=== PATIENT | female | born 1955 | race Caucasian/White ===

== ENCOUNTER → 2021-11-15 10:33 | Outpatient (BNVA) | payer MEDICARE, SELFPAY | PROVIDERS: Family Provider Family Medicine; PCP Family Medicine; Referring Provider Family Medicine; Visit Provider Internal Medicine Critical Care Medicine | DX: R91.8 Other nonspecific abnormal finding of lung field (principal); J43.9 Emphysema, unspecified; I25.10 Atherosclerotic heart disease of native coronary artery without angina pectoris; Z95.5 Presence of coronary angioplasty implant and graft | CPT/HCPCS: 99204 ==

== ENCOUNTER 2021-11-26 05:22 | Day surgery (SDC) | payer MEDICARE, SELFPAY ==
[2021-11-22 11:46] VITALS: BMI 20.9
[2021-11-26] VITALS (10 sets, daily range): BP systolic 94–127; BP diastolic 45–69; PULSE 72–85; RESP 14–18; TEMP 36.3–36.4; O2SAT 88–98
[2021-11-26] MEDS: sodium chloride 0.9% 1,000 ML 30 ML IV (06:39)
--- NOTE | 2021-11-26 07:08 | W.PM.OPSUD ---
Surgery/Procedure H&P Update DATE OF PROCEDURE: November 26, 2021 DATE H&P PERFORMED: 11/15/21 PREOP DIAGNOSIS: Suspected lung cancer PRIMARY INDICATION FOR PROCEDURE: Suspected lung cancer PLANNED PROCEDURE: Bronchoscopy inspection of the airway, possible endobronchial biopsy, bronchoalveolar lavage, endobronchial ultrasound-guided transbronchial needle aspiration of lymph nodes and control of bleeding Operation Date: 11/26/21 07:10 Proposed Procedures p Bronchoscopy [id number],R91.8(Not Applicable) - Roby Lovelace MD s Ebus(Not Applicable) - Roby Lovelace MD
--- NOTE | 2021-11-26 07:15 | ANES.PREANE2 ---
Pre-Anesthetic Assessment Height/Weight: Height 1.68 m Weight 58.967 kg Temp Pulse Resp BP Pulse Ox O2 Del Method 97.5 F L 72 18 127/55 96 11/26/21 06:37 11/26/21 06:37 11/26/21 06:37 11/26/21 06:37 11/26/21 06:37 11/26/21 06:37 Preop Diagnosis: Suspected lung cancer Operation Date: 11/26/21 07:10 Proposed Procedures p Bronchoscopy 26339,[id number],69079,R91.8(Not Applicable) - Roby Lovelace MD s Ebus(Not Applicable) - Roby Lovelace MD Familial anesthetic complications: None Was Beta Padmaja taken within 24 hours: N/A Was Clonidine taken within 24 hours: N/A Last intake: Intake Last Liquid Date 11/25/21 Last Liquid Time 19:30 Last Solid Date 11/25/21 Last Solid Time 19:30 Social Tobacco and No alcohol 1 pack(s) per day 53 pack years Exam alert, oriented x 3, clear to auscultation bilaterally and regular rate & rhythm Airway Submandibular: within normal limits Cervical ROM: within normal limits Mallampati: Class II Dentition: partials History/ROS No significant history except as noted Pulmonary Cough, Exertional Dyspnea and Shortness of Breath suspected lung cancer CV/HEM Coronary Artery Disease pt states she has 3 stents placed about a year ago None reported Hepatic None reported GI None reported Metabolic None reported Musc/skel None reported Neuropsych Anxiety Anesthetic Plan ASA status: 3 Anesthesia: Anesthesia Evaluation and General Risk of > 500 ml blood loss (7ml/kg in children): No Medications/Allergies Home Medications Medication Instructions Recorded Confirmed Last Taken Type alprazolam 1 mg tablet 1 mg PO .HS 03/13/20 11/26/21 11/25/21 History aspirin 81 mg tablet,delayed 81 mg PO DAILY #30 tabs 03/11/21 11/26/21 11/18/21 Rx release (Adult Low Dose Aspirin) carvedilol 6.25 mg tablet 6.25 mg PO BID #60 tabs 03/11/21 11/26/21 11/25/21 Rx clopidogrel 75 mg tablet 75 mg PO DAILY #30 tabs 03/11/21 11/26/21 11/15/21 Rx lovastatin 40 mg tablet 40 mg PO DAILY #30 tabs 03/11/21 11/26/21 11/15/21 Rx lisinopril 20 mg tablet 20 mg PO DAILY 11/26/21 11/26/21 11/15/21 History Allergies Allergy/AdvReac Type Severity Reaction Status Date / Time Penicillins Allergy Unknown Verified 11/26/21 06:14 poison yeny extract Allergy ALGY-Rash Verified 11/26/21 06:14 poison oak extract Allergy ALGY-Rash Verified 11/26/21 06:14 Current Medications Generic Name Dose Route Start Last Admin Trade Name Freq PRN Reason Stop Dose Admin Sodium Chloride 1,000 mls @ 30 mls/hr 11/26/21 06:00 11/26/21 06:39 Sodium Chloride 0.9% IV 11/27/21 05:59 30 mls/hr .Q24H JOSE LUIS Administration PFSH Anesthesia Medical History CAD (coronary artery disease) History of ST elevation myocardial infarction (STEMI) HTN (hypertension) PVD (peripheral vascular disease) Family History Mother Cancer Father Cancer Hypertension Brother Myocardial infarction Social History Smoking and tobacco status: current every day smoker (couple ) cigarettes Packs smoked per day: 1.5 Years cigarettes smoked: 53 [ Other cigarette details: started at age 12] Data Anesthesia Cardiac Studies: No Data to Display
--- NOTE | 2021-11-26 08:08 | PM.OP ---
Operative Report Date of procedure: November 26, 2021 Pre-op diagnosis: Preop Diagnosis Suspected lung cancer Brief History: This is a 65-year-old lady with an extensive history of smoking coming in for bronchoscopic evaluation for suspected lung cancer. A recent PET/CT revealed right upper lobe lung nodule, right hilar lesion that are all PET positive. The patient had PET positive mediastinal and hilar lymphadenopathy as well. Procedure: Name of the procedure: Bronchoscopy with inspection of the airway, endobronchial biopsies, bronchial wash, endobronchial ultrasound-guided transbronchial needle aspiration of lymph nodes and control of bleeding. Indication: Suspected lung cancer Anesthesia: General anesthesia. Local anesthesia: The jaida in the right and left mainstem bronchi were anesthetized with 1% lidocaine, 3 mL. Description of the procedure: The procedure was explained to the patient and the consent was obtained. The patient was brought to the OR. The patient underwent endotracheal intubation for general anesthesia. Following induction of general anesthesia, the bronchoscope was advanced through the ET tube. The lower trachea appeared to be normal. The jaida was splayed. The jaida, the right and left mainstem bronchi are anesthetized with 1% lidocaine. In a systematic manner bilateral bronchial tree was then examined. The bronchoscope was advanced into the left mainstem bronchus. The left upper lobe, lingula and left lower lobe bronchi were examined up to the third subsegmental level and no abnormalities were identified. There is no endobronchial lesion, active bleeding or mucous plug. The bronchoscope was then introduced into the right mainstem bronchus. The right upper lobe was patent. The right bronchus intermedius was nearly completely occluded due to endobronchial growth. I was not able to pass the bronchoscope beyond this lesion. Endobronchial biopsies were obtained from the right bronchus intermedius mass. Multiple samples were obtained. Bronchial wash was performed from the same area. 30 cc of fluid was instilled, fluid return was 12 mL. The fluid was bloody. The endobronchial ultrasound was introduced through the ET tube. Mediastinal and hilar lymphadenopathy was identified with the ultrasound. Fine-needle aspiration was obtained from station 7 and station 10 R. Samples: 1. Bronchoalveolar lavage specimen was sent for cytology and cell block. 2. The endobronchial biopsies are sent for histopathology. 3. The transbronchial needle aspiration of the aforementioned lymph node groups were sent for histopathology. Complications: There was no immediate complications.
--- NOTE | 2021-11-26 08:27 | ANE.PACU2 ---
Inpatient post-anesthesia follow up: Airway intact: Yes Vital signs: Temperature 97.5 F Pulse Rate 72 Respiratory Rate 18 Blood Pressure 127/55 Pulse Oximetry 96 Oxygen Delivery Me thod Room Air Oxygen Flow Rate Fraction of Inspir ed Oxygen Hydration adequate: Yes Nausea and vomiting: No Pain level: Other (0) Mental status: Baseline
[2021-11-26 08:50] LABS: Cyto Order Verification Order Verified
[2021-11-26 10:11] LABS: Apprearance, Bronch Wash Bloody (CLEAR); Color, Bronc Wash Red
[2021-11-26 11:14] LABS: Total Cells Counted Bronch 300
== END 2021-11-26 09:25 | disposition home or self-care (01) ==
PROVIDERS: PCP Family Medicine; Visit Provider Internal Medicine Critical Care Medicine
PROC: BB4BZZZ Ultrasonography of Pleura (ICD-10-PCS; CPT 31625; 2021-11-26 07:00)
DX: C34.91 Malignant neoplasm of unspecified part of right bronchus or lung (principal); C77.1 Secondary and unspecified malignant neoplasm of intrathoracic lymph nodes; J43.9 Emphysema, unspecified; I10 Essential (primary) hypertension; E78.5 Hyperlipidemia, unspecified; I25.10 Atherosclerotic heart disease of native coronary artery without angina pectoris; I25.2 Old myocardial infarction; F17.210 Nicotine dependence, cigarettes, uncomplicated; Z79.02 Long term (current) use of antithrombotics/antiplatelets; Z88.0 Allergy status to penicillin
CPT/HCPCS: 31625; 31624; 31652; 80503; 87070; 87205; 88108; 88305; 88307; 88342; 89050; J0330; J1100; J2250; J2370; J2405; J2704; J3010; J3490; J7030

== ENCOUNTER 2021-12-12 12:51 | Outpatient (CLI) | payer MEDICARE, SELFPAY ==
--- NOTE | 2021-12-12 13:00 | MR_ITS ---
WS: [id number] MRI HEAD WITH CONTRAST TECHNIQUE: Sagittal T1, T2 axial, T2 axial FLAIR, axial susceptibility weighted imaging, axial diffus ion weighted images, and coronal T2 images were obtained. Pre and post-T1 axial and post T1 coronal i mages. ADC and FSPGR images. CLINICAL INFORMATION: Staging COMPARISON: None. FINDINGS: Tiny focus of restricted diffusion in the RIGHT cerebellum consistent with a tiny acute lac unar infarct. Ventricular system and basal cisterns are patent. Evidence of prior chronic lacunar infarcts in the R IGHT cerebellum. Mild small vessel changes with moderate parenchymal volume loss. Small vessel changes in the melissa. Ch ronic lacunar infarcts in the RIGHT cerebellum. Normal vascular flow voids at the skull base. No extr a-axial fluid collections. No evidence of mass or mass effect. Normal posterior nasopharynx. Paranasal sinuses and mastoid air cells well aerated. Normal optic ti sm and pituitary infundibulum. Mild symmetric atrophy temporal lobes and hippocampal formations. No e vidence of enhancing intracranial metastatic disease. Normal dural venous sinuses. MR/MR head wo/w con [id number] IMPRESSION: 1. Tiny focus of restricted diffusion RIGHT cerebellum consistent with a tiny acute lacunar infarct. 2. Evidence of chronic lacunar infarcts in the RIGHT cerebellum. 3. No evidence of enhancing intracranial metastatic disease. 4. Mild small vessel changes. Moderate parenchymal volume loss. Small vessel c hanges in the melissa. 5. No other remarkable findings.
[2021-12-12] MEDS: gadobenate dimeglumine 20 mL vial IV (14:07)
== END 2021-12-12 12:52 | disposition home or self-care (01) ==
PROVIDERS: PCP Family Medicine; Visit Provider Internal Medicine Medical Oncology
DX: C34.2 Malignant neoplasm of middle lobe, bronchus or lung (principal); I63.81 Other cerebral infarction due to occlusion or stenosis of small artery
CPT/HCPCS: 70553

== ENCOUNTER 2021-12-18 13:36 | Oncology outpatient (recurring) (ONCR) | payer MEDICARE, SELFPAY ==
--- NOTE | 2021-12-04 13:35 | XR_ITS ---
WS: [id number] PA and lateral chest, 12/04/2021 Clinical Data: Shortness of breath and cough Comparison: Portable chest, 09/05/2016. CT chest, 11/11/2021. Findings: There are patchy opacities in the right lung with a shift of the heart and mediastinum from left to right. These opacities may represent obstructive pneumonia which is obscuring a right upper lobe nodule seen on the CT scan. The left lung is clear. The heart is normal. The aortic arch shows c alcification. No pneumothorax is seen. The diaphragms are flattened. No effusions are seen. XR/XR chest 2V* [id number] Impression: 1. Right lung patchy opacities which are obscuring the right upper lobe mass se en on CT scan. 2. Shift of the heart and mediastinum from left to right.
--- NOTE | 2021-12-18 14:20 | N.ONRAD NP_ITS ---
Radiation Oncology Consultation Patient Name: Atiya Newsome Date of : 1955 Date of Service: 12/18/2021 Attending Physician: Ac Pacheco M.D. Atiya Newsome was seen in consultation this afternoon at the request of Miguel Ángel Jade M.D. for consideration of thoracic radiotherapy in the management of a recently diagnosed non-small cell lung cancer. The patient evaluated by her primary care physician for rib pain. A chest radiograph identified a right lung nodule. A thoracic CT scan ordered on November 11, 2021 described a 3.8 cm right upper-lobe mass abutting the pleural surface, consolidation within the right lower-lobe, right hilar lymphadenopathy, and a 2 cm lesion within the medial aspect of the right lower-lobe of the lung. A PET scan (independently reviewed in [facility]) ordered on October confirmed a hypermetabolic a right upper-lobe nodule (SUV 21.2, a right lower lobe nodule (10.2), right hilar adenopathy (SUV 17.8), a pre-carinal lymph node (SUV 5.9), and a subcarinal lymph node (SUV 5.9). There was no systemic metastatic disease. A bronchoscopy with endobronchial ultrasound-guided biopsy was performed by Abel Lovelace M.D. on November 26, 2021. Biopsies of the right bronchus intermedius mass and lymph node from station 10R diagnosed a squamous cell carcinoma. An MRI of the head did not characterize intracranial metastatic disease. The patient was evaluated for definitive thoracic radiotherapy. I discussed with Ms. Newsome the [place] [employer] Staging for lung cancer and specifically, the clinical stage IIIB (T4N2) lung cancer corresponding to her disease. I also reviewed The National Comprehensive Cancer Network Guidelines recommending concurrent chemoradiotherapy for the management of locally advanced lung cancer established by the classic study, RTOG 9410, comparing sequential versus concurrent chemoradiotherapy that demonstrated an overall survival advantage for the concurrent chemoradiotherapy regimen. I would endorse a six week course of thoracic radiotherapy. Preceding radiotherapy, a computed tomographic radiotherapy planning scan with contrast in the treatment position will be acquired and co-registered to the patient's staging PET scan to identify the gross tumor volumes. The potential toxicities of thoracic radiotherapy were reviewed. The patient has verbalized understanding would like to proceed as recommended. The patient???s treatment plan was discussed with Miguel Ángel Jade M.D. Signed by: Dr. Ac Pacheco 12/18/2021 3:00:29 PM
[2021-12-18 15:52] LABS: Basophils # 0.1 10^3/uL (0.0-0.1); Basophils % 0.2 %; Eosinophils # 0.1 10^3/uL (0.0-0.8); Eosinophils % 0.3 %; Hematocrit 36.5 % (37.0-47.0); Hemoglobin 11.6 g/dL (11.5-15.3); Lymphocytes # 3.5 10^3/uL (0.8-4.8); Lymphocytes % 13.5 %; Mean Corpuscular HGB Conc 31.8 g/dL (30.0-36.0); Mean Corpuscular Volume 91.3 fl (81-99); Mean Platelet Volume 10.8 fL (7.4-10.4); Monocytes # 1.8 10^3/uL (0.2-0.9); Monocytes % 6.7 %; Neutrophils # 20.42 10^3/uL (1.8-7.7); Neutrophils % 78.2 %; Nucleated Red Blood Cells % 0 %; Platelet Count 366 10^3/cmm (130-400); Red Cell Distribution Width 17.3 % (12.1-15.1); White Blood Count 26.1 10^3/uL (4.0-10.0)
[2021-12-18 16:02] LABS: INR 0.97 (0.8-1.2)
[2021-12-18 16:13] LABS: Alanine Aminotransferase 11 U/L (0-33); Albumin Level 3.5 g/dL (3.5-5.2); Alkaline Phosphatase 52 U/L (35-105); Aspartate Amino Transferase 12 U/L (0-32); Blood Urea Nitrogen 38 mg/dL (8-23); Carbon Dioxide 27 mmol/L (22-29); Chloride 100 mmol/L (98-107); Globulin 3.3 g/dL (1.3-4.6); Glucose 78 mg/dL (65-115); Osmolality Calculated 298 mOsm/kg (285-295); Sodium 140 mmol/L (136-145); Total Bilirubin 0.2 mg/dL (0.15-1.2); Total Protein 6.8 g/dL (6.6-8.7)
[2021-12-18 16:16] LABS: Anion Gap 17.6 (5-19); Potassium 4.6 mmol/L (3.5-5.1)
== END 2021-12-27 23:59 | disposition home or self-care (01) ==
PROVIDERS: PCP Family Medicine; Visit Provider Radiology Radiation Oncology
DX: R07.81 Pleurodynia; C34.81 Malignant neoplasm of overlapping sites of right bronchus and lung; C77.8 Secondary and unspecified malignant neoplasm of lymph nodes of multiple regions; Z87.891 Personal history of nicotine dependence
CPT/HCPCS: 36415; 71046; 80053; 85025; 85610; 99205; 99214

== ENCOUNTER → 2021-12-25 10:52 | Outpatient (BNVA) | payer MEDICARE, SELFPAY | PROVIDERS: PCP Family Medicine; Visit Provider Surgery | DX: C34.2 Malignant neoplasm of middle lobe, bronchus or lung (principal) | CPT/HCPCS: 99203 ==

== ENCOUNTER 2021-12-30 07:59 | Day surgery (SDC) | payer MEDICARE, SELFPAY ==
[2021-12-27 16:03] VITALS: BMI 19.8
--- NOTE | 2021-12-30 07:27 | P.ANESASSM_ITS ---
Pre-Anesthetic Assessment Height/Weight: Height 1.68 m Weight 55.792 kg Preop Diagnosis: Suspected lung cancer Operation Date: 12/30/21 09:10 Proposed Procedures p Portacath Placement 46984,C34.2(Not Applicable) - Curt Peguero MD Pulmonary Chronic Obstructive Pulmonary Disease Lung cancer Emphysema CV/HEM Arrythmia (SVT Hx), Coronary Artery Disease, Congestive Heart Failure (Hx of stress induced cardiomyopathy ), Hypertension and Peripheral Vascular Disease Metabolic Hyperlipidemia Neuropsych MRI Head 12/12/21 MR/MR head wo/w con [id number] IMPRESSION: ? 1.? Tiny focus of restricted diffusion RIGHT cerebellum consistent with a tiny acute lacunar infarct. 2.? Evidence of chronic lacunar infarcts in the RIGHT cerebellum. 3.? No evidence of enhancing intracranial metastatic disease. 4.? Mild small vessel changes. Moderate parenchymal volume loss. Small vessel changes in the melissa. 5.? No other remarkable findings. ? Medications/Allergies Home Medications Medication Instructions Recorded Confirmed Last Taken Type alprazolam 1 mg tablet 1 mg PO .HS 03/13/20 12/27/21 11/25/21 History aspirin 81 mg tablet,delayed 81 mg PO DAILY #30 tabs 03/11/21 12/27/21 11/18/21 Rx release (Adult Low Dose Aspirin) carvedilol 6.25 mg tablet 6.25 mg PO BID #60 tabs 03/11/21 12/27/21 11/25/21 Rx clopidogrel 75 mg tablet 75 mg PO DAILY #30 tabs 03/11/21 12/27/21 12/25/21 Rx lovastatin 40 mg tablet 40 mg PO DAILY #30 tabs 03/11/21 12/27/21 11/15/21 Rx lisinopril 20 mg tablet 20 mg PO DAILY 11/26/21 12/27/21 11/15/21 History albuterol sulfate 90 mcg/actuation 2 puff inhalation Q6H PRN 12/18/21 12/27/21 Unknown Rx aerosol inhaler shortness of breath or wheezing #8.5 grams fluticasone fur. 100 mcg-umeclid 1 inh inhalation DAILY #60 ea 12/18/21 12/27/21 Unknown Rx 62.5 mcg-vilant 25 mcg inhalat.powder (Trelegy Ellipta) Allergies Allergy/AdvReac Type Severity Reaction Status Date / Time Penicillins Allergy Unknown Verified 12/27/21 15:59 poison yeny extract Allergy ALGY-Rash Verified 12/27/21 15:59 poison oak extract Allergy ALGY-Rash Verified 12/27/21 15:59 [facility] Anesthesia Medical History Anxiety and depression CAD (coronary artery disease) COPD (chronic obstructive pulmonary disease) History of ST elevation myocardial infarction (STEMI) HTN (hypertension) Peripheral arterial disease Stress-induced cardiomyopathy Surgical History S/P PTCA (percutaneous transluminal coronary angioplasty) Family History Mother Cancer Father Cancer Hypertension Brother Myocardial infarction CAD (coronary artery disease) Denies family history of Diabetes Clotting disorder Dementia Hyperlipidemia Psychiatric illness Chronic kidney disease (CKD) Suicide Anesthesia complication Bleeding disorder Lung disease Stroke Social History Smoking and tobacco status: former smoker Alcohol intake: never Data Anesthesia Cardiac Studies: No Data to Display
--- NOTE | 2021-12-30 09:13 | W.PM.OPSUD ---
Surgery/Procedure H&P Update DATE OF PROCEDURE: December 30, 2021 DATE H&P PERFORMED: 12/25/21 H&P UPDATE INFORMATION: I have reviewed H&P completed within last 30 days, I have examined patient prior to procedure and Changes to prior documentation as noted here (Patient seems to be lethargic and had recently acute onset of chest pain, appears to be dehydrated.) PREOP DIAGNOSIS: Lung cancer PRIMARY INDICATION FOR PROCEDURE: We will hold off proceeding with elective procedure and we will plan to send the patient for the ED for further work-up, patient reports that she did not get anything to drink or eat for the past 5 days, I think it would be wiser to have her further evaluated. And get some IV fluids on board and I will asked my office to reschedule with the patient. Patient and her spouse understood and they agreed on the plan of care. Assurance and education All questions have been answered and all concerns have been addressed to patient's satisfaction. PLANNED PROCEDURE: Operation Date: 12/30/21 09:10 Proposed Procedures p Portacath Placement 49647,C34.2(Not Applicable) - Curt Peguero MD
--- NOTE | 2021-12-30 09:25 | SUR.PREOP ---
PATIENT PRESENTED TO ROOM C/O CHEST PAIN AND NOT EATING OR DRINKING IN 5 DAYS. VS STABLE. REPORTS SHE WENT TO ER IN [place] LAST THURSDAY. LAB REPORTS AND NOTES OBTAINED FROM [facility]. DR. VALLEJO AND ANESTHESIA AWARE. THEY DISCUSSED SITUATION WITH PATIENT AND RECOMMENDED SHE GO TO THE ER. REPORT GIVEN TO ELEANOR. PATIENT TAKEN TO ER
--- NOTE | 2021-12-30 09:53 | PM.MISC ---
Miscellaneous Note Purpose of Documentation: Patient seen pre op by Doctor Mernaurg who recommended evaluation for ER given NPO status for 5 days, generalized weakness, and difficulty swallowing .
== END 2021-12-30 16:38 | disposition home or self-care (01) ==
LOC: OR 08:05
PROVIDERS: PCP Family Medicine; Visit Provider Surgery
DX: Z53.9 Procedure and treatment not carried out, unspecified reason (principal)

== ENCOUNTER 2021-12-30 09:14 | Observation (INO) | payer MEDICARE, SELFPAY ==
[2021-12-30] VITALS (8 sets, daily range): BP systolic 93–130; BP diastolic 50–74; PULSE 69–84; RESP 16–18; TEMP 36.3–37.1; O2SAT 85–98; BMI 19.3; BMI 22.1
--- NOTE | 2021-12-30 09:36 | ECG_ITS ---
[facility] Test Date: 2021-12-30 Pat Name: Atiya Newsome Department: Room: Gender: Female Clinical Lab Specialist: : 1955 Requested By: Bulmaro Vickers Order Number: [id number] Arroyo MD: Manfred Colbert M.D. Measurements Intervals [place] Rate: 72 P: 71 IN: 149 QRS: 64 QRSD: 84 T: 75 QT: 354 QTc: 387 Interpretive Statements SINUS RHYTHM Compared to ECG 09/06/2016 04:09:17 T-wave abnormality no longer present Electronically Signed On 12-30-2021 17:37:50 CDT by Manfred Colbert M.D. [id number]
--- NOTE | 2021-12-30 09:36 | XR_ITS ---
WS: [id number] XR chest 1V portable [id number] REASON FOR EXAM: cp FINDINGS: Compared to previous examination of 12/04/2021 there appears to be increased atelectasis in the right l ower lung. Right hilar mass appears more prominent and dense which likely is due to overlapping of at electatic right lower lung. Posterior right lung mass is less well defined and of decreased density compared to previous examinat ion. Left lung field remains clear. XR/XR chest 1V portable [id number] IMPRESSION: Increased atelectasis in the right lower lung compared to the previous examinat ion.
--- NOTE | 2021-12-30 10:15 | W.ED.CHESTPA ---
HPI - Chest Pain General: Chief Complaint: Chest Pain Stated Complaint: CHEST PAIN/ HASN'T EATEN IN 5 DAYS Time Seen by Provider: 12/30/21 09:39 Source: patient Mode of arrival: ambulatory Limitations: no limitations History of Present Illness: 66-year-old female comes in complaining of chest discomfort that she relates to acid reflux she states been going on for the last 5 days. Does not radiate anywhere she has chronic shortness of breath 2 months ago she was diagnosed with lung cancer on the right lung she is supposed to be getting a port and initiate radiation therapy. She normally is on clopidogrel without was stopped in anticipation of her port placement. She denies hematochezia melena hematemesis or coffee-ground emesis. No dysuria urgency or frequency. No abdominal discomfort no extremity pain or swelling states she has been on the couch last 5 days has not been able to eat or drink. MD complaint: chest pain Onset (ago): day(s) (5) Timing of current episode: episodic Pain radiation: none Severity: moderate Quality: sharp Relieving factors: nothing Exacerbating factors: nothing Associated symptoms: Deny abdominal pain, diaphoresis, dyspnea, fever(s), leg edema, nausea, palpitations, sense of impending doom, syncope or vomiting Review of Systems Const: Reports: fatigue and malaise; Denies: fever(s), chills or diaphoresis ENMT: Denies: throat pain, ear or mastoid pain, nasal discharge or nasal congestion Card: Reports: chest pain; Denies: palpitations, irregular heart rhythm, edema or syncope Resp: Denies: dyspnea GI: Denies: abdominal pain, nausea or vomiting : Denies: flank pain, difficulty voiding, dysuria, urinary frequency or urinary urgency Skin/Breast: Denies: rash or pruritus PFS ED PFSH: Medical History Anxiety and depression CAD (coronary artery disease) COPD (chronic obstructive pulmonary disease) History of ST elevation myocardial infarction (STEMI) HTN (hypertension) Peripheral arterial disease Stress-induced cardiomyopathy Surgical History S/P PTCA (percutaneous transluminal coronary angioplasty) Family History Mother Cancer Father Cancer Hypertension Brother Myocardial infarction CAD (coronary artery disease) Denies family history of Diabetes Clotting disorder Dementia Hyperlipidemia Psychiatric illness Chronic kidney disease (CKD) Suicide Anesthesia complication Bleeding disorder Lung disease Stroke Social History Smoking and tobacco status: former smoker Alcohol intake: never Physical Exam Const: GENERAL APPEARANCE: cooperative and comfortable ORIENTATION/CONSCIOUSNESS: Yes awake, Yes oriented to person, Yes oriented to place and Yes oriented to time HENMT: COMMON NORMALS: normocephalic, atraumatic and hearing grossly normal bilaterally HEAD & SCALP: normocephalic and atraumatic Neck/C-Spine: COMMON NORMALS: full ROM and no lymphadenopathy Lymph: LYMPHATIC: no lymphadenopathy noted and no lymphedema noted Resp: COMMON NORMALS: normal respiratory effort, No retractions, No use of accessory muscles and clear to auscultation bilaterally AUSCULTATION: clear to auscultation bilaterally Cardio: COMMON NORMALS: regular rate, regular rhythm and No murmurs present (Cardio) RATE: regular rate RHYTHM: regular rhythm GI: COMMON NORMALS: Soft to palpation and No hepatosplenomegaly present AUSCULTATION: Yes normoactive bowel sounds PALPATION: Yes Soft to palpation, No Tenderness to palpation present (GI), No Guarding due to palpation present (GI) and Yes No hepatosplenomegaly present : COMMON NORMALS: Yes no CVA tenderness BLADDER/KIDNEY EXAM: Yes no CVA tenderness Back/Pelvis: COMMON NORMALS: no CVA tenderness Extremity: COMMON NORMALS: normal to inspection, capillary refill normal, no clubbing, cyanosis or edema, no calf tenderness and no pedal edema Neuro: SENSORIUM/ORIENTATION: Yes oriented to person, Yes oriented to place and Yes oriented to time Skin: COMMON NORMALS: no rashes or lesions noted GENERAL SKIN EXAM: no rashes or lesions noted Course Vital Signs: Vital signs: Vital Signs Temperature 98.3 F 12/31/21 03:36 Pulse Rate 67 12/31/21 06:00 Respiratory Rate 16 12/31/21 03:36 Blood Pressure 94/60 12/31/21 03:36 Pulse Oximetry 98 12/31/21 03:36 Oxygen Delivery Me thod 12/31/21 03:36 Oxygen Flow Rate 1 12/31/21 03:36 MDM - Chest Pain Medical Decision Making Patient presents with severe chest pain. Reviewed previous CT in the [facility] system from outside facility and repeated CT today. Patient has significant progression of tumor. There is a question of empyema versus necrotic tumor discussed with Dr. Astorga and with Dr. Lovelace. Dr. Astorga does not feel it is something that he could successfully intervene on. Dr. Lovelace recommends transfer to [place] for bronchial stenting to try to relieve the postobstructive pneumonia. I discussed with the patient she wanted to consider transfer. I called [place] they are not taking any transfers offered to the patient to call [facility] or [place] to pursue similar treatments she declined she would rather not be transferred that far. After reviewing her chart and discussing with Dr. Jade ultimately we decided to admit her here for IV fluids and placement of vascular access. Because of her pneumonia and her current lung status she may not be able to get a port she may have to have a PICC line placed additionally because of the difficulty she is having with swallowing she may need a PEG tube. Discussed with Dr. Peguero and Dr. Chowdary. Dr. Chowdary will admit for the hospitalist service, Dr. Peguero will consult evaluate for vascular access I did call Dr. Lovelace back just to make sure he was aware that she was being admitted and he will weigh in as needed. Reviewed with the family they concur with plan. Dr. Jade is also aware and will make arrangements for initiation of treatment as soon as patient is able. Medical Records I reviewed the patient's medical records. Lab Data I reviewed the patient's lab results. : 12/31/21 04:30 12/31/21 04:30 Radiology Impressions Chest X-Ray 12/30/21 09:36 IMPRESSION: Increased atelectasis in the right lower lung compared to the previous examination. Chest CT 12/30/21 11:29 IMPRESSION: 1. Spiculated RIGHT upper lobe neoplasm is similar to the prior studies measuring 2.2 x 2.0 CM. 2. Partial collapse the RIGHT lower lobe is new from previous with secretions and obstruction of the RIGHT lower lobe bronchi. 3. Secretions with bronchovascular thickening about the RIGHT mainstem bronchus with narrowing is progressed. 4. New low-attenuation fluid or necrotic tumor about the RIGHT hilum extending along the collapsed RIGHT lower lobe and RIGHT fissure with associated peripheral enhancement suspicious for empyema. This is new from previous.Some of the RIGHT hilum process likely represents tumor necrosis. 5. LEFT lung is well aerated. Notified Rober Barton DO at 12/30/2021 12:22 PM. Laboratory Results WBC 8.4 10^3/uL (4.0-10.0) 12/30/21 10:17 RBC 3.43 10^6/uL (4.1-5.3) L 12/30/21 10:17 Hgb 10.4 g/dL (11.5-15.3) L 12/30/21 10:17 Hct 33.5 % (37.0-47.0) L 12/30/21 10:17 MCV 97.7 fl (81-99) 12/30/21 10:17 MCH 30.3 pg (28.0-34.0) 12/30/21 10:17 MCHC 31.0 g/dL (30.0-36.0) 12/30/21 10:17 RDW 17.3 % (12.1-15.1) H 12/30/21 10:17 Plt Count 211 10^3/cmm (130-400) 12/30/21 10:17 MPV 10.8 fL (7.4-10.4) H 12/30/21 10:17 Neut % (Auto) 68.0 % 12/30/21 10:17 Lymph % (Auto) 18.1 % 12/30/21 10:17 [place] % (Auto) 9.9 % 12/30/21 10:17 Eos % (Auto) 3.0 % 12/30/21 10:17 Baso % (Auto) 0.4 % 12/30/21 10:17 Neut # (Auto) 5.71 10^3/uL (1.8-7.7) 12/30/21 10:17 Lymph # (Auto) 1.5 10^3/uL (0.8-4.8) 12/30/21 10:17 [place] # (Auto) 0.8 10^3/uL (0.2-0.9) 12/30/21 10:17 Eos # (Auto) 0.3 10^3/uL (0.0-0.8) 12/30/21 10:17 Baso # (Auto) 0.0 10^3/uL (0.0-0.1) 12/30/21 10:17 Nucleated RBC % (auto) 0 % 12/30/21 10:17 Nucleated RBCs # 0.0 /100WBC 12/30/21 10:17 Sodium 132 mmol/L (136-145) L 12/30/21 10:17 Potassium 3.7 mmol/L (3.5-5.1) 12/30/21 10:17 Chloride 97 mmol/L (98-107) L 12/30/21 10:17 Carbon Dioxide 20 mmol/L (22-29) L 12/30/21 10:17 Anion Gap 18.7 (5-19) 12/30/21 10:17 BUN 25 mg/dL (8-23) H 12/30/21 10:17 Creatinine 0.5 mg/dL (0.5-0.9) 12/30/21 10:17 GFR Calculation 123.1 mL/min (90-130) 12/30/21 10:17 Glucose 83 mg/dL (65-115) 12/30/21 10:17 Calculated Osmolality 278 mOsm/kg (285-295) L 12/30/21 10:17 Lactic Acid 2.0 mmol/L (0.5-2.2) 12/30/21 10:17 Calcium 8.9 mg/dL (8.5-10.5) 12/30/21 10:17 Total Bilirubin 0.4 mg/dL (0.15-1.2) 12/30/21 10:17 AST 12 U/L (0-32) 12/30/21 10:17 ALT 10 U/L (0-33) 12/30/21 10:17 Alkaline Phosphatase 53 U/L (35-105) 12/30/21 10:17 Creatine Kinase 17 U/L (26-192) L 12/30/21 10:17 Troponin T Baseline 16 ng/L (0-10) H 12/30/21 10:17 Troponin T 120 Minute 17.64 ng/L (0-10) H 12/30/21 12:40 Delta Troponin T 1.64 ABS# (0-10) 12/30/21 12:40 NT-Pro-B Natriuret Pep 322 pg/mL (0-125) H 12/30/21 10:17 Total Protein 5.9 g/dL (6.6-8.7) L 12/30/21 10:17 Albumin 2.7 g/dL (3.5-5.2) L 12/30/21 10:17 Globulin 3.2 g/dL (1.3-4.6) 12/30/21 10:17 Lipase 8 U/L (13-60) L 12/30/21 10:17 Procalcitonin 0.07 ng/mL (0-0.5) 12/30/21 12:40 Urine Color Yellow (Yellow) 12/30/21 11:08 Urine Appearance Clear (CLEAR) 12/30/21 11:08 Urine pH 5.5 (5-7) 12/30/21 11:08 Ur Specific [place] >= 1.030 (1.005-1.030) 12/30/21 11:08 Urine Protein Negative (Negative) 12/30/21 11:08 Urine Glucose (UA) Negative (Normal) 12/30/21 11:08 Urine Ketones =>160 (Negative) 12/30/21 11:08 Urine Blood Trace-intact (Negative) A 12/30/21 11:08 Urine Nitrate Negative 12/30/21 11:08 Urine Bilirubin Small (Negative) 12/30/21 11:08 Urine Urobilinogen 0.2 mg/dL (Negative) 12/30/21 11:08 Ur Leukocyte Esterase Negative (Negative) 12/30/21 11:08 Urine RBC 0-4 /hpf (0-2) H 12/30/21 11:08 Urine WBC Rare /hpf (0-5) 12/30/21 11:08 Ur Squamous Epith Cells 5-10 /hpf (0-5) H 12/30/21 11:08 Amorphous Sediment Not Reportable 12/30/21 11:08 Urine Bacteria 1+ /hpf (NONE) H 12/30/21 11:08 Discharge Plan Discharge Patient Disposition: Admitted As Inpatient Admit Provider: Charity Chowdary Clinical Impression: 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, Odynophagia, Anemia, Pneumonia Condition: Stable Coding Level of Care Code ED Medical Representative for Chg Fwd Exam Comprehensive
[2021-12-30] MEDS: lidocaine 2% viscous 15 ML, aluminum-mag hydrox-simethicon 30 ML, sucralfate oral liq 1 GM PO (10:37)
[2021-12-30] MEDS: sodium chloride 0.9% 1,000 ML 999 ML IV (10:38)
[2021-12-30] MEDS: famotidine 20 mg/2 mL INJ 40 MG IVP (10:39)
[2021-12-30 10:42] LABS: Basophils % 0.4 %; Eosinophils # 0.3 10^3/uL (0.0-0.8); Hematocrit 33.5 % (37.0-47.0); Hemoglobin 10.4 g/dL (11.5-15.3); Lymphocytes # 1.5 10^3/uL (0.8-4.8); Lymphocytes % 18.1 %; Mean Corpuscular Hemoglobin 30.3 pg (28.0-34.0); Mean Corpuscular Volume 97.7 fl (81-99); Mean Platelet Volume 10.8 fL (7.4-10.4); Monocytes # 0.8 10^3/uL (0.2-0.9); Monocytes % 9.9 %; Neutrophils # 5.71 10^3/uL (1.8-7.7); Nucleated Red Blood Cells % 0 %; Platelet Count 211 10^3/cmm (130-400); Red Blood Count 3.43 10^6/uL (4.1-5.3); Red Cell Distribution Width 17.3 % (12.1-15.1); White Blood Count 8.4 10^3/uL (4.0-10.0)
[2021-12-30] MEDS: promethazine 25 mg/mL SDV 1 mL IM (10:42)
[2021-12-30 11:02] LABS: Troponin(5th) Baseline 16 ng/L (0-10)
[2021-12-30 11:18] LABS: Bilirubin Urine Small (Negative); Blood Urine Trace-intact (Negative); Glucose Urine UA Negative (Normal); Leukocyte Esterase Urine Negative (Negative); Nitrate Urine Negative; Protein Urine Negative (Negative); Specific Gravity, Urine >= 1.030 (1.005-1.030); Urine Appearance Clear (CLEAR); Urine Color Yellow (Yellow); Urobilinogen Urine 0.2 mg/dL (Negative); pH Urine 5.5 (5-7)
--- NOTE | 2021-12-30 11:29 | CT_ITS ---
WS: [id number] CT CHEST TECHNIQUE: Contrast enhanced CT of the chest with coronal and sagittal reformatted images. CLINICAL INFORMATION: lung ca COMPARISON: PET/CT November 18, 2021 CT chest November 11, 2021 DLP: 270.[address] scans at [facility] use at least one of these dose optimization techniques: automated e xposure control; mA and/or kV adjustment per patient size (includes targeted exams where dose is matc hed to clinical indication); or iterative reconstruction. FINDINGS: Volume loss RIGHT hemithorax. Partial collapse of the RIGHT lower lobe is new from the prior examinat ions. Obstruction of the RIGHT lower lobe bronchi. Secretions and narrowing in the RIGHT main stem br onchus. RIGHT upper lobe remains well aerated. Low-attenuation fluid/necrotic tumor about the RIGHT hilum and RIGHT fissure with with associated per ipheral enhancement. This extends along the collapsed RIGHT lower lobe and fissure suspicious for emp yema. This is new from previous. Some of the more bulky RIGHT hilum process likely represents tumor n ecrosis. Stable spiculated neoplasm in the RIGHT upper lobe measuring 2.2 x 2.0 cm. LEFT lung is well aerated . Normal caliber thoracic aorta. Mild aortic calcification. Coronary calcification. Adrenal glands ar e normal. Normal GE junction. Fatty atrophy of the pancreas. CT/CT chest w con* [id number] IMPRESSION: 1. Spiculated RIGHT upper lobe neoplasm is similar to the prior studies measur ing 2.2 x 2.0 CM. 2. Partial collapse the RIGHT lower lobe is new from previous with secretions and obstruction of the RIGHT lower lobe bronchi. 3. Secretions with bronchovascular thickening about the RIGHT mainstem bronchu s with narrowing is progressed. 4. New low-attenuation fluid or necrotic tumor about the RIGHT hilum extending along the collapsed RIGHT lower lobe and RIGHT fissure with associated periphe ral enhancement suspicious for empyema. This is new from previous.Some of the R IGHT hilum process likely represents tumor necrosis. 5. LEFT lung is well aerated. Notified Rober Barton DO at 12/30/2021 12:22 PM.
[2021-12-30 11:30] LABS: Alanine Aminotransferase 10 U/L (0-33); Albumin Level 2.7 g/dL (3.5-5.2); Alkaline Phosphatase 53 U/L (35-105); Anion Gap 18.7 (5-19); Aspartate Amino Transferase 12 U/L (0-32); Blood Urea Nitrogen 25 mg/dL (8-23); Calcium 8.9 mg/dL (8.5-10.5); Carbon Dioxide 20 mmol/L (22-29); Chloride 97 mmol/L (98-107); Creatine Phosphokinase 17 U/L (26-192); Globulin 3.2 g/dL (1.3-4.6); Glomerular Filtration Rate 123.1 mL/min (90-130); Glucose 83 mg/dL (65-115); Lipase 8 U/L (13-60); NT Pro B Type Natriuretic Pept 322 pg/mL (0-125); Osmolality Calculated 278 mOsm/kg (285-295); Potassium 3.7 mmol/L (3.5-5.1); Sodium 132 mmol/L (136-145); Total Bilirubin 0.4 mg/dL (0.15-1.2); Total Protein 5.9 g/dL (6.6-8.7)
[2021-12-30 11:34] LABS: Add Urine Microscopic? YES
--- NOTE | 2021-12-30 11:36 | ECG_ITS ---
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 Measurements Intervals [place] Rate: 72 P: 82 AK: 163 QRS: 60 QRSD: 85 T: 74 QT: 358 QTc: 394 Interpretive Statements SINUS RHYTHM Compared to ECG 12/30/2021 09:58:10 No significant changes Electronically Signed On 12-30-2021 17:42:59 CDT by Manfred Colbert M.D. [id number]
[2021-12-30 11:44] LABS: Add Urine Culture? No; Bacteria Urine 1+ /hpf; RBC Urine 0-4 /hpf (0-2); WBC Urine RARE /hpf (0-5)
[2021-12-30] MEDS: iohexol 350 mg/mL 100 mL Btl IV (11:51)
--- NOTE | 2021-12-30 12:48 | PC.PHAR ---
pt sts she has not taken meds for a couple days because she is supposed to be having a procedure
[2021-12-30 13:16] LABS: Troponin 5 2HR 17.64 ng/L (0-10); Troponin 5 2HR Delta 1.64 ABS# (0-10)
[2021-12-30] MEDS: cefepime 2,000 MG in sodium chloride 0.9% (plus) 50 ML 100 MG IV (13:58)
--- NOTE | 2021-12-30 15:36 | ECG_ITS ---
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 Measurements Intervals [place] Rate: 80 P: 72 WV: 147 QRS: 55 QRSD: 88 T: 74 QT: 355 QTc: 411 Interpretive Statements SINUS RHYTHM Compared to ECG 12/30/2021 12:29:34 No significant changes Electronically Signed On 12-30-2021 22:44:32 CDT by Manfred Colbert M.D. [id number]
--- NOTE | 2021-12-30 16:35 | PM.HP ---
Providers/Chief Complaint Admitting Physician: Charity Chowdary MD Primary Care Provider: Galen Felipe Chief Complaint: CHEST PAIN/ HASN'T EATEN IN 5 DAYS History of Present Illness Atiya Nwesome is a 66 year old female with history of squamous cell lung cancer stage IIIa, coronary disease generalized anxiety peripheral vascular disease, COPD history of stent placement in her heart and peripheral vessels [id number] smoking history follows up with Dr. Jade, Dr. Lovelace she has been recommended a bronchial stent by Dr. Lovelace, Dr. Jade is planning to start chemo and radiotherapy and wanted Dr. Peguero to put a Mediport today, she was sent to the ER by Dr. Peguero when she told him that she has not eaten since last Thursday and she is experiencing some tightness in her throat and she is not able to breathe considering the symptoms she was sent to the ER for further evaluation Patient is stating that she was only eating to some extent before Thursday however since Thursday she has not eaten anything and she has been laying on the couch today she made a lot of effort to attend her appointment for Mediport placement. She has not noticed fever, chest pain she has been noticing shortness of breath, dysphagia some tightness which she describing as burning sensation just below her sternum she is not endorsing any chest pain or fever. Dr. Peguero as recommended barium swallow Patient is agreeable for Mediport placement and PEG tube placement if barium swallow is positive for severe anatomical pathology Patient is full code Review of Systems Const: Reports: body aches, change in appetite and change in weight Eyes: Denies: change in vision ENMT: Reports: throat pain Card: Denies: chest pain Resp: Reports: dyspnea GI: Reports: nausea and heartburn : Denies: flank pain Musc: Denies: neck pain Skin/Breast: Denies: rash Neuro: Denies: headache(s) Psych: Reports: anxiety Endo: Denies: polyuria Maciel/Lymph: Denies: easy bruising All/Imm: Denies: urticaria Medications/Allergies Home Medications Medication Instructions Recorded Confirmed Last Taken Type alprazolam 1 mg tablet 1 mg PO QPM 03/13/20 12/30/21 12/29/21 History aspirin 81 mg tablet,delayed 81 mg PO DAILY #30 tabs 03/11/21 12/30/21 12/26/21 Rx release (Adult Low Dose Aspirin) carvedilol 6.25 mg tablet 6.25 mg PO BID #60 tabs 03/11/21 12/30/21 12/28/21 Rx clopidogrel 75 mg tablet 75 mg PO DAILY #30 tabs 03/11/21 12/30/21 12/25/21 Rx lovastatin 40 mg tablet 40 mg PO DAILY #30 tabs 03/11/21 12/30/21 12/28/21 Rx lisinopril 20 mg tablet 20 mg PO DAILY 11/26/21 12/30/21 12/28/21 History albuterol sulfate 90 mcg/actuation 2 puff inhalation Q6H PRN 12/18/21 12/30/21 12/28/21 Rx aerosol inhaler shortness of breath or wheezing #8.5 grams fluticasone fur. 100 mcg-umeclid 1 inh inhalation DAILY #60 ea 12/18/21 12/30/21 12/28/21 Rx 62.5 mcg-vilant 25 mcg inhalat.powder (Trelegy Ellipta) food supplemt, lactose-reduced 1 ea PO TID 12/30/21 12/30/21 Unknown History (Ensure oral liquid) omeprazole 20 mg capsule,delayed 20 mg PO DAILY 12/30/21 12/30/21 Unknown History release prednisone 20 mg tablet 20 mg PO BID 12/30/21 12/30/21 Unknown History Allergies Allergy/AdvReac Type Severity Reaction Status Date / Time Penicillins Allergy Unknown Verified 12/30/21 12:46 poison yeny extract Allergy ALGY-Rash Verified 12/30/21 12:46 poison oak extract Allergy ALGY-Rash Verified 12/30/21 12:46 PFSH Acute PFSH: Medical History Anxiety and depression CAD (coronary artery disease) COPD (chronic obstructive pulmonary disease) History of ST elevation myocardial infarction (STEMI) HTN (hypertension) Peripheral arterial disease Stress-induced cardiomyopathy Surgical History S/P PTCA (percutaneous transluminal coronary angioplasty) Family History Mother Cancer Father Cancer Hypertension Brother Myocardial infarction CAD (coronary artery disease) Denies family history of Diabetes Clotting disorder Dementia Hyperlipidemia Psychiatric illness Chronic kidney disease (CKD) Suicide Anesthesia complication Bleeding disorder Lung disease Stroke Social History Smoking and tobacco status: former smoker Alcohol intake: never Vitals/I&O/Wt Last Vital Signs Temp 97.4 F L 12/30/21 15:38 Pulse 72 12/30/21 15:38 Resp 16 12/30/21 15:38 BP 130/74 12/30/21 15:38 Pulse Ox 95 12/30/21 15:38 O2 Del Method 12/30/21 09:32 12/30/21 12/30/21 12/30/21 06:59 14:59 22:59 Intake Total 1000 / 1000 Balance 1000 / 1000 Weight last 48 hrs Weight 54.431 kg Physical Exam Narrative: elderly female Cachectic, malnourished Currently on room air Hemodynamically stable Muscle mass loss Hand muscle also. EOMI, PERRLA Nonfocal neuro exam Pleasant and cooperative Lower extremity no edema Pleasant during my evaluation Diminished breath sounds bilaterally right greater than left Data : 12/30/21 10:17 12/30/21 10:17 Micro: Microbiology 12/30/21 14:55 Blood Culture - Preliminary Blood SPECIMEN COLLECTED 12/30/21 14:50 Blood Culture - Preliminary Blood SPECIMEN COLLECTED A&P Assessment and plan (1) 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: (2) Emphysema of lung: (3) Lung mass: (4) PVD (peripheral vascular disease): (5) HTN (hypertension): Qualifiers: Hypertension type: primary hypertension Qualified Code(s): I10 - Essential (primary) hypertension (6) CAD (coronary artery disease): Qualifiers: Coronary Disease-Associated Artery/Lesion type: [place] artery [place] vs. transplanted heart: [place] heart Associated angina: without angina Qualified Code(s): I25.10 - Atherosclerotic heart disease of [place] coronary artery without angina pectoris (7) Odynophagia: Plan Acute odynophagia Squamous cell cancer of lung Dr. Lovelace recommended endobronchial lesion Currently she is on room air She is about to start chemo and radiotherapy Now her new complaint is odynophagia and dehydration She is agreeable for Port-A-Cath placement and PEG tube if barium swallow shows anatomical dysfunction in the morning Dr. Peguero is consulted I will hydrate her with IV fluids with D5 normal saline She is hemodynamically stable Not requiring oxygen We will give her IV opioids for now We will give her Protonix 40 mg IV twice daily For insomnia we will give her Restoril Patient wants to try eating broth for now we will try clear liquids and then she will be kept n.p.o. 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 transplanted heart: [place] heart Associated angina: without angina Odynophagia R13.10
[2021-12-30] MEDS: morphine 4 mg/mL SDV 1 mL IVP (17:36)
[2021-12-30] MEDS: pantoprazole 40 mg SDV IVP (17:41)
[2021-12-30] MEDS: dextrose 5%-sod chloride 0.9% 1,000 ML 30 ML IV (17:42)
[2021-12-30 17:52] LABS: Procalcitonin 0.07 ng/mL (0-0.5)
[2021-12-30 18:18] LABS: Troponin 5 6HR 21.49 ng/L (0-10)
[2021-12-30 18:20] LABS: Troponin 5 6HR Delta 5.49 ng/L (0-12)
[2021-12-30] MEDS: vancomycin 1,000 MG in sodium chloride 0.9% 250 ML 250 MG IV (18:22)
[2021-12-30] MEDS: clindamycin 600 MG/50 ML PREMIX 100 MG IV (21:58)
[2021-12-31] VITALS (9 sets, daily range): BP systolic 94–121; BP diastolic 41–70; PULSE 67–89; RESP 16–20; TEMP 36.7–37.9; O2SAT 90–98
[2021-12-31 04:42] LABS: Basophils % 0.3 %; Eosinophils # 0.3 10^3/uL (0.0-0.8); Eosinophils % 3.8 %; Hematocrit 26.8 % (37.0-47.0); Hemoglobin 8.6 g/dL (11.5-15.3); Lymphocytes # 1.5 10^3/uL (0.8-4.8); Lymphocytes % 22.4 %; Mean Corpuscular HGB Conc 32.1 g/dL (30.0-36.0); Mean Corpuscular Hemoglobin 30.3 pg (28.0-34.0); Mean Corpuscular Volume 94.4 fl (81-99); Mean Platelet Volume 10.6 fL (7.4-10.4); Monocytes # 0.6 10^3/uL (0.2-0.9); Monocytes % 9.3 %; Neutrophils # 4.22 10^3/uL (1.8-7.7); Neutrophils % 63.4 %; Nucleated Red Blood Cells % 0 %; Platelet Count 173 10^3/cmm (130-400); Red Blood Count 2.84 10^6/uL (4.1-5.3); Red Cell Distribution Width 17.2 % (12.1-15.1); White Blood Count 6.7 10^3/uL (4.0-10.0)
[2021-12-31] MEDS: clindamycin 600 MG/50 ML PREMIX 100 MG IV (05:07)
[2021-12-31 05:19] LABS: Anion Gap 11.5 (5-19); Blood Urea Nitrogen 16 mg/dL (8-23); C Reactive Protein 90.3 mg/L (0.0-4.9); Carbon Dioxide 24 mmol/L (22-29); Chloride 103 mmol/L (98-107); Glomerular Filtration Rate 159.2 mL/min (90-130); Glucose 92 mg/dL (65-115); Magnesium 1.9 mg/dL (1.7-2.3); Osmolality Calculated 281 mOsm/kg (285-295); Potassium 3.5 mmol/L (3.5-5.1); Sodium 135 mmol/L (136-145)
[2021-12-31] MEDS: pantoprazole 40 mg SDV IVP ×2 (05:51→17:08)
[2021-12-31] MEDS: vancomycin 1,000 MG in sodium chloride 0.9% 250 ML 250 MG IV (05:55)
[2021-12-31] MEDS: sodium chloride 0.9% 1,000 ML 999 ML IV (10:21)
[2021-12-31] MEDS: morphine 4 mg/mL SDV 1 mL IVP (10:23)
--- NOTE | 2021-12-31 10:46 | PM.PN ---
Subjective Subjective: Patient will get a PICC line today Barium swallow today Dr. Peguero is planned for PICC line placement Will decide PEG tube placement indication after her barium swallow study results Vitals/I&O/Wt Last Vital Signs Temp 98.1 F 12/31/21 08:11 Pulse 67 12/31/21 08:11 Resp 18 12/31/21 10:23 BP 101/61 12/31/21 08:11 Pulse Ox 93 12/31/21 10:23 O2 Del Method 12/31/21 08:11 O2 Flow Rate 1 12/31/21 03:36 12/30/21 12/31/21 12/31/21 22:59 06:59 14:59 Intake Total 1069 50 / 0 250 / 250 Balance 1069 50 2119 250 / 250 Weight last 48 hrs Weight 62.097 kg Weight 54.431 kg Physical Exam Narrative: Patient is awake and alert Macerated Malnourished Currently on room air No active chest pain or shortness of breath Abdomen soft Nonfocal neuro exam Data : 12/31/21 04:30 12/31/21 04:30 Micro: Microbiology 12/30/21 14:55 Blood Culture - Preliminary Blood SPECIMEN COLLECTED 12/30/21 14:50 Blood Culture - Preliminary Blood SPECIMEN COLLECTED A&P Assessment and plan (1) Anemia: (2) Pneumonia: (3) Odynophagia: (4) 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: (5) PVD (peripheral vascular disease): (6) HTN (hypertension): Qualifiers: Hypertension type: primary hypertension Qualified Code(s): I10 - Essential (primary) hypertension (7) Lung mass: (8) Emphysema of lung: Plan Dehydration related hypotension she was given 1 L bolus today which improved her blood pressure Lung mass, patient will need a PICC line to start her chemoradiotherapy services recommended against Port-A-Cath for now Odynophagia: We will follow-up with barium swallow study, patient is agreeable for PEG tube placement if indicated, further plan will be made after barium swallow results Postobstructive pneumonia however she is not requiring oxygen, no sign of sepsis I have discontinued her vancomycin and clindamycin, her changes are chronic, I would only continue cefepime for now Continue IV fluids Full code N.p.o. Start clear liquids after he barium swallow study Holding antihypertensive agents, she was hypotensive Attestations Medical Necessity Statement*: Continue medical management Time Spent in Patient Care: 40 Coding Level of Care Code Acute Violin Restorer for Chg Fwd Diagnoses Anemia D64.9 Pneumonia J18.9 Odynophagia R13.10 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 C34.2 PVD (peripheral vascular disease) I73.9 HTN (hypertension) I10 Hypertension type: primary hypertension Lung mass R91.8 Emphysema of lung J43.9
--- NOTE | 2021-12-31 11:00 | FL_ITS ---
WS: [id number] FL barium swallow modifd [id number] REASON FOR EXAM: Oropharyngeal dysphagia FLUOROSCOPY TIME: 1min [id number] # OF SPOT FILMS: 1 FINDINGS: Examination was performed under the supervision of speech therapy department. With the patient in the upright sitting position the swallowing of thin and thick barium was monitore d and recorded fluoroscopically. No obstruction of the esophagus was identified and swallowed barium readily entered the stomach. Detailed report will be rendered by the speech therapy department. FL/FL barium swallow modifd [id number] IMPRESSION: Modified barium swallow as above.
--- NOTE | 2021-12-31 11:02 | PC.CHAP ---
Pastoral Care Encounter/Spiritual Assessment Type of Contact [] Declined rewinder operator visit [] Patient/Family/Request visit [] Outpatient visit [] Follow-up visit [] Physician referral [] Code/Alert [x] Routine visit [] Staff referral [] Actively dying [] Patient sleeping [] Family support [] [] Out of room [] Palliative care [] [] Receiving care in room [] Pre-surgical visit [] Trauma [] Long length of stay [] ICU visit [] Other: Relational/Emotional Strength [x] Patient feels connected with others/family/visitors/staff [] Distress [] Loneliness/isolation [] Abandonment Spirituality of Patient [x] Person of Sakshi [] Attends Voodoo of their Sakshi [x] Believes in Prayer [] Reads Bible or Yarsani materials [] There are Spiritual issues to be addressed After School Teacher Interventions [x] Prayer [x] Active listening [x] Non-anxious presence [] Spiritual/emotional support [] Crisis/trauma care [] Spiritual counseling [] Bereavement support [] Provided bereavement packet [] Provided Bible/devotional materials [] Provided toy/stuffed animal, coloring book to patient or family member [] Provided Communion [] Anointing/Bynum [] Salvation [x] Completed spiritual assessment [] Other: Impact on Illness or Injury [] Angry [] Fearful [] Anxious [] Often cries [] Exhaustion [] Unable to work [] Unable to attend taoism [] Unable to walk/stand [] Unable to read [] Unable to drive [] Unable to eat/drink [] Unable to sleep [] Unable to be with family [] Patient intubated [] Other: Summary Time spent with patient 10 min
--- NOTE | 2021-12-31 11:28 | PC.NURSE ---
pt to radiology for [facility] [address] [facility] swallow study at 1058
--- NOTE | 2021-12-31 11:39 | PC.NURSE ---
1138 pt returned to 255-1 via w/c after barrium swallow
--- NOTE | 2021-12-31 12:47 | XR_ITS ---
WS: [id number] XR chest 1V portable [id number] REASON FOR EXAM: Post Picc placement FINDINGS: Right arm PICC line is been placed the tip is at the cavoatrial junction in satisfactory position for use. Somewhat better expansion of the right lower lobe and right middle lobe compared to the previous day however moderate atelectasis persists in the right lower lobe. Reexpanding lung contains interstitial opacities, presumed residual fluid. Right hilar mass again noted. The left lung remains clear. XR/XR chest 1V portable [id number] IMPRESSION: Arm PICC line placement as above. PICC line position was confirmed over the amanda ne 1415 hours.
[2021-12-31] MEDS: cefepime 1,000 MG in sodium chloride 0.9% (plus) 50 ML 100 MG IV (14:38)
--- NOTE | 2021-12-31 16:00 | PM.PN ---
Subjective Subjective: Patient was seen and examined today. Undergone a modified barium swallow per my recommendation and patient seems to doing well with swallowing as I did discuss the case with the speech pathology today. Also she did undergo a PICC line. Patient's PowerPort procedure was aborted yesterday by me and got postponed due to her overall generalized weakness and chest pain. Sent to the emergency department for further evaluation. Medications: Reviewed: Yes Vitals/I&O/Wt Last Vital Signs Temp 98.2 F 12/31/21 15:17 Pulse 78 12/31/21 15:17 Resp 16 12/31/21 15:17 BP 121/62 12/31/21 15:17 Pulse Ox 90 12/31/21 15:17 O2 Del Method 12/31/21 08:11 O2 Flow Rate 1 12/31/21 03:36 12/31/21 12/31/21 12/31/21 06:59 14:59 22:59 Intake Total 50 / 2120 250 / 250 Balance 50 / 2120 250 / 250 Weight last 48 hrs Weight 136 lb 14.4 oz Weight 120 lb Physical Exam Narrative: Patient is conscious alert oriented X3 No apparent distress BMI 22 Head and neck examination PERRLA no masses no cervical lymphadenopathy no jaundice Abdomen nontender nondistended soft no organomegaly guarding or rigidity/no signs of peritonitis Right arm PICC line in place Extremities no cyanosis no clubbing no edema Data : 12/31/21 04:30 12/31/21 04:30 Micro: Microbiology 12/30/21 14:55 Blood Culture - Preliminary Blood NEGATIVE TO DATE 12/30/21 14:50 Blood Culture - Preliminary Blood NEGATIVE TO DATE A&P Assessment and plan (1) 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: From surgical standpoint of view patient required hospitalization due to weakness and chest pain. Further work-up was done in the form of modified barium swallow and that was cleared by speech pathology. Does not require PEG tube. And did receive a PICC line to avoid exposing her to anesthesia for the time being due to her overall generalized weakness and sickness. I am happy to follow on the patient as an outpatient to place a PowerPort down the road to substitute the PICC line. Meanwhile emphasis on appropriate nutrition with focusing on protein shakes on daily basis Assurance and education All questions have been answered and all concerns have been addressed to patient's satisfaction. Attestations Medical Necessity Statement*: Per admitting service Time Spent in Patient Care: 16 - 35 minutes Coding Level of Care Code Acute Patch Machine Operator for g Fwd Diagnoses 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 C34.2
[2021-12-31] MEDS: dextrose 5%-sod chloride 0.9% 1,000 ML 30 ML IV (17:02)
[2021-12-31] MEDS: acetaminophen 500 mg Tablet PO (18:36)
--- NOTE | 2021-12-31 19:53 | PC.NURSE ---
VS Temp 100.2 and BP 94/41 reported to pt care nurse
--- NOTE | 2021-12-31 20:38 | PC.NURSE ---
Patient states her pain is right in her chest, while pointing to her epigastric region. Patient states it is heartburn related.
[2022-01-01 01:45] VITALS: RESP 20; O2SAT 92
[2022-01-01] MEDS: morphine IR 15 mg Tablet PO (01:45)
[2022-01-01] MEDS: cefepime 1,000 MG in sodium chloride 0.9% (plus) 50 ML 100 MG IV (01:45)
[2022-01-01 04:49] VITALS: BP 138/75; PULSE 73; RESP 18; TEMP 36.6; O2SAT 92
[2022-01-01] MEDS: acetaminophen 500 mg Tablet PO ×2 (04:57→09:38)
[2022-01-01 05:14] LABS: Basophils % 0.3 %; Eosinophils # 0.2 10^3/uL (0.0-0.8); Eosinophils % 3.4 %; Hematocrit 25.2 % (37.0-47.0); Lymphocytes # 1.7 10^3/uL (0.8-4.8); Lymphocytes % 24.5 %; Mean Corpuscular HGB Conc 31.7 g/dL (30.0-36.0); Mean Corpuscular Hemoglobin 29.5 pg (28.0-34.0); Mean Platelet Volume 10.5 fL (7.4-10.4); Monocytes # 0.6 10^3/uL (0.2-0.9); Neutrophils # 4.39 10^3/uL (1.8-7.7); Neutrophils % 63.1 %; Nucleated Red Blood Cells % 0 %; Platelet Count 165 10^3/cmm (130-400); Red Blood Count 2.71 10^6/uL (4.1-5.3); Red Cell Distribution Width 17.2 % (12.1-15.1)
[2022-01-01 05:34] LABS: Anion Gap 11.3 (5-19); Blood Urea Nitrogen 11 mg/dL (8-23); Calcium 7.9 mg/dL (8.5-10.5); Carbon Dioxide 24 mmol/L (22-29); Chloride 104 mmol/L (98-107); Glomerular Filtration Rate 221.9 mL/min (90-130); Glucose 103 mg/dL (65-115); Osmolality Calculated 282 mOsm/kg (285-295); Potassium 3.3 mmol/L (3.5-5.1); Sodium 136 mmol/L (136-145)
[2022-01-01 06:00] VITALS: PULSE 75
[2022-01-01] MEDS: pantoprazole 40 mg SDV IVP (06:02)
[2022-01-01 08:00] VITALS: BP 119/67; PULSE 76; RESP 18; TEMP 36.4; O2SAT 91
--- NOTE | 2022-01-01 10:30 | P.DS_ITS ---
Discharge Providers Date of Admission: 12/30/21 16:03 Date of Discharge: January 01, 2022 Attending Provider at Admission: Charity Chowdary MD Attending Provider at Discharge: Charity Chowdary MD Primary Care Provider: Galen Feliep Diagnoses at Discharge Discharge Diagnosis (1) 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: Status: Acute Reason for Visit 2 Reason for Visit: CHEST PAIN/ HASN'T EATEN IN 5 DAYS Hospital Course Hospital Course 66 female with history of, she was advised to go to [facility] for stent placement in her bronchus, follows up with Dr. Jade, she was advised to go to Dr. Peguero for Port-A-Cath placement however she was sent to the ER because of her odynophagia and shortness of breath. Initially there was concern for pneumonia she was given antibiotics. She remained afebrile without leukocytosis. X-ray did not show any new infiltrates however she was given antipseudomonal coverage during her admission. For odynophagia modified barium swallow was unremarkable. She is still complaining of pain just below her sternum whenever she eats. No oral thrush or candidal infection signs noted. A PICC line was placed in order to buy some time before Port-A-Cath placement. She will see Dr. Richter within 4 to 7 days for an EGD and Port-A-Cath placement. I have decided to give her fluconazole for now along opioids. She remained hemodynamically stable did well on room air. She is endorsing weight loss, muscle mass loss generalized fatigue. In future there is plan to start chemoradiation. Physical Exam Narrative: Patient is awake and alert Cachectic Malnourished Muscle mass loss Currently on room air Hemodynamically stable Complains of odynophagia No oral thrush Hematoma PERRLA Nonfocal neuro exam Discharge Data Studies Completed and Pending Completed Studies During Hospitalization Category Date Time Status CT chest w con* [id number] Stat Cat Scan 12/30/21 11:29 Completed FL barium swallow modifd [id number] Routine Exams 12/31/21 11:00 Completed XR chest 1V portable [id number] Routine Exams 12/31/21 12:47 Completed XR chest 1V portable [id number] Stat Exams 12/30/21 09:36 Completed Pending at discharge Category Date Time Status Blood Culture Stat Lab 12/30/21 14:55 Results Radiology Impressions Chest CT 12/30/21 11:29 IMPRESSION: 1. Spiculated RIGHT upper lobe neoplasm is similar to the prior studies measuring 2.2 x 2.0 CM. 2. Partial collapse the RIGHT lower lobe is new from previous with secretions and obstruction of the RIGHT lower lobe bronchi. 3. Secretions with bronchovascular thickening about the RIGHT mainstem bronchus with narrowing is progressed. 4. New low-attenuation fluid or necrotic tumor about the RIGHT hilum extending along the collapsed RIGHT lower lobe and RIGHT fissure with associated peripheral enhancement suspicious for empyema. This is new from previous.Some of the RIGHT hilum process likely represents tumor necrosis. 5. LEFT lung is well aerated. Notified Rober Barton DO at 12/30/2021 12:22 PM. Modified Barium Swallow 12/31/21 11:00 IMPRESSION: Modified barium swallow as above. Chest X-Ray 12/31/21 12:47 IMPRESSION: Arm PICC line placement as above. PICC line position was confirmed over the phone 1415 hours. Laboratory Results WBC 7.0 10^3/uL (4.0-10.0) 01/01/22 05:07 RBC 2.71 10^6/uL (4.1-5.3) L 01/01/22 05:07 Hgb 8.0 g/dL (11.5-15.3) L 01/01/22 05:07 Hct 25.2 % (37.0-47.0) L 01/01/22 05:07 MCV 93.0 fl (81-99) 01/01/22 05:07 MCH 29.5 pg (28.0-34.0) 01/01/22 05:07 MCHC 31.7 g/dL (30.0-36.0) 01/01/22 05:07 RDW 17.2 % (12.1-15.1) H 01/01/22 05:07 Plt Count 165 10^3/cmm (130-400) 01/01/22 05:07 MPV 10.5 fL (7.4-10.4) H 01/01/22 05:07 Neut % (Auto) 63.1 % 01/01/22 05:07 Lymph % (Auto) 24.5 % 01/01/22 05:07 [place] % (Auto) 8.0 % 01/01/22 05:07 Eos % (Auto) 3.4 % 01/01/22 05:07 Baso % (Auto) 0.3 % 01/01/22 05:07 Neut # (Auto) 4.39 10^3/uL (1.8-7.7) 01/01/22 05:07 Lymph # (Auto) 1.7 10^3/uL (0.8-4.8) 01/01/22 05:07 [place] # (Auto) 0.6 10^3/uL (0.2-0.9) 01/01/22 05:07 Eos # (Auto) 0.2 10^3/uL (0.0-0.8) 01/01/22 05:07 Baso # (Auto) 0.0 10^3/uL (0.0-0.1) 01/01/22 05:07 Nucleated RBC % (auto) 0 % 01/01/22 05:07 Nucleated RBCs # 0.0 /100WBC 01/01/22 05:07 Sodium 136 mmol/L (136-145) 01/01/22 05:07 Potassium 3.3 mmol/L (3.5-5.1) L 01/01/22 05:07 Chloride 104 mmol/L (98-107) 01/01/22 05:07 Carbon Dioxide 24 mmol/L (22-29) 01/01/22 05:07 Anion Gap 11.3 (5-19) 01/01/22 05:07 BUN 11 mg/dL (8-23) 01/01/22 05:07 Creatinine 0.3 mg/dL (0.5-0.9) L 01/01/22 05:07 GFR Calculation 221.9 mL/min (90-130) H 01/01/22 05:07 Glucose 103 mg/dL (65-115) 01/01/22 05:07 Calculated Osmolality 282 mOsm/kg (285-295) L 01/01/22 05:07 Lactic Acid 2.0 mmol/L (0.5-2.2) 12/30/21 10:17 Calcium 7.9 mg/dL (8.5-10.5) L 01/01/22 05:07 Magnesium 1.9 mg/dL (1.7-2.3) 12/31/21 04:30 Total Bilirubin 0.4 mg/dL (0.15-1.2) 12/30/21 10:17 AST 12 U/L (0-32) 12/30/21 10:17 ALT 10 U/L (0-33) 12/30/21 10:17 Alkaline Phosphatase 53 U/L (35-105) 12/30/21 10:17 Creatine Kinase 17 U/L (26-192) L 12/30/21 10:17 Troponin T Baseline 16 ng/L (0-10) H 12/30/21 10:17 Troponin T 120 Minute 17.64 ng/L (0-10) H 12/30/21 12:40 Delta Troponin T 1.64 ABS# (0-10) 12/30/21 12:40 Troponin T Hi Sens 6Hr 21.49 ng/L (0-10) H 12/30/21 17:15 Troponin T Hi Sens 6Hr Delta 5.49 ng/L (0-12) 12/30/21 17:15 C-Reactive Protein 90.3 mg/L (0.0-4.9) H 12/31/21 04:30 NT-Pro-B Natriuret Pep 322 pg/mL (0-125) H 12/30/21 10:17 Total Protein 5.9 g/dL (6.6-8.7) L 12/30/21 10:17 Albumin 2.7 g/dL (3.5-5.2) L 12/30/21 10:17 Globulin 3.2 g/dL (1.3-4.6) 12/30/21 10:17 Lipase 8 U/L (13-60) L 12/30/21 10:17 Procalcitonin 0.07 ng/mL (0-0.5) 12/30/21 12:40 Urine Color Yellow (Yellow) 12/30/21 11:08 Urine Appearance Clear (CLEAR) 12/30/21 11:08 Urine pH 5.5 (5-7) 12/30/21 11:08 Ur Specific [place] >= 1.030 (1.005-1.030) 12/30/21 11:08 Urine Protein Negative (Negative) 12/30/21 11:08 Urine Glucose (UA) Negative (Normal) 12/30/21 11:08 Urine Ketones =>160 (Negative) 12/30/21 11:08 Urine Blood Trace-intact (Negative) A 12/30/21 11:08 Urine Nitrate Negative 12/30/21 11:08 Urine Bilirubin Small (Negative) 12/30/21 11:08 Urine Urobilinogen 0.2 mg/dL (Negative) 12/30/21 11:08 Ur Leukocyte Esterase Negative (Negative) 12/30/21 11:08 Urine RBC 0-4 /hpf (0-2) H 12/30/21 11:08 Urine WBC Rare /hpf (0-5) 12/30/21 11:08 Ur Squamous Epith Cells 5-10 /hpf (0-5) H 12/30/21 11:08 Amorphous Sediment Not Reportable 12/30/21 11:08 Urine Bacteria 1+ /hpf (NONE) H 12/30/21 11:08 Vitals Last Vital Signs Temp 97.5 F L 01/01/22 08:00 Pulse 76 01/01/22 08:00 Resp 18 01/01/22 08:00 BP 119/67 01/01/22 08:00 Pulse Ox 91 01/01/22 08:00 O2 Del Method 01/01/22 08:00 O2 Flow Rate 0.5 12/31/21 19:52 Discharge Plan Discharge Patient Disposition: Home Condition: Stable Prescriptions: New oxycodone 10 mg tablet 10 mg PO Q6H PRN (Reason: pain) Qty: 20 0RF omeprazole 20 mg tablet,delayed release (DR/EC) 20 mg PO DAILY 84 Days Qty: 60 0RF sennosides-docusate sodium [Senna-S] 8.6-50 mg tablet 1 tab-cap PO DAILY Qty: 20 0RF fluconazole 100 mg tablet 100 mg PO DAILY 14 Days Qty: 14 0RF Continued alprazolam 1 mg tablet 1 mg PO QPM carvedilol 6.25 mg tablet 6.25 mg PO BID Qty: 60 12RF lovastatin 40 mg tablet 40 mg PO DAILY Qty: 30 12RF albuterol sulfate 90 mcg/actuation HFA aerosol inhaler 2 puff inhalation Q6H PRN (Reason: shortness of breath or wheezing) Qty: 8.5 0RF Trelegy Ellipta 100-62.5-25 mcg blister with device 1 inh inhalation DAILY Qty: 60 6RF Ensure Liquid 1 ea PO TID Changed lisinopril 20 mg tablet 10 mg PO DAILY Qty: 10 0RF Held aspirin [Adult Low Dose Aspirin] 81 mg tablet,delayed release (DR/EC) 81 mg PO DAILY Qty: 30 12RF Hold Instructions: Resume on 01/15/22. clopidogrel 75 mg tablet 75 mg PO DAILY Qty: 30 12RF Hold Instructions: Resume on 01/15/22. Discontinued prednisone 20 mg tablet 20 mg PO BID No Action omeprazole 20 mg capsule,delayed release(DR/EC) 20 mg PO DAILY Discharge Orders: Discharge Order (Routine); Ordered 01/01/22 Ordered By: Charity Chowdary Referrals: Curt Peguero MD [Physician] - 01/08/22 10:15 am (Return to surgery office in 1 week. ) Galen Felipe [Primary Care Provider] - 01/06/22 11:20 am (Your follow up appointment will be with Reta Altamirano on 01-06-2022 at 11:20) Patient Instructions: Opioid Safety Discharge Attestations Time Spent in Discharge Care*: less than 30 min Quality Metrics Clinical Quality Measures [ No reported AMI, CVA or VTE this stay] Coding Level of Care Code Acute Chg FW DC note Diagnoses 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 C34.2
--- NOTE | 2022-01-01 10:46 | PC.NURSE ---
24hr post picc line placement dressing change completed by this recorder ...procedure done with sterile technique...pt vanessa procedure well
[2022-01-01 11:06] VITALS: BP 119/67; PULSE 76; RESP 18; TEMP 36.4; O2SAT 91
== END 2022-01-01 11:21 | disposition home or self-care (01) ==
LOC: ER 14:12 → MEDSURG 15:40
PROVIDERS: Physician Assistant; Admitting Provider Internal Medicine; Emergency Provider Family Medicine; PCP Family Medicine; Visit Provider Internal Medicine
DX: C34.2 Malignant neoplasm of middle lobe, bronchus or lung (principal); I25.10 Atherosclerotic heart disease of native coronary artery without angina pectoris; J44.9 Chronic obstructive pulmonary disease, unspecified; I25.2 Old myocardial infarction; I10 Essential (primary) hypertension; Z87.891 Personal history of nicotine dependence; J18.9 Pneumonia, unspecified organism; D64.9 Anemia, unspecified; R13.10 Dysphagia, unspecified; I73.9 Peripheral vascular disease, unspecified
CPT/HCPCS: 36415; 36569; 36592; 71045; 71260; 74230; 80048; 80053; 81001; 82550; 83605; 83690; 83735; 83880; 84145; 84484; 85025; 86140; 87040; 92611; 93005; 96365; 96366; 96367; 96372; 96375; 99285; C9113; G0378; J0692; J2270; J2550; J3370; J3490; J7030; J7050; Q9967

== ENCOUNTER 2022-01-08 10:12 | Observation (INO) | payer MEDICARE, SELFPAY ==
[2022-01-08] VITALS (99 sets, daily range): BP systolic 67–137; BP diastolic 38–70; PULSE 61–88; RESP 15–47; TEMP 35.9–36.7; O2SAT 89–100; BMI 19.3
--- NOTE | 2022-01-08 10:45 | ED_ITS ---
HPI - SOB/Dyspnea General: Chief Complaint: Shortness of Breath/Dyspnea Stated Complaint: Low BP, Sent by Marielena Time Seen by Provider: 01/08/22 10:45 Source: patient Mode of arrival: ambulatory History of Present Illness: HPI Narrative: 66-year-old female presents to the emergency room complaints of not feeling well generalized weakness dysphagia hypotension. She was at Dr. Peguero's office for follow-up and was noted to be hypotensive directed to the emergency room. MD elicited complaint: shortness of breath Pertinent past history: other (Lung CTA) Onset (ago): week(s) Context: recent illness Timing: constant Severity: moderate Exacerbating factors: exertion Relieving factors: rest Known history of: COPD and other (Lung CA) Associated symptoms: Reports chest pain, myalgias, nausea and sense of impending doom; Deny abdominal pain, chest congestion, cough, diaphoresis, dizziness, extremity pain, fever(s), hemoptysis, lightheadedness, orthopnea, palpitations, paresthesias, polydipsia, polyuria, rash, syncope or vomiting Treatment prior to arrival: none Review of Systems Const: Denies: fever(s), chills, malaise or diaphoresis ENMT: Denies: throat pain, ear or mastoid pain, nasal discharge or nasal congestion Card: Reports: chest pain; Denies: palpitations, lightheadedness, syncope or orthopnea Resp: Reports: dyspnea, productive cough and wheezing; Denies: hemoptysis or chest congestion GI: Reports: nausea; Denies: abdominal pain or vomiting : Denies: flank pain, difficulty voiding, dysuria, urinary frequency or urinary urgency Musc: Denies: extremity pain Skin/Breast: Denies: rash or pruritus Neuro: Denies: dizziness Endo: Denies: polyuria or polydipsia PFSH ED PFSH: Medical History Anemia Anxiety and depression CAD (coronary artery disease) COPD (chronic obstructive pulmonary disease) Emphysema of lung History of ST elevation myocardial infarction (STEMI) HTN (hypertension) Lung mass 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 Peripheral arterial disease Pneumonia Port-A-Cath in place She will get a PICC line PVD (peripheral vascular disease) Stress-induced cardiomyopathy Surgical History S/P PTCA (percutaneous transluminal coronary angioplasty) Family History Mother Cancer Father Cancer Hypertension Brother Myocardial infarction CAD (coronary artery disease) Denies family history of Diabetes Clotting disorder Dementia Hyperlipidemia Psychiatric illness Chronic kidney disease (CKD) Suicide Anesthesia complication Bleeding disorder Lung disease Stroke Social History Smoking and tobacco status: former smoker Alcohol intake: never Physical Exam Const: COMMON NORMALS: no acute distress GENERAL APPEARANCE: cooperative and comfortable ORIENTATION/CONSCIOUSNESS: Yes awake, Yes oriented to person, Yes oriented to place and Yes oriented to time HENMT: COMMON NORMALS: normocephalic, atraumatic and hearing grossly normal bilaterally HEAD & SCALP: normocephalic and atraumatic Resp: COMMON NORMALS: normal respiratory effort, No retractions and No use of accessory muscles AUSCULTATION: rhonchi (Reticulated on the right) and wheezes Cardio: COMMON NORMALS: regular rate, regular rhythm and No murmurs present (Cardio) RATE: regular rate RHYTHM: regular rhythm GI: COMMON NORMALS: Soft to palpation and No hepatosplenomegaly present AUSCULTATION: Yes normoactive bowel sounds PALPATION: Yes Soft to palpation, No Tenderness to palpation present (GI), No Guarding due to palpation present (GI) and Yes No hepatosplenomegaly present Extremity: COMMON NORMALS: normal to inspection, capillary refill normal, no clubbing, cyanosis or edema, no calf tenderness and no pedal edema Neuro: SENSORIUM/ORIENTATION: Yes oriented to person, Yes oriented to place and Yes oriented to time Skin: COMMON NORMALS: no rashes or lesions noted GENERAL SKIN EXAM: no rashes or lesions noted Course Vital Signs: Vital signs: Vital Signs Temperature 97.7 F 01/08/22 10:41 Pulse Rate 66 01/08/22 12:41 Respiratory Rate 18 01/08/22 12:41 Blood Pressure 96/63 01/08/22 12:41 Pulse Oximetry 97 01/08/22 12:41 Oxygen Delivery Me thod 01/08/22 12:41 Oxygen Flow Rate 2 01/08/22 12:41 MDM - SOB/Dyspnea Medical Decision Making Discussed case with both Dr. Peguero and Dr. Jade. We will admit her IV fluids Dr. Jade will consult as well as Dr. Marielena Jade to see about potential initiating chemotherapy. Unfortunately even there was a non-small and seems to grown quite significantly. Garrigus will also be consulted at 1 point we considered placing a PEG tube to help with her dysphagia. At also still would be beneficial to have a port although we will have to see if she can be resuscitated enough to tolerate it. One of the concerns is anesthesia with her lung cancer may be difficult to get off the ventilator if she has to be intubated for general anesthesia. Admitted with hospitalist Dr. Dueñas. Yasmany and Marielena to consult. Lab Data : 01/08/22 11:05 01/08/22 11:05 Labs/Radiology: Radiology Impressions Chest X-Ray 01/08/22 10:47 IMPRESSION: 1. Stable right perihilar mass 2. Interstitial congestion right perihilar and upper lobe 3. Right upper lobe mass seen on CT is not visible 4. Right side PICC in the SVC 5. Hyperexpanded left hemithorax Laboratory Results WBC 14.8 10^3/uL (4.0-10.0) H 01/08/22 11:05 RBC 2.86 10^6/uL (4.1-5.3) L 01/08/22 11:05 Hgb 8.4 g/dL (11.5-15.3) L 01/08/22 11:05 Hct 26.8 % (37.0-47.0) L 01/08/22 11:05 MCV 93.7 fl (81-99) 01/08/22 11:05 MCH 29.4 pg (28.0-34.0) 01/08/22 11:05 MCHC 31.3 g/dL (30.0-36.0) 01/08/22 11:05 RDW 17.3 % (12.1-15.1) H 01/08/22 11:05 Plt Count 481 10^3/cmm (130-400) H 01/08/22 11:05 MPV 10.3 fL (7.4-10.4) 01/08/22 11:05 Neut % (Auto) 73.3 % 01/08/22 11:05 Lymph % (Auto) 13.2 % 01/08/22 11:05 [place] % (Auto) 9.2 % 01/08/22 11:05 Eos % (Auto) 1.4 % 01/08/22 11:05 Baso % (Auto) 0.5 % 01/08/22 11:05 Neut # (Auto) 10.83 10^3/uL (1.8-7.7) H 01/08/22 11:05 Lymph # (Auto) 2.0 10^3/uL (0.8-4.8) 01/08/22 11:05 [place] # (Auto) 1.4 10^3/uL (0.2-0.9) H 01/08/22 11:05 Eos # (Auto) 0.2 10^3/uL (0.0-0.8) 01/08/22 11:05 Baso # (Auto) 0.1 10^3/uL (0.0-0.1) 01/08/22 11:05 Nucleated RBC % (auto) 0 % 01/08/22 11:05 Nucleated RBCs # 0.0 /100WBC 01/08/22 11:05 Specimen Type Arterial 01/08/22 11:20 Sample Site Radial, left 01/08/22 11:20 ABG pH 7.42 (7.35-7.45) 01/08/22 11:20 ABG pCO2 38.6 mmHg (35-45) 01/08/22 11:20 ABG pO2 114.0 mmHg (80.0-100.0) H 01/08/22 11:20 ABG HCO3 25.2 mmol/L (22-26) 01/08/22 11:20 ABG O2 Saturation 99.5 01/08/22 11:20 ABG Base Excess 0.8 mmol/L (-2.0-2.0) 01/08/22 11:20 Pito Test Pos 01/08/22 11:20 A-a O2 Gradient 8.3 mmHg (5-10) 01/08/22 11:20 Hematocrit 27.3 % (37-47) L 01/08/22 11:20 Hgb O2 Saturation 97.9 % (95-100) 01/08/22 11:20 Carboxyhemoglobin 1.5 %THgb (0.4-20.1) 01/08/22 11:20 Methemoglobin 0.1 % (0.4-1.5) L 01/08/22 11:20 Total Hemoglobin 8.9 g/dL (12-16) L 01/08/22 11:20 Sodium 135.0 mmol/L (131-143) 01/08/22 11:20 Potassium 3.9 mmol/L (3.5-5.0) 01/08/22 11:20 Glucose 116.0 mg/dL (70-115) H 01/08/22 11:20 Ionized Calcium 1.3 mmol/L (1.1-1.4) 01/08/22 11:20 O2 Delivery Device Nc 01/08/22 11:20 O2 Liters/Min 3.0 % 01/08/22 11:20 FiO2 32.0 % 01/08/22 11:20 Radio Station Audio Engineer ID Amh 01/08/22 11:20 Sodium 131 mmol/L (136-145) L 01/08/22 11:05 Potassium 4.5 mmol/L (3.5-5.1) 01/08/22 11:05 Chloride 96 mmol/L (98-107) L 01/08/22 11:05 Carbon Dioxide 25 mmol/L (22-29) 01/08/22 11:05 Anion Gap 14.5 (5-19) 01/08/22 11:05 BUN 15 mg/dL (8-23) 01/08/22 11:05 Creatinine 0.9 mg/dL (0.5-0.9) 01/08/22 11:05 GFR Calculation 62.5 mL/min (90-130) L 01/08/22 11:05 Glucose 125 mg/dL (65-115) H 01/08/22 11:05 Calculated Osmolality 274 mOsm/kg (285-295) L 01/08/22 11:05 Calcium 9.8 mg/dL (8.5-10.5) 01/08/22 11:05 Total Bilirubin 0.4 mg/dL (0.15-1.2) 01/08/22 11:05 AST 18 U/L (0-32) 01/08/22 11:05 ALT 16 U/L (0-33) 01/08/22 11:05 Alkaline Phosphatase 61 U/L (35-105) 01/08/22 11:05 Total Protein 6.5 g/dL (6.6-8.7) L 01/08/22 11:05 Albumin 2.7 g/dL (3.5-5.2) L 01/08/22 11:05 Globulin 3.8 g/dL (1.3-4.6) 01/08/22 11:05 Discharge Plan Discharge Patient Disposition: Admitted As Inpatient Admit Provider: Gunnar Berkowitz Clinical Impression: Acute dehydration, Non-small cell cancer of right lung, Dysphagia Condition: Stable Coding Level of Care Code ED Veterinarian Laboratory Animal Care for Vishnu Reyes
--- NOTE | 2022-01-08 10:47 | XRR_ITS ---
PROCEDURE INFORMATION: Exam: XR Chest Exam date and time: 01/08/2022 10:53 AM Age: 66 years old Clinical indication: Dyspnea TECHNIQUE: Imaging protocol: Radiologic exam of the chest. Views: 1 view. COMPARISON: CR XR chest 1V portable [id number] 12/31/2021 2:03 PM FINDINGS: Tubes, catheters and devices: Right side PICC line extends into the SVC. Lungs: Right upper lobe interstitial congestion. No consolidation. Right upper lobe mass seen on CT examination is not well visualized. Low right lung volume. Hyperexpansion of the left lung. The left lung is clear Pleural spaces: Unremarkable. No pleural effusion. No pneumothorax. Heart/Mediastinum: Right perihilar mass lesion stable since prior No cardiomegaly. Bones/joints: Unremarkable. XR/XR chest 1V portable [id number] IMPRESSION: 1. Stable right perihilar mass 2. Interstitial congestion right perihilar and upper lobe 3. Right upper lobe mass seen on CT is not visible 4. Right side PICC in the SVC 5. Hyperexpanded left hemithorax
[2022-01-08] MEDS: sodium chloride 0.9% 1,000 ML 999 ML IV ×2 (11:07→12:40)
[2022-01-08 11:11] LABS: Basophils # 0.1 10^3/uL (0.0-0.1); Basophils % 0.5 %; Eosinophils # 0.2 10^3/uL (0.0-0.8); Eosinophils % 1.4 %; Hematocrit 26.8 % (37.0-47.0); Hemoglobin 8.4 g/dL (11.5-15.3); Lymphocytes % 13.2 %; Mean Corpuscular HGB Conc 31.3 g/dL (30.0-36.0); Mean Corpuscular Hemoglobin 29.4 pg (28.0-34.0); Mean Corpuscular Volume 93.7 fl (81-99); Mean Platelet Volume 10.3 fL (7.4-10.4); Monocytes # 1.4 10^3/uL (0.2-0.9); Monocytes % 9.2 %; Neutrophils # 10.83 10^3/uL (1.8-7.7); Neutrophils % 73.3 %; Nucleated Red Blood Cells % 0 %; Platelet Count 481 10^3/cmm (130-400); Red Blood Count 2.86 10^6/uL (4.1-5.3); Red Cell Distribution Width 17.3 % (12.1-15.1); White Blood Count 14.8 10^3/uL (4.0-10.0)
[2022-01-08 11:31] LABS: ABG PCO2 38.6 mmHg (35-45); ABG PH Result 7.42 (7.35-7.45); Alveolar-Arterial Oxygen Gradi 8.3 mmHg (5-10); Arterial Blood Gas Hematocrit 27.3 % (37-47); Base Excess ABG 0.8 mmol/L (-2.0-2.0); Blood Gas Allen Test Pos; Blood Gas Operator Identificat AMH; Blood Gas Sample Site Radial, left; Blood Gas Sample Type Arterial; Carboxyhemoglobin 1.5 %THgb (0.4-20.1); HCO3 ABG 25.2 mmol/L (22-26); HGB O2 Sat 97.9 % (95-100); Ionized Calcium Level - ABG 1.3 mmol/L (1.1-1.4); Methemoglobin 0.1 % (0.4-1.5); Oxygen Device NC; Oxygen Saturation ABG 99.5; Potassium Level - ABG 3.9 mmol/L (3.5-5.0); Total Hemoglobin 8.9 g/dL (12-16)
[2022-01-08 11:32] LABS: Alanine Aminotransferase 16 U/L (0-33); Albumin Level 2.7 g/dL (3.5-5.2); Alkaline Phosphatase 61 U/L (35-105); Anion Gap 14.5 (5-19); Aspartate Amino Transferase 18 U/L (0-32); Blood Urea Nitrogen 15 mg/dL (8-23); Calcium 9.8 mg/dL (8.5-10.5); Carbon Dioxide 25 mmol/L (22-29); Chloride 96 mmol/L (98-107); Creatinine Clr Calc Pharmacy 54.9185; Globulin 3.8 g/dL (1.3-4.6); Glomerular Filtration Rate 62.5 mL/min (90-130); Glucose 125 mg/dL (65-115); Osmolality Calculated 274 mOsm/kg (285-295); Potassium 4.5 mmol/L (3.5-5.1); Sodium 131 mmol/L (136-145); Total Bilirubin 0.4 mg/dL (0.15-1.2); Total Protein 6.5 g/dL (6.6-8.7)
--- NOTE | 2022-01-08 12:04 | ECG_ITS ---
[facility] Test Date: 2022-01-08 Pat Name: Atiya Newsome Department: Room: Gender: Female Software Publisher: : 1955 Requested By: Rober Joiner Order Number: [id number] Dina MD: Lisa Velasco M.D. Measurements Intervals [place] Rate: 68 P: 77 NC: 155 QRS: 63 QRSD: 78 T: 80 QT: 398 QTc: 425 Interpretive Statements SINUS RHYTHM Compared to ECG 12/30/2021 17:56:21 No significant changes Electronically Signed On 01-09-2022 12:56:10 CDT by Lisa Velasco M.D. [id number]
--- NOTE | 2022-01-08 13:37 | PM.HP ---
Providers/Chief Complaint Admitting Physician: Gunnar Berkowitz MD Primary Care Provider: Galen Felipe Chief Complaint: Low BP, Sent by sallyius History of Present Illness Atiya Newsome is a 66 year old female referred from a surgery visit to the emergency department secondary to diminished p.o. intake lately, significantly low blood pressure, and generalized weakness. She reports she really has not felt like eating lately, that everything she smells seems bad. She is able to keep down water. No vomiting. She states she is short of breath frequently. Occasional cough but not usually productive. No diarrhea, blood in stool. Has had a recent diagnosis of squamous cell carcinoma of the lung, but chemotherapy has not yet been set up. She was also to have an EGD secondary to some issues with p.o. intake, and a port placed. Review of Systems General: Reports: 10 or more systems reviewed and unremarkable except in HPI and below Const: Reports: fatigue and malaise; Denies: fever(s) or chills Eyes: Denies: change in vision ENMT: Denies: throat pain Card: Reports: chest pain (Reports chronic chest pain secondary to cancer) GI: Reports: nausea; Denies: abdominal pain or vomiting : Denies: flank pain Musc: Denies: neck pain Skin/Breast: Denies: rash Neuro: Denies: headache(s) Psych: Reports: anxiety and depression Endo: Denies: polyuria Maciel/Lymph: Denies: easy bruising All/Imm: Denies: urticaria Medications/Allergies Home Medications Medication Instructions Recorded Confirmed Last Taken Type alprazolam 1 mg tablet 1 mg PO QPM 03/13/20 01/08/22 01/07/22 History carvedilol 6.25 mg tablet 6.25 mg PO BID #60 tabs 03/11/21 01/08/22 01/08/22 Rx lovastatin 40 mg tablet 40 mg PO DAILY #30 tabs 03/11/21 01/08/22 01/07/22 Rx albuterol sulfate 90 mcg/actuation 2 puff inhalation Q6H PRN 12/18/21 01/08/22 12/28/21 Rx aerosol inhaler shortness of breath or wheezing #8.5 grams fluticasone fur. 100 mcg-umeclid 1 inh inhalation DAILY #60 ea 0901/08/22 01/08/22 Rx 62.5 mcg-vilant 25 mcg inhalat.powder (Trelegy Ellipta) food supplemt, lactose-reduced 1 ea PO TID 12/30/21 01/08/22 01/08/22 History (Ensure oral liquid) fluconazole 100 mg tablet 100 mg PO DAILY 14 days #14 tabs 01/01/22 01/08/22 01/08/22 Rx lisinopril 20 mg tablet 10 mg PO DAILY #10 tabs 01/01/22 01/08/22 01/08/22 Rx oxycodone 10 mg tablet 10 mg PO Q6H PRN pain #20 tabs 01/01/22 01/08/22 Unknown Rx sennosides 8.6 mg-docusate sodium 1 tab-cap PO DAILY #20 tabs 01/01/22 01/08/22 01/08/22 Rx 50 mg tablet (Senna-S) omeprazole 20 mg tablet,delayed 20 mg PO DAILY PRN Heartburn 01/08/22 01/08/22 Unknown History release Allergies Allergy/AdvReac Type Severity Reaction Status Date / Time Penicillins Allergy Unknown Verified 01/08/22 10:06 poison yeny extract Allergy ALGY-Rash Verified 01/08/22 10:06 poison oak extract Allergy ALGY-Rash Verified 01/08/22 10:06 PFSH Acute PFSH: Medical History (Updated 01/08/22 @ 13:48 by Gunnar Berkowitz MD) Anemia Anxiety and depression CAD (coronary artery disease) COPD (chronic obstructive pulmonary disease) Emphysema of lung GERD (gastroesophageal reflux disease) History of ST elevation myocardial infarction (STEMI) HTN (hypertension) Hyperlipidemia Lung mass 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 Peripheral arterial disease Pneumonia Port-A-Cath in place She will get a PICC line PVD (peripheral vascular disease) Stress-induced cardiomyopathy Surgical History (Updated 01/08/22 @ 13:41 by Gunnar Berkowitz MD) S/P peripheral artery angioplasty with stent placement S/P PTCA (percutaneous transluminal coronary angioplasty) Family History Mother Cancer Father Cancer Hypertension Brother Myocardial infarction CAD (coronary artery disease) Denies family history of Diabetes Clotting disorder Dementia Hyperlipidemia Psychiatric illness Chronic kidney disease (CKD) Suicide Anesthesia complication Bleeding disorder Lung disease Stroke Social History Smoking and tobacco status: former smoker Alcohol intake: never Vitals/I&O/Wt Last Vital Signs Temp 97.7 F 01/08/22 10:41 Pulse 66 01/08/22 12:41 Resp 18 01/08/22 12:41 BP 96/63 01/08/22 12:41 Pulse Ox 97 01/08/22 12:41 O2 Del Method 01/08/22 12:41 O2 Flow Rate 2 01/08/22 12:41 01/07/22 01/08/22 01/08/22 22:59 06:59 14:59 Intake Total 1000 / 1000 Balance 1000 / 1000 Weight last 48 hrs Weight 54.431 kg Physical Exam Narrative: General exam is a tired appearing female, in no distress, on 2 L of oxygen HEENT: Atraumatic normocephalic. Pupils equally round. Oropharynx with coated tongue Neck is supple no lymphadenopathy thyromegaly Cardiovascular regular rate and rhythm without murmur Lungs diminished breath sounds bilaterally. No wheezes or crackles Abdomen is soft nontender positive bowel sounds. No obvious organomegaly exams deferred Extremities no cyanosis clubbing or edema, cap refill brisk Skin no rash Neuro no obvious focal deficits. Data : 01/08/22 11:05 01/08/22 11:05 Other Labs: ABG demonstrated a pH of 7.42, PCO2 39, PO2 of 114 LFTs are normal Albumin 2.7 Chest x-ray demonstrates interstitial infiltrate right upper lobe, PICC line noted A&P Assessment and plan (1) Hypotension: Patient significantly hypotensive on arrival, with systolic blood pressure less than 70 in the physician clinic. This is most likely secondary to poor oral intake, antihypertensives, dehydration. Hold blood pressure medication Rehydrate Doubt sepsis, but will check blood cultures considering infiltrate on chest x-ray. (2) Acute dehydration: Hydrate (3) Non-small cell cancer of right lung: Oncology consultation. They may wish to initiate chemotherapy here in house. (4) Failure to thrive: Patient with significant failure to thrive. This is likely secondary to her underlying malignancy. Check TSH (5) Pneumonia: Patient with infiltrate on x-ray consistent with postobstructive pneumonia. White blood cell count is elevated. Initiate Levaquin. I am not for sure if this is an acute problem and this may not need to interrupt initiation of chemotherapy depending on clinical progression. (6) Anemia: Anemia panel, fecal Hemoccult (7) Hyponatremia: Secondary to malignancy, monitor Check TSH and cortisol level Repeat tomorrow Plan COPD. DuoNeb as needed, budesonide scheduled Multiple other medical problems as outlined in past medical history Full code SCDs for DVT prophylaxis considering anemia. Nystatin prophylactically Attestations Medical Necessity Statement*: Will need greater than 2 midnight stay for evaluation and treatment of failure to thrive, squamous cell carcinoma with likely need to initiate chemotherapy, hypotension Coding Level of Care Code Acute Account Development Representative for Vishnu Reyes Diagnoses Hypotension I95.9 Acute dehydration E86.0 Non-small cell cancer of right lung C34.91 Failure to thrive Pneumonia J18.9 Anemia D64.9 Hyponatremia E87.1
--- NOTE | 2022-01-08 14:00 | PC.NURSE ---
To Unit Pt brought to unit via gurney by ER staff. Pt on 2 litres NC satting in the high 90's. Pt is alert and oriented. Denies pain right now, has admitted to pain deep in her chest over the last several weeks. Pt has PICC line from previous admission to right arm. Pt has been oriented to room with call light in reach.
[2022-01-08 14:24] LABS: Thyroid Stimulating Hormone 3.84 uIU/mL (0.27-4.20)
[2022-01-08 15:08] LABS: Ferritin 493 ng/mL (15-150); Iron 15 ug/dL (37-145); Percent Saturation 11.2 % (20-50); Total Iron Binding Capacity 133 mcg/dl; Unsaturated Iron Binding 118 ug/dL (112-347)
[2022-01-08] MEDS: sodium chloride 0.9% 1,000 ML 75 ML IV (15:15)
[2022-01-08] MEDS: levofloxacin-dextrose 5 % 750 MG/150 ML PREMIX 100 MG IV (15:16)
[2022-01-08] MEDS: iron sucrose 200 MG in sodium chloride 0.9% (100 ml) 100 ML 220 MG IV (16:40)
[2022-01-08] MEDS: nystatin 100,000 unit/mL UDC 5 mL 500000 UNIT PO ×2 (16:43→20:26)
[2022-01-08] MEDS: pantoprazole DR 40 mg Tablet PO (17:03)
[2022-01-08] MEDS: docusate sodium 10 mg/mL (5ml) Liq 100 MG PO (17:04)
--- NOTE | 2022-01-08 17:54 | PM.CONSULT ---
Providers/Reason For Consult Consulting Physician/Specialty*: Medical oncology Reason for Consult*: Non-small cell lung cancer Requesting Physician: Gunnar Berkowitz MD Attending Physician: Gunnar Berkowitz MD Primary Care Provider: Galen Leslieno History of Present Illness History of Present Illness This is a 66 year-old woman with invasive non-small cell carcinoma involving the middle lobe of the right lung, by clinical evaluation stage at least IIIA (T4, N1, M0). She had been referred to Dr. Lovelace after she had been found to have a right lung nodule by chest x-ray.? Her chest CT on 11/11/2021 showed a 3.8 cm irregular complex masslike lesion within the anterior segment of the right upper lobe.? It was noted to have spiculated margins which were partially contacting the pleural surface.? A much larger complex parenchymal consolidation high within the superior segment of the right lower lobe was noted to be contacting the interlobar pleural fissure.? It showed several areas of cavitary change.? The lesion was noted to be contiguous with the right parahilar peribronchovascular soft tissue thickening.? There was additional right hilar lymphadenopathy and an irregular 2 cm masslike lesion was noted within the medial basal segment of the right lung. PET/CT on 11/18/2021 showed FDG avid right upper lobe nodule with SUV 21.20.? Right lower lobe consolidation extending from the posterior lateral pleura to the right hilum showed increased metabolic activity with SUV 17.81.? The right lower lobe anteromedial nodular density with SUV 10.18.? There were no left lung lesions identified.? A 6.8 mm precarinal lymph node had SUV 5.93 and a subcarinal lymph node and a maximum SUV of 5.88.? Overall, the findings were consistent with synchronous primary tumors with associated lymphangitic spread versus postobstructive infection in the right lower lobe superior segment along with right hilar and mediastinal lymph node involvement.? Activity in the right psoas was consistent with inflammatory or neoplastic involvement. She underwent bronchoscopy/EBUS on 11/26/2021.? She was noted to have near complete occlusion of the right bronchus intermedius due to an endobronchial lesion.? The EBUS showed mediastinal and hilar lymphadenopathy.? The procedure included FNA biopsies from stations 7 and 10R lymph nodes.? Pathology on the right bronchus intermedius biopsies showed invasive non-small cell carcinoma.? IHC studies were consistent with squamous cell carcinoma.? The station 7 FNA biopsy was negative for malignancy.? The station 10R FNA biopsy showed metastatic non-small cell carcinoma. I had seen here initially as an outpatient on 12/04/2021. With her disease appearing to be localized to lung and mediastinal lymph nodes, she was recommended to proceed with chemoradiation following completion of staging head MRI and placement of Port-A-Cath venous access device. The MRI was completed on 12/12/2021 and it showed no evidence of metastatic disease. She was seen by Dr. Peguero for Port-A-Cath placement on 12/25/2021. The procedure was planned for 12/30/2021, but it had to be deferred, as by that time she had developed multiple new complaints and her condition had declined significantly. Her chest CT showed partial collapse of the right lower lobe which was new from the prior study and there was evidence for new low-attenuation fluid or necrotic tumor about the right hilum extending along the collapsed right lower lobe and right fissure. There was associated peripheral enhancement suspicious for empyema. She was advised to consider transfer to another facility to undergo endobronchial stent placement, but she declined. As such, she was discharged home, but she returned to the emergency room today with severe weakness and with ongoing difficulty swallowing and eating. In the emergency room she was hypotensive with systolic blood pressure below 80. She is very weak now, and she has virtually no activity. Her ECOG score is 3. She has poor appetite and poor oral intake, though at this point she says her chest is not hurting as much and she does not really report having difficulty swallowing. She has not had fever or night sweats. She does have cough, and she has shortness of breath. She does not complain of nausea. Her acid reflux symptoms have improved with medication. Bowel and bladder function have remained adequate. She seems to have fairly generalized bone pain or at least bone sensitivity. She reports having exploding headaches, which is something new. She has no focal neurologic symptoms. Review of Systems Narrative: As above. Medications/Allergies Home Medications Medication Instructions Recorded Confirmed Last Taken Type alprazolam 1 mg tablet 1 mg PO QPM 03/13/20 01/08/22 01/07/22 History carvedilol 6.25 mg tablet 6.25 mg PO BID #60 tabs 03/11/21 01/08/22 01/08/22 Rx lovastatin 40 mg tablet 40 mg PO DAILY #30 tabs 03/11/21 01/08/22 01/07/22 Rx albuterol sulfate 90 mcg/actuation 2 puff inhalation Q6H PRN 12/18/21 01/08/22 12/28/21 Rx aerosol inhaler shortness of breath or wheezing #8.5 grams fluticasone fur. 100 mcg-umeclid 1 inh inhalation DAILY #60 ea 12/18/21 01/08/22 01/08/22 Rx 62.5 mcg-vilant 25 mcg inhalat.powder (Trelegy Ellipta) food supplemt, lactose-reduced 1 ea PO TID 12/30/21 01/08/22 01/08/22 History (Ensure oral liquid) fluconazole 100 mg tablet 100 mg PO DAILY 14 days #14 tabs 01/01/22 01/08/22 01/08/22 Rx lisinopril 20 mg tablet 10 mg PO DAILY #10 tabs 01/01/22 01/08/22 01/08/22 Rx oxycodone 10 mg tablet 10 mg PO Q6H PRN pain #20 tabs 01/01/22 01/08/22 Unknown Rx sennosides 8.6 mg-docusate sodium 1 tab-cap PO DAILY #20 tabs 01/01/22 01/08/22 01/08/22 Rx 50 mg tablet (Senna-S) omeprazole 20 mg tablet,delayed 20 mg PO DAILY PRN Heartburn 01/08/22 01/08/22 Unknown History release Allergies Allergy/AdvReac Type Severity Reaction Status Date / Time Penicillins Allergy Unknown Verified 01/08/22 10:06 poison yeny extract Allergy ALGY-Rash Verified 01/08/22 10:06 poison oak extract Allergy ALGY-Rash Verified 01/08/22 10:06 Current Medications Generic Name Dose Route Start Last Admin Trade Name Freq PRN Reason Stop Dose Admin Docusate Sodium 100 mg 01/08/22 18:00 01/08/22 17:04 Docusate Sodium 10 Mg/Ml (5ml) Liq PO 100 mg BID JOSE LUIS Administration Levofloxacin/Dextrose 750 mg in 150 mls @ 100 mls/hr 01/08/22 13:45 01/08/22 15:16 Levaquin-D5w IV 100 mls/hr Q24H JOSE LUIS Administration Protocol Sodium Chloride 1,000 mls @ 75 mls/hr 01/08/22 14:00 01/08/22 15:15 Sodium Chloride 0.9% IV 75 mls/hr .[id number] JOSE LUIS Administration Nystatin 500,000 unit 01/08/22 17:00 01/08/22 16:43 Nystatin 100,000 Unit/Ml Udc 5 Ml PO 500,000 unit QID JOSE LUIS Administration Pantoprazole Sodium 40 mg 01/08/22 18:00 01/08/22 17:[address] 40 Mg Tablet PO 40 mg BID JOSE LUIS Administration PFSH Acute PFSH: Medical History (Updated 01/08/22 @ 13:48 by Gunnar Berkowitz MD) Anemia Anxiety and depression CAD (coronary artery disease) COPD (chronic obstructive pulmonary disease) Emphysema of lung GERD (gastroesophageal reflux disease) History of ST elevation myocardial infarction (STEMI) HTN (hypertension) Hyperlipidemia Lung mass 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 Peripheral arterial disease Pneumonia Port-A-Cath in place She will get a PICC line PVD (peripheral vascular disease) Stress-induced cardiomyopathy Surgical History (Updated 01/08/22 @ 13:41 by Gunnar Berkowitz MD) S/P peripheral artery angioplasty with stent placement S/P PTCA (percutaneous transluminal coronary angioplasty) Family History Mother Cancer Father Cancer Hypertension Brother Myocardial infarction CAD (coronary artery disease) Denies family history of Diabetes Clotting disorder Dementia Hyperlipidemia Psychiatric illness Chronic kidney disease (CKD) Suicide Anesthesia complication Bleeding disorder Lung disease Stroke Social History Smoking and tobacco status: former smoker Alcohol intake: never Vitals/I&O/Wt Last Vital Signs Temp 97.7 F 01/08/22 10:41 Pulse 65 01/08/22 16:34 Resp 17 01/08/22 16:34 BP 96/58 01/08/22 14:25 Pulse Ox 100 01/08/22 16:34 O2 Del Method 01/08/22 16:34 O2 Flow Rate 2 01/08/22 12:41 01/08/22 01/08/22 01/08/22 06:59 14:59 22:59 Intake Total 1000 / 1000 250 / 1250 Balance 1000 / 1000 250 / 1250 Weight last 48 hrs Weight 54.431 kg Physical Exam Narrative: Constitutional:?She appears very weak generally weak, but she does not appear acutely distressed. Eyes: Sclerae nonicteric. Conjunctivae clear. ENMT: There is a whitish coating on the tongue. There are no other lesions noted in the oral cavity. Hematologic/Lymphatic: No cervical, clavicular, or axillary adenopathy. Respiratory: Lungs show markedly diminished air movement bilaterally. Cardiovascular: Heart rhythm is regular. There is no murmur, gallop, or rub noted. Abdomen: Soft and non-tender. Liver and spleen are not enlarged. There is no abdominal mass or ascites noted and there is no inguinal adenopathy. Extremities: No edema. Neurologic: No focal neurologic deficits noted. Data : 01/08/22 11:05 01/08/22 11:05 Micro: Microbiology 01/08/22 14:08 Blood Culture - Preliminary Blood SPECIMEN COLLECTED 01/08/22 14:05 Blood Culture - Preliminary Blood SPECIMEN COLLECTED A&P Assessment and plan (1) Non-small cell cancer of right lung: Patient with invasive squamous cell carcinoma involving the middle lobe of the right lung.? By PET/CT there was an additional FDG avid nodule in the right upper lobe and there was suspected mediastinal lymph node involvement.? There was confirmed hilar node involvement by bronchoscopy/EBUS, but the station 7 FNA biopsy showed no malignancy.? As such, her disease was stage at least IIIA (T4, N1, M0). With those findings, she was recommended to proceed with standard chemoradiation pending completion of staging with head MRI and placement of Port-A-Cath venous access device. She was scheduled for the Port-A-Cath placement on 12/30/2021. By that time she had developed multiple new complaints, and there was a significant decline in her general condition. Her repeat chest CT showed collapse of the right lower lobe. She is now readmitted to the hospital due to weakness, inadequate nutritional intake, and general decline. She has begun supportive therapy with IV fluids and IV antibiotic coverage. We are anticipating that she will undergo EGD for evaluation of her esophageal symptoms. If her general condition improves, she will be given the option to begin treatment with carboplatin/Taxol as induction chemotherapy, and that can be followed up with chemoradiation if she is showing clinical improvement. Overall, though, the prognosis at this point appears poor. Consult Attestations Medical Necessity Statement: Not applicable. Coding Level of Care Code Acute Documentation Designer for Anthonymala Reyes Diagnoses Non-small cell cancer of right lung C34.91
[2022-01-08] MEDS: ALPRAZolam 0.5 mg Tablet 1 MG PO (20:26)
[2022-01-08] MEDS: budesonide 0.5 mg/2 mL Neb INHALATION (20:40)
[2022-01-08] MEDS: ipratropium-albuterol 3 mL Neb INHALATION (20:40)
--- NOTE | 2022-01-08 22:15 | PC.NURSE ---
Transfer Note Patient transferred to med-surg room 251-1 from ICU via bed. Handoff report given to NADIA Mcduffie. Patient oriented to environment and equipment. Covering service notified. Orders reviewed and will continue to monitor. Patient alert & oriented x4 at time of transfer on room air. All belongings transferred with patient to floor and placed at bedside. No wounds/skin issues noted at time of transfer.
[2022-01-08 22:44] LABS: Urine Appearance SL Hazy (CLEAR); Urine Color Yellow (Yellow)
[2022-01-08 22:45] LABS: Bilirubin Urine 1+ (Negative); Blood Urine 2+ (Negative); Glucose Urine UA Norm (Normal); Ketones Urine 1+ (Negative); Leukocyte Esterase Urine Trace (Negative); Nitrate Urine Negative (Negative); Protein Urine Trace (Negative); Specific Gravity, Urine 1.015 (1.005-1.030); Urobilinogen Urine Norm (Negative); pH Urine 5 (5-7)
[2022-01-08 22:46] LABS: Add Urine Culture? No; Bacteria Urine TRACE /hpf; Hyaline Casts Urine 0-4 /lpf; Renal Epithelial Cells Urine 0-2 /hpf; WBC Urine 0-4 /hpf (0-5)
[2022-01-09 04:00] VITALS: BP 136/69; PULSE 90; RESP 18; TEMP 37.3; O2SAT 90
[2022-01-09 05:03] LABS: Basophils % 0.4 %; Eosinophils # 0.2 10^3/uL (0.0-0.8); Eosinophils % 1.6 %; Hematocrit 24.5 % (37.0-47.0); Hemoglobin 7.7 g/dL (11.5-15.3); Lymphocytes % 9.8 %; Mean Corpuscular HGB Conc 31.4 g/dL (30.0-36.0); Mean Corpuscular Hemoglobin 29.5 pg (28.0-34.0); Mean Corpuscular Volume 93.9 fl (81-99); Mean Platelet Volume 10.5 fL (7.4-10.4); Monocytes # 0.8 10^3/uL (0.2-0.9); Monocytes % 7.8 %; Neutrophils # 7.86 10^3/uL (1.8-7.7); Neutrophils % 78.6 %; Nucleated Red Blood Cells % 0 %; Platelet Count 389 10^3/cmm (130-400); Red Blood Count 2.61 10^6/uL (4.1-5.3); Red Cell Distribution Width 17.4 % (12.1-15.1)
[2022-01-09 05:27] LABS: Alanine Aminotransferase 12 U/L (0-33); Albumin Level 2.2 g/dL (3.5-5.2); Alkaline Phosphatase 49 U/L (35-105); Anion Gap 14.9 (5-19); Aspartate Amino Transferase 14 U/L (0-32); Blood Urea Nitrogen 11 mg/dL (8-23); Calcium 8.9 mg/dL (8.5-10.5); Carbon Dioxide 21 mmol/L (22-29); Chloride 104 mmol/L (98-107); Globulin 3.3 g/dL (1.3-4.6); Glomerular Filtration Rate 99.7 mL/min (90-130); Glucose 86 mg/dL (65-115); Osmolality Calculated 281 mOsm/kg (285-295); Potassium 3.9 mmol/L (3.5-5.1); Sodium 136 mmol/L (136-145); Total Bilirubin 0.2 mg/dL (0.15-1.2); Total Protein 5.5 g/dL (6.6-8.7)
[2022-01-09] MEDS: sodium chloride 0.9% 1,000 ML 75 ML IV ×2 (05:44→20:59)
[2022-01-09 07:08] VITALS: BP 129/68; PULSE 94; RESP 18; TEMP 37.2; O2SAT 92
[2022-01-09] MEDS: atorvastatin 40 mg Tablet 20 MG PO (08:43)
[2022-01-09] MEDS: docusate sodium 10 mg/mL (5ml) Liq 100 MG PO (08:43)
[2022-01-09] MEDS: nystatin 100,000 unit/mL UDC 5 mL 500000 UNIT PO ×3 (08:43→21:00)
[2022-01-09] MEDS: pantoprazole DR 40 mg Tablet PO ×2 (08:43→17:24)
--- NOTE | 2022-01-09 09:26 | P.PN_ITS ---
Subjective Subjective: Atiya reports she feels down this morning. She is worried about her tumor, and the fact that she has not started chemotherapy. She reports just the thought of food makes her nauseous, and she is not interested. She has not had any vomiting. She is able to drink fluids. Medications: Reviewed: Yes Vitals/I&O/Wt Last Vital Signs Temp 98.9 F 01/09/22 07:08 Pulse 94 01/09/22 07:08 Resp 18 01/09/22 07:08 BP 129/68 01/09/22 07:08 Pulse Ox 92 01/09/22 07:08 O2 Del Method 01/09/22 07:08 O2 Flow Rate 2 01/08/22 12:41 01/08/22 01/09/22 01/09/22 22:59 06:59 14:59 Intake Total 610 / 2610 1180 / 3790 Balance 610 / 2610 1180 / 3790 Weight last 48 hrs Weight 65.045 kg Weight 54.431 kg Physical Exam Narrative: General exam no distress, somewhat depressed, blood pressure not low currently. Neck is supple no lymphadenopathy thyromegaly Cardiovascular regular rate and rhythm without murmur Lungs diminished breath sounds bilaterally. No wheezes or crackles Abdomen is soft nontender positive bowel sounds. No obvious organomegaly Extremities no cyanosis clubbing or edema, cap refill brisk Skin no rash Data : 01/09/22 04:45 01/09/22 04:45 Micro: Microbiology 01/08/22 14:08 Blood Culture - Preliminary Blood SPECIMEN COLLECTED 01/08/22 14:05 Blood Culture - Preliminary Blood SPECIMEN COLLECTED A&P Assessment and plan (1) Hypotension: Patient significantly hypotensive on arrival, with systolic blood pressure less than 70 in the physician clinic. This is most likely secondary to poor oral intake, antihypertensives, dehydration. With holding blood pressure medicine, rehydration blood pressure has normalized. Reduce fluids to TKO Doubt sepsis, but will check blood cultures obtained. No growth currently. (2) Acute dehydration: Resolved, decrease fluids (3) Non-small cell cancer of right lung: Oncology consultation appreciated. They may wish to initiate chemotherapy here in house. From my understanding this will be initiated today. (4) Failure to thrive: Patient with significant failure to thrive. This is likely secondary to her underlying malignancy. TSH and cortisol checked and normal (5) Pneumonia: Patient with infiltrate on x-ray consistent with postobstructive pneumonia. White blood cell count is elevated. Levaquin was initiated. I am not for sure if this is an acute problem and this may not need to interrupt initiation of chemotherapy depending on clinical progression. (6) Anemia: Anemia panel suggests iron deficiency. Iron sucrose given yesterday, repeat dose today. Await fecal Hemoccult No evidence of acute blood loss currently Hemoglobin has decreased but likely secondary to hydration (7) Hyponatremia: Resolved with fluid administration TSH and cortisol level were normal Continue to follow (8) Dysphagia: EGD planned for tomorrow Plan COPD. DuoNeb as needed, budesonide scheduled Depression. Initiate Zoloft. Multiple other medical problems as outlined in past medical history Full code SCDs for DVT prophylaxis considering anemia. Nystatin prophylactically Attestations Medical Necessity Statement*: Needs continued hospitalization for IV antibiotics secondary postobstructive pneumonia, evaluation of dysphagia with EGD as dehydration likely to recur if she is not taking adequate p.o., and consideration of initiation of chemotherapy. Coding Level of Care Code Acute Telegraph Mechanic for Chg Fwd Diagnoses Hypotension I95.9 Acute dehydration E86.0 Non-small cell cancer of right lung C34.91 Failure to thrive Pneumonia J18.9 Anemia D64.9 Hyponatremia E87.1 Dysphagia R13.10
--- NOTE | 2022-01-09 10:21 | PC.CHAP ---
Pastoral Care Encounter/Spiritual Assessment Type of Contact [] Declined weights and measures inspector visit [] Patient/Family/Request visit [] Outpatient visit [] Follow-up visit [] Physician referral [] Code/Alert [x] Routine visit [] Staff referral [] Actively dying [] Patient sleeping [] Family support [] [] Out of room [] Palliative care [x] [] Receiving care in room [] Pre-surgical visit [] Trauma [] Long length of stay [] ICU visit [] Other: Relational/Emotional Strength [x] Patient feels connected with others/family/visitors/staff [] Distress [] Loneliness/isolation [] Abandonment Spirituality of Patient [x] Person of Sakshi [] Attends Faith of their Sakshi [x] Believes in Prayer [] Reads Bible or Mu-Ism materials [] There are Spiritual issues to be addressed Panel Sewer Interventions [x] Prayer [x] Active listening [x] Non-anxious presence [x] Spiritual/emotional support [] Crisis/trauma care [x] Spiritual counseling [] Bereavement support [] Provided bereavement packet [] Provided Bible/devotional materials [] Provided toy/stuffed animal, coloring book to patient or family member [] Provided Communion [] Anointing/[place] [] Salvation [x] Completed spiritual assessment [] Other: Impact on Illness or Injury [] Angry [] Fearful [] Anxious [] Often cries [] Exhaustion [] Unable to work [] Unable to attend christianity [] Unable to walk/stand [] Unable to read [] Unable to drive [] Unable to eat/drink [] Unable to sleep [] Unable to be with family [] Patient intubated [] Other: Summary SOB unable to communicate what needs to be done witing on doctgors report has a good attiyude well go home 1+ Time spent with patient 10 mins
[2022-01-09] MEDS: sertraline 50 mg Tablet 25 MG PO (10:25)
[2022-01-09] MEDS: dexamethasone 4 mg Tablet 20 MG PO (10:25)
[2022-01-09 11:31] VITALS: BP 128/69; PULSE 80; RESP 16; TEMP 36.7; O2SAT 92
[2022-01-09] MEDS: sodium chloride 0.9% 250 ML 75 ML IV (13:08)
[2022-01-09] MEDS: diphenhydrAMINE 50 mg/mL SDV 1mL 25 MG IVP (13:11)
[2022-01-09] MEDS: famotidine 20 mg/2 mL INJ IVP (13:12)
[2022-01-09] MEDS: OLANZapine 5 mg TABLET PO (13:12)
[2022-01-09] MEDS: palonosetron 0.25 mg/5 mL SDV IVP (13:12)
[2022-01-09] MEDS: fosaprepitant 150 MG in sodium chloride 0.9% 150 ML 300 MG IV (13:13)
--- NOTE | 2022-01-09 14:13 | PC.NURSE ---
Ash rescheduled due to patient receiving chemotherapy at this time.
[2022-01-09] MEDS: CARBOplatin 530 MG in sodium chloride 0.9% 500 ML 553 MG IV (16:36)
[2022-01-09] MEDS: levofloxacin-dextrose 5 % 750 MG/150 ML PREMIX 100 MG IV (17:22)
[2022-01-10] VITALS (13 sets, daily range): BP systolic 110–157; BP diastolic 68–91; PULSE 84–104; RESP 12–18; TEMP 36.2–36.7; O2SAT 90–97
[2022-01-10 05:34] LABS: Basophils % 0.2 %; Hemoglobin 8.1 g/dL (11.5-15.3); Lymphocytes # 0.7 10^3/uL (0.8-4.8); Lymphocytes % 7.7 %; Mean Corpuscular HGB Conc 31.2 g/dL (30.0-36.0); Mean Corpuscular Hemoglobin 28.9 pg (28.0-34.0); Mean Corpuscular Volume 92.9 fl (81-99); Mean Platelet Volume 10.8 fL (7.4-10.4); Monocytes # 0.1 10^3/uL (0.2-0.9); Neutrophils # 8.35 10^3/uL (1.8-7.7); Neutrophils % 88.5 %; Nucleated Red Blood Cells % 0 %; Platelet Count 447 10^3/cmm (130-400); Red Cell Distribution Width 17.2 % (12.1-15.1); White Blood Count 9.4 10^3/uL (4.0-10.0)
[2022-01-10 05:52] LABS: Alanine Aminotransferase 11 U/L (0-33); Albumin Level 2.2 g/dL (3.5-5.2); Alkaline Phosphatase 50 U/L (35-105); Anion Gap 15.9 (5-19); Aspartate Amino Transferase 14 U/L (0-32); Blood Urea Nitrogen 14 mg/dL (8-23); Calcium 8.8 mg/dL (8.5-10.5); Carbon Dioxide 20 mmol/L (22-29); Chloride 108 mmol/L (98-107); Globulin 3.6 g/dL (1.3-4.6); Glomerular Filtration Rate 159.2 mL/min (90-130); Glucose 133 mg/dL (65-115); Magnesium 1.8 mg/dL (1.7-2.3); Osmolality Calculated 292 mOsm/kg (285-295); Potassium 3.9 mmol/L (3.5-5.1); Sodium 140 mmol/L (136-145); Total Bilirubin 0.2 mg/dL (0.15-1.2); Total Protein 5.8 g/dL (6.6-8.7)
--- NOTE | 2022-01-10 08:36 | PM.PN ---
Subjective Subjective: Patient seen and evaluated today. Continues to be weak. Low H&H. Patient was seen and evaluated at my office recently and she had hypotensive and dehydrated so I decided to send her to the emergency department for admission to the hospitalist service, for further resuscitation and medical optimization. He was also seen evaluated by oncology service. Patient seems to be nauseated most of the time. She is supposed to be starting chemotherapy Medications: Reviewed: Yes Vitals/I&O/Wt Last Vital Signs Temp 97.5 F L 01/10/22 07:59 Pulse 90 01/10/22 07:59 Resp 17 01/10/22 07:59 BP 150/72 01/10/22 07:59 Pulse Ox 90 01/10/22 07:59 O2 Del Method 01/10/22 07:59 O2 Flow Rate 2 01/09/22 20:00 01/09/22 01/10/22 01/10/22 22:59 06:59 14:59 Intake Total 1761.3333 / 2271.3333 0 / 2271.3333 Output Total 400 / 400 Balance 1761.3333 / 2271.3333 -400 / 1871.3333 Weight last 48 hrs Weight 146 lb 3.2 oz Weight 143 lb 6.4 oz Weight 120 lb Physical Exam Narrative: Patient is conscious alert oriented X3 Disheveled and cachectic BMI 24 Head and neck examination PERRLA no masses no cervical lymphadenopathy no jaundice Abdomen nontender nondistended soft no organomegaly guarding or rigidity/no signs of peritonitis Data : 01/10/22 04:38 01/10/22 04:38 Micro: Microbiology 01/08/22 14:05 Blood Culture - Preliminary Blood NEGATIVE TO DATE 01/08/22 14:08 Blood Culture - Preliminary Blood NEGATIVE TO DATE A&P Assessment and plan (1) Dysphagia: Plan of care; After thorough history and physical examination and reviewing the chart, plan to perform a diagnostic esophagogastroduodenoscopy with possible biopsy in the GI lab. I discussed with the patient in detail the risk,benefits,alternatives and indications.The risk of aspiration, bleeding, soft tissue injury, perforation of the stomach/esophagus and other potential concomitant complications were explained to the patient in details,aslo the potential need for Thoracic and or Abdominal surgery to repair any complications.The patient understood this well and did agree to proceed. Rationale was carefully and clearly discussed with the patient.Appropriate informed consent have been reviewed and signed All questions have been answered and all concerns have been addressed to patient's satisfaction. Attestations Medical Necessity Statement*: Per admitting service Coding Level of Care Code Acute Photoengraving Supervisor for Chg Fwd Diagnoses Dysphagia R13.10
[2022-01-10] MEDS: iron sucrose 200 MG in sodium chloride 0.9% (100 ml) 100 ML 220 MG IV (09:27)
[2022-01-10] MEDS: nystatin 100,000 unit/mL UDC 5 mL 500000 UNIT PO ×3 (09:27→21:10)
--- NOTE | 2022-01-10 09:36 | P.PN_ITS ---
Subjective Subjective: Still doesn't feel like eating. No abdominal pain. Plan for EGD today. Had chemo yesterday with no complications. Medications: Reviewed: Yes Vitals/I&O/Wt Last Vital Signs Temp 97.5 F L 01/10/22 07:59 Pulse 90 01/10/22 07:59 Resp 17 01/10/22 07:59 BP 150/72 01/10/22 07:59 Pulse Ox 90 01/10/22 07:59 O2 Del Method 01/10/22 07:59 O2 Flow Rate 2 01/09/22 20:00 01/09/22 01/10/22 01/10/22 22:59 06:59 14:59 Intake Total 1761.3333 / 2271.3333 0 / 2271.3333 Output Total 400 / 400 Balance 1761.3333 / 2271.3333 -400 / 1871.3333 Weight last 48 hrs Weight 66.315 kg Weight 65.045 kg Weight 54.431 kg Physical Exam Narrative: General exam no distress, somewhat depressed, blood pressure not low currently. Neck is supple no lymphadenopathy thyromegaly Cardiovascular regular rate and rhythm without murmur Lungs diminished breath sounds bilaterally. No wheezes or crackles Abdomen is soft nontender positive bowel sounds. No obvious organomegaly Extremities no cyanosis clubbing or edema, cap refill brisk Skin no rash Data : 01/10/22 04:38 01/10/22 04:38 Micro: Microbiology 01/08/22 14:05 Blood Culture - Preliminary Blood NEGATIVE TO DATE 01/08/22 14:08 Blood Culture - Preliminary Blood NEGATIVE TO DATE A&P Assessment and plan (1) Hypotension: Patient significantly hypotensive on arrival, with systolic blood pressure less than 70 in the physician clinic. This is most likely secondary to poor oral intake, antihypertensives, dehydration. With holding blood pressure medicine, rehydration blood pressure has normalized. Fluids but can decrease to TKO after EGD and initiate oral hydration Doubt sepsis, but will check blood cultures obtained. No growth currently. (2) Acute dehydration: Resolved. (3) Non-small cell cancer of right lung: Oncology consultation appreciated. They may wish to initiate chemotherapy here in house. That was given yesterday, carboplatinum and Taxol. Next treatment will be 3 weeks. Will need CBC weekly as outpatient. (4) Failure to thrive: Patient with significant failure to thrive. This is likely secondary to her underlying malignancy. TSH and cortisol checked and normal (5) Pneumonia: Patient with infiltrate on x-ray consistent with postobstructive pneumonia. White blood cell count is elevated. Levaquin was initiated. Convert to p.o. on discharge. (6) Anemia: Anemia panel suggests iron deficiency. Iron sucrose 12, repeat today. Await fecal Hemoccult No evidence of acute blood loss currently Hemoglobin stable (7) Hyponatremia: Resolved with fluid administration TSH and cortisol level were normal Continue to follow (8) Dysphagia: EGD planned for today. If no evidence of obstruction, reinitiate diet. Consider appetite stimulant if no findings. Plan COPD. DuoNeb as needed, budesonide scheduled Depression. Zoloft initiated. Multiple other medical problems as outlined in past medical history Full code SCDs for DVT prophylaxis considering anemia. Nystatin prophylactically , Home physical therapy on discharge. Consult physical therapy here to make sure this is appropriate. She does complain of severe weakness. Attestations Medical Necessity Statement*: Is continued hospitalization for failure to thri ve, issues with p.o. intake awaiting EGD. Also initiation of chemotherapy occurred yesterday. Coding Level of Care Code Acute Automobile Salesman for g Fwd Diagnoses Hypotension I95.9 Acute dehydration E86.0 Non-small cell cancer of right lung C34.91 Failure to thrive Pneumonia J18.9 Anemia D64.9 Hyponatremia E87.1 Dysphagia R13.10
[2022-01-10] MEDS: budesonide 0.5 mg/2 mL Neb INHALATION ×2 (09:41→19:59)
[2022-01-10] MEDS: sodium chloride 0.9% 1,000 ML 30 ML IV (10:30)
--- NOTE | 2022-01-10 11:05 | ANES.PREANE2 ---
Pre-Anesthetic Assessment Height/Weight: Height 1.68 m Weight 66.315 kg Temp Pulse Resp BP Pulse Ox O2 Del Method O2 Flow Rate 97.2 F L 101 H 18 157/91 94 4 01/10/22 10:32 01/10/22 10:32 01/10/22 10:32 01/10/22 10:32 01/10/22 10:32 01/10/22 10:32 01/10/22 10:32 Preop Diagnosis: Odynophagia Operation Date: 01/10/22 11:30 Proposed Procedures p EGD(Not Applicable) - Curt Peguero MD Familial anesthetic complications: None Was Beta Padmaja taken within 24 hours: N/A Was Clonidine taken within 24 hours: N/A Last intake: 8hrs Social No alcohol and No tobacco Exam alert, oriented x 3, clear to auscultation bilaterally (b/l coarse breath sounds) and regular rate & rhythm Airway Mallampati: Class I Dentition: other (no teeth) Pulmonary Chronic Obstructive Pulmonary Disease Pneumonia, nonsmall cell lung carcinoma CV/HEM Anemia, Coronary Artery Disease (stent), Hypertension, Myocardial Infarction and Peripheral Vascular Disease Metabolic frailty Anesthetic Plan ASA status: 4 Anesthesia: MAC Risk of > 500 ml blood loss (7ml/kg in children): No Medications/Allergies Home Medications Medication Instructions Recorded Confirmed Last Taken Type alprazolam 1 mg tablet 1 mg PO QPM 03/13/20 01/08/22 01/07/22 History carvedilol 6.25 mg tablet 6.25 mg PO BID #60 tabs 03/11/21 01/08/22 01/08/22 Rx lovastatin 40 mg tablet 40 mg PO DAILY #30 tabs 03/11/21 01/08/22 01/07/22 Rx albuterol sulfate 90 mcg/actuation 2 puff inhalation Q6H PRN 12/18/21 01/08/22 12/28/21 Rx aerosol inhaler shortness of breath or wheezing #8.5 grams fluticasone fur. 100 mcg-umeclid 1 inh inhalation DAILY #60 ea 12/18/21 01/08/22 01/08/22 Rx 62.5 mcg-vilant 25 mcg inhalat.powder (Trelegy Ellipta) food supplemt, lactose-reduced 1 ea PO TID 12/30/21 01/08/22 01/08/22 History (Ensure oral liquid) fluconazole 100 mg tablet 100 mg PO DAILY 14 days #14 tabs 01/01/22 01/08/22 01/08/22 Rx lisinopril 20 mg tablet 10 mg PO DAILY #10 tabs 01/01/22 01/08/22 01/08/22 Rx oxycodone 10 mg tablet 10 mg PO Q6H PRN pain #20 tabs 01/01/22 01/08/22 Unknown Rx sennosides 8.6 mg-docusate sodium 1 tab-cap PO DAILY #20 tabs 01/01/22 01/08/22 01/08/22 Rx 50 mg tablet (Senna-S) omeprazole 20 mg tablet,delayed 20 mg PO DAILY PRN Heartburn 01/08/22 01/08/22 Unknown History release Allergies Allergy/AdvReac Type Severity Reaction Status Date / Time Penicillins Allergy Unknown Verified 01/08/22 10:06 poison yeny extract Allergy ALGY-Rash Verified 01/08/22 10:06 poison oak extract Allergy ALGY-Rash Verified 01/08/22 10:06 Current Medications Generic Name Dose Route Start Last Admin Trade Name Freq PRN Reason Stop Dose Admin Albuterol/Ipratropium 3 ml 01/08/22 13:54 01/08/22 20:40 Ipratropium-Albuterol 3 Ml Neb INHALATION 3 ml Q6H PRN Administration SHORTNESS OF BREATH Alprazolam 1 mg 01/08/22 21:00 01/09/22 21:00 Alprazolam 0.5 Mg Tablet PO Not Given BEDTIME JOSE LUIS Atorvastatin Calcium 20 mg 01/09/22 09:00 01/10/22 09:21 Atorvastatin 40 Mg Tablet PO Not Given DAILY JOSE LUIS Budesonide 0.5 mg 01/08/22 20:00 01/10/22 09:41 Budesonide 0.5 Mg/2 Ml Neb INHALATION 0.5 mg BID.RESPIRATORY JOSE LUIS Administration Docusate Sodium 100 mg 01/08/22 18:00 01/10/22 09:21 Docusate Sodium 10 Mg/Ml (5ml) Liq PO Not Given BID JOSE LUIS Levofloxacin/Dextrose 750 mg in 150 mls @ 100 mls/hr 01/08/22 13:45 01/09/22 19:37 Levaquin-D5w IV Infused Q24H JOSE LUIS Infusion Protocol Sodium Chloride 1,000 mls @ 75 mls/hr 01/09/22 19:00 01/09/22 20:59 Sodium Chloride 0.9% IV 75 mls/hr .[id number] JOSE LUIS Administration Nystatin 500,000 unit 01/08/22 17:00 01/10/22 09:27 Nystatin 100,000 Unit/Ml Udc 5 Ml PO 500,000 unit QID JOSE LUIS Administration Pantoprazole Sodium 40 mg 01/08/22 18:00 01/10/22 09:[address] 40 Mg Tablet PO Not Given BID JOSE LUIS Sertraline HCl 25 mg 01/09/22 09:35 01/10/22 09:21 Sertraline 50 Mg Tablet PO Not Given DAILY JOSE LUIS PFSH Anesthesia Medical History (Updated 01/08/22 @ 13:48 by Gunnar Berkowitz MD) Anemia Anxiety and depression CAD (coronary artery disease) COPD (chronic obstructive pulmonary disease) Emphysema of lung GERD (gastroesophageal reflux disease) History of ST elevation myocardial infarction (STEMI) HTN (hypertension) Hyperlipidemia Lung mass 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 Peripheral arterial disease Pneumonia Port-A-Cath in place She will get a PICC line PVD (peripheral vascular disease) Stress-induced cardiomyopathy Surgical History (Updated 01/08/22 @ 13:41 by Gunnar Berkowitz MD) S/P peripheral artery angioplasty with stent placement S/P PTCA (percutaneous transluminal coronary angioplasty) Family History Mother Cancer Father Cancer Hypertension Brother Myocardial infarction CAD (coronary artery disease) Denies family history of Diabetes Clotting disorder Dementia Hyperlipidemia Psychiatric illness Chronic kidney disease (CKD) Suicide Anesthesia complication Bleeding disorder Lung disease Stroke Social History Smoking and tobacco status: former smoker Alcohol intake: never Data Anesthesia : 01/10/22 04:38 01/10/22 04:38 Short CBC 01/08/22 01/09/22 01/10/22 Range/Units 11:05 04:45 04:38 WBC 14.8 H 10.0 9.4 (4.0-10.0) 10^3/uL Hgb 8.4 L 7.7 L 8.1 L (11.5-15.3) g/dL Hct 26.8 L 24.5 L 26.0 L (37.0-47.0) % MCV 93.7 93.9 92.9 (81-99) fl Plt Count 481 H 389 447 H (130-400) 10^3/cmm Neut % (Auto) 73.3 78.6 88.5 % Neut # (Auto) 10.83 H 7.86 H 8.35 H (1.8-7.7) 10^3/uL BMP 01/08/22 01/09/22 01/10/22 11:05 04:45 04:38 Sodium 131 L 136 140 Potassium 4.5 3.9 3.9 Chloride 96 L 104 108 H Carbon Dioxide 25 21 L 20 L BUN 15 11 14 Creatinine 0.9 0.6 0.4 L Glucose 125 H 86 133 H Calcium 9.8 8.9 8.8 Liver Function 01/08/22 01/09/22 01/10/22 Range/Units 11:05 04:45 04:38 Total Bilirubin 0.4 0.2 0.2 (0.15-1.2) mg/dL AST 18 14 14 (0-32) U/L ALT 16 12 11 (0-33) U/L Alkaline Phosphatase 61 49 50 (35-105) U/L Albumin 2.7 L 2.2 L 2.2 L (3.5-5.2) g/dL Urine 01/08/22 Range/Units 20:05 Urine Color Yellow (Yellow) Urine Appearance Sl hazy A (CLEAR) Urine pH 5 (5-7) Ur Specific [place] 1.015 (1.005-1.030) Urine Protein Trace (Negative) Urine Glucose (UA) Norm (Normal) Urine Ketones 1+ H (Negative) Urine Nitrate Negative (Negative) Urine Bilirubin 1+ H (Negative) Ur Leukocyte Esterase Trace H (Negative) Urine RBC 5-10 H (0-2) /hpf Urine WBC 0-4 H (0-5) /hpf Ur Renal Epithelial Cell 0-2 /hpf ABG 01/08/22 11:20 Specimen Type Arterial Sample Site Radial, left ABG pH 7.42 ABG pCO2 38.6 ABG pO2 114.0 H ABG HCO3 25.2 ABG O2 Saturation 99.5 ABG Base Excess 0.8 A-a O2 Gradient 8.3 O2 Delivery Device Nc O2 Liters/Min 3.0 FiO2 32.0 Microbiology 01/08/22 14:05 Blood Culture - Preliminary Blood NEGATIVE TO DATE 01/08/22 14:08 Blood Culture - Preliminary Blood NEGATIVE TO DATE Cardiac Studies: No Data to Display
--- NOTE | 2022-01-10 13:49 | ANE.PACU2 ---
Inpatient post-anesthesia follow up: Airway intact: Yes Vital signs: Temperature 97.2 F Pulse Rate 101 Respiratory Rate 18 Blood Pressure 157/91 Pulse Oximetry 94 Oxygen Delivery Me thod Room Air Oxygen Flow Rate 4 Fraction of Inspir ed Oxygen Hydration adequate: Yes Nausea and vomiting: No Pain level: 1 Mental status: Baseline
[2022-01-10] MEDS: levofloxacin-dextrose 5 % 750 MG/150 ML PREMIX 100 MG IV (18:36)
[2022-01-10] MEDS: pantoprazole DR 40 mg Tablet PO (18:37)
[2022-01-10] MEDS: predniSONE 10 mg Tablet PO (18:37)
[2022-01-10] MEDS: ALPRAZolam 0.5 mg Tablet 1 MG PO (21:09)
[2022-01-11] VITALS (15 sets, daily range): BP systolic 117–146; BP diastolic 52–96; PULSE 80–97; RESP 14–18; TEMP 36.4–36.9; O2SAT 84–93
[2022-01-11] MEDS: sodium chloride 0.9% 1,000 ML 75 ML IV ×2 (03:59→18:10)
[2022-01-11 04:55] LABS: Basophils % 0.2 %; Hematocrit 25.4 % (37.0-47.0); Hemoglobin 7.7 g/dL (11.5-15.3); Lymphocytes # 0.5 10^3/uL (0.8-4.8); Lymphocytes % 3.7 %; Mean Corpuscular HGB Conc 30.3 g/dL (30.0-36.0); Mean Corpuscular Hemoglobin 28.5 pg (28.0-34.0); Mean Corpuscular Volume 94.1 fl (81-99); Mean Platelet Volume 10.8 fL (7.4-10.4); Monocytes # 0.3 10^3/uL (0.2-0.9); Monocytes % 2.2 %; Neutrophils # 11.79 10^3/uL (1.8-7.7); Neutrophils % 91.7 %; Nucleated Red Blood Cells % 0 %; Platelet Count 465 10^3/cmm (130-400); Red Cell Distribution Width 17.5 % (12.1-15.1); White Blood Count 12.9 10^3/uL (4.0-10.0)
[2022-01-11 05:19] LABS: Alanine Aminotransferase 10 U/L (0-33); Albumin Level 2.4 g/dL (3.5-5.2); Alkaline Phosphatase 46 U/L (35-105); Anion Gap 6.6 (5-19); Aspartate Amino Transferase 15 U/L (0-32); Blood Urea Nitrogen 27 mg/dL (8-23); Calcium 8.5 mg/dL (8.5-10.5); Carbon Dioxide 23 mmol/L (22-29); Chloride 105 mmol/L (98-107); Globulin 2.8 g/dL (1.3-4.6); Glomerular Filtration Rate 123.1 mL/min (90-130); Glucose 136 mg/dL (65-115); Magnesium 1.8 mg/dL (1.7-2.3); Osmolality Calculated 279 mOsm/kg (285-295); Potassium 3.6 mmol/L (3.5-5.1); Sodium 131 mmol/L (136-145); Total Bilirubin 0.2 mg/dL (0.15-1.2); Total Protein 5.2 g/dL (6.6-8.7)
--- NOTE | 2022-01-11 07:50 | PM.PN ---
Subjective Subjective: Uneventful night. Patient undergone EGD by me yesterday that did show small hiatal hernia and mild prepyloric gastritis. Medications: Reviewed: Yes Vitals/I&O/Wt Last Vital Signs Temp 97.6 F 01/11/22 04:00 Pulse 82 01/11/22 04:00 Resp 18 01/11/22 04:00 BP 132/72 01/11/22 04:00 Pulse Ox 91 01/11/22 04:00 O2 Del Method 01/10/22 19:59 O2 Flow Rate 4 01/10/22 20:00 01/10/22 01/11/22 01/11/22 22:59 06:59 14:59 Intake Total 1530 / 1730 500 / 2230 Output Total 300 / 300 Balance 1530 / 1730 200 / 1930 Weight last 48 hrs Weight 147 lb 11.2 oz Weight 146 lb 3.2 oz Physical Exam Narrative: Patient is conscious alert oriented X3 Disheveled and cachectic BMI 24 Head and neck examination PERRLA no masses no cervical lymphadenopathy no jaundice Abdomen nontender nondistended soft no organomegaly guarding or rigidity/no signs of peritonitis Data : 01/11/22 04:35 01/11/22 04:35 A&P Assessment and plan (1) Failure to thrive: Reviewed endoscopy findings with the patient No contraindication of feeding the patient as there is no underlying stricture or growth of her foregut. Educated the patient about the importance of having protein shakes 3 to 4 cans a day Educated the spouse as well Aspiration precaution No indication for PEG tube at the moment Assurance and education All questions have been answered and all concerns have been addressed to patient's satisfaction. Attestations Medical Necessity Statement*: Per admitting service Coding Level of Care Code Acute Equipment Detailer for Chg Fwd Diagnoses Failure to thrive
[2022-01-11] MEDS: budesonide 0.5 mg/2 mL Neb INHALATION (07:52)
[2022-01-11] MEDS: ipratropium-albuterol 3 mL Neb INHALATION (07:52)
[2022-01-11] MEDS: pantoprazole DR 40 mg Tablet PO ×2 (09:00→18:08)
[2022-01-11] MEDS: atorvastatin 40 mg Tablet 20 MG PO (09:00)
[2022-01-11] MEDS: predniSONE 10 mg Tablet PO ×2 (09:01→18:08)
[2022-01-11] MEDS: sertraline 50 mg Tablet 25 MG PO (09:01)
[2022-01-11] MEDS: nystatin 100,000 unit/mL UDC 5 mL 500000 UNIT PO (09:01)
--- NOTE | 2022-01-11 11:27 | P.PN_ITS ---
Subjective Subjective: She is wanting to go home Still endorsing low appetite Her hemoglobin is 7.7 I will give her 1 unit PRBC in hopes that would improve her appetite She is hemodynamically stable No active bleeding Vitals/I&O/Wt Last Vital Signs Temp 98.4 F 01/11/22 08:00 Pulse 88 01/11/22 08:02 Resp 16 01/11/22 08:00 BP 130/64 01/11/22 08:00 Pulse Ox 85 L 01/11/22 08:00 O2 Del Method 01/11/22 08:00 O2 Flow Rate 4 01/10/22 20:00 01/10/22 01/11/22 01/11/22 22:59 06:59 14:59 Intake Total 1530 / 1730 500 / 2230 360 / 360 Output Total 300 / 300 Balance 1530 / 1730 200 / 1930 360 / 360 Weight last 48 hrs Weight 66.996 kg Weight 66.315 kg Physical Exam Narrative: Looks dehydrated Currently on room air Awake and alert S1, S2 PICC line in right arm No new focal deficit Pleasant and cooperative during my evaluation Abdomen soft Data : 01/11/22 04:35 01/11/22 04:35 A&P Assessment and plan (1) Failure to thrive: (2) Pneumonia: (3) Anemia: (4) Hyponatremia: (5) Hypotension: (6) Acute dehydration: (7) Non-small cell cancer of right lung: (8) Dysphagia: (9) Generalized weakness: Plan Failure to thrive: Low appetite Her hemoglobin is 7.0 She received multiple bags of iron I will give her 1 unit PRBC in hopes that would improve her appetite as well No active bleeding Hyponatremia related to poor p.o. intake Sodium today 131 Wants a blood transfusion is finished we can continue normal saline clinically patient looks hypoeuvolemic and dehydrated, normal TSH and cortisol PICC line was placed on previous admission for chemotherapy, she has received first session of chemotherapy in the hospital, Port-A-Cath placement as per Dr. Yasmany Peguero's plan Odynophagia EGD showed gastritis no active ulcer no fungal rash, she does not need fluconazole Hypotension Related to poor p.o. intake Stopped all of her antihypertensives Improved with IV fluid hydration Postobstructive pneumonia no active signs of sepsis she has been given Levaquin Iron deficiency anemia Iron sucrose was given I will give her 1 unit PRBC for symptomatic anemia Discharge tomorrow SCDs for DVT prophylaxis Attestations Medical Necessity Statement*: Discharge tomorrow Time Spent in Patient Care: 30 Coding Level of Care Code Acute Brick Extruder Operator for Chg Fwd Diagnoses Failure to thrive Pneumonia J18.9 Anemia D64.9 Hyponatremia E87.1 Hypotension I95.9 Acute dehydration E86.0 Non-small cell cancer of right lung C34.91 Dysphagia R13.10 Generalized weakness R53.1
--- NOTE | 2022-01-11 12:22 | PC.SOCIAL ---
IMM Update pg 2 of IMM Updated and reviewed w/ patient. Copy provided. Copy dated, initialed and placed in chart.
[2022-01-11] MEDS: levofloxacin-dextrose 5 % 750 MG/150 ML PREMIX 100 MG IV (18:08)
[2022-01-11] MEDS: ALPRAZolam 0.5 mg Tablet 1 MG PO (21:43)
[2022-01-12 04:00] VITALS: BP 174/83; PULSE 85; RESP 17; TEMP 36.4; O2SAT 94
[2022-01-12 04:28] LABS: Basophils % 0.1 %; Hematocrit 27.1 % (37.0-47.0); Hemoglobin 8.2 g/dL (11.5-15.3); Lymphocytes # 0.5 10^3/uL (0.8-4.8); Lymphocytes % 4.4 %; Mean Corpuscular HGB Conc 30.3 g/dL (30.0-36.0); Mean Corpuscular Hemoglobin 28.4 pg (28.0-34.0); Mean Corpuscular Volume 93.8 fl (81-99); Monocytes # 0.1 10^3/uL (0.2-0.9); Monocytes % 1.2 %; Neutrophils # 9.51 10^3/uL (1.8-7.7); Neutrophils % 93.1 %; Nucleated Red Blood Cells % 0 %; Platelet Count 333 10^3/cmm (130-400); Red Blood Count 2.89 10^6/uL (4.1-5.3); Red Cell Distribution Width 17.3 % (12.1-15.1); White Blood Count 10.2 10^3/uL (4.0-10.0)
[2022-01-12 05:15] LABS: Anion Gap 9.9 (5-19); Blood Urea Nitrogen 23 mg/dL (8-23); Calcium 7.2 mg/dL (8.5-10.5); Carbon Dioxide 21 mmol/L (22-29); Chloride 111 mmol/L (98-107); Glomerular Filtration Rate 159.2 mL/min (90-130); Glucose 108 mg/dL (65-115); Osmolality Calculated 290 mOsm/kg (285-295); Potassium 3.9 mmol/L (3.5-5.1); Sodium 138 mmol/L (136-145)
--- NOTE | 2022-01-12 07:52 | PM.DCS ---
Discharge Providers Date of Admission: 01/08/22 13:43 Date of Discharge: January 12, 2022 Attending Provider at Admission: Gunnar Berkowitz MD Attending Provider at Discharge: Charity Chowdary MD Primary Care Provider: Galen Felipe Diagnoses at Discharge Discharge Diagnosis (1) Failure to thrive: Status: Acute (2) Pneumonia: Status: Acute (3) Anemia: Status: Acute (4) Hyponatremia: Status: Acute (5) Hypotension: Status: Acute (6) Acute dehydration: Status: Acute (7) Non-small cell cancer of right lung: Status: Acute (8) Dysphagia: Status: Acute (9) Generalized weakness: Status: Acute Reason for Visit Reason for Visit: Low BP, Sent by [facility] Hospital Course Hospital Course 66-year female who was admitted to the hospital because of dehydration, hypotension, during this hospitalization she received first chemotherapy by Dr. Jade, for her odynophagia Dr. Peguero did EGD which showed gastritis and hiatal hernia no signs of stricture or esophageal candidiasis, for concern of postobstructive pneumonia she was kept on IV antibiotics, cultures remain negative, afebrile. Please note she became hypertensive during her hospitalization when we discontinued her antihypertensive regimen. I had to restart lisinopril at lower dose. Patient is still trying to avoid solid food she drank Ensure mostly. She will get chemotherapy through a PICC line for now Mediport placement as per Dr. Peguero. I have asked her to call Dr. Jade on Thursday to learn about her next chemotherapy session. She received multiple doses of iron infusion throughout her hospitalization, I gave her a unit of blood in hopes her appetite would improve. Hemoglobin at the time of discharge is 8.2. No active GI bleed signs. She has iron deficiency anemia. She will get iron supplements every other day with stool softeners. I would not continue her antibiotics she has remained afebrile, white count is 10.2. Cultures negative Physical Exam Narrative: Patient is dehydrated Awake and alert Currently on room air Hypertensive blood pressure 181/96 she just received lisinopril Agitated Fatigue Awake and alert Abdomen soft S1, S2 Discharge Data Studies Completed and Pending Completed Studies During Hospitalization Category Date Time Status XR chest 1V portable [id number] Stat Exams 01/08/22 10:47 Completed Pending at discharge Category Date Time Status Blood Culture Stat Lab 01/08/22 14:08 Results Fecal Occult Blood [Immunochemical Fecal OCB] Routine Lab 01/08/22 13:50 Uncollected Sputum Culture and Gram Stain Routine Lab 01/08/22 13:44 Uncollected Radiology Impressions Chest X-Ray 01/08/22 10:47 IMPRESSION: 1. Stable right perihilar mass 2. Interstitial congestion right perihilar and upper lobe 3. Right upper lobe mass seen on CT is not visible 4. Right side PICC in the SVC 5. Hyperexpanded left hemithorax Laboratory Results WBC 10.2 10^3/uL (4.0-10.0) H 01/12/22 03:59 RBC 2.89 10^6/uL (4.1-5.3) L 01/12/22 03:59 Hgb 8.2 g/dL (11.5-15.3) L 01/12/22 03:59 Hct 27.1 % (37.0-47.0) L 01/12/22 03:59 MCV 93.8 fl (81-99) 01/12/22 03:59 MCH 28.4 pg (28.0-34.0) 01/12/22 03:59 MCHC 30.3 g/dL (30.0-36.0) 01/12/22 03:59 RDW 17.3 % (12.1-15.1) H 01/12/22 03:59 Plt Count 333 10^3/cmm (130-400) 01/12/22 03:59 MPV 11.0 fL (7.4-10.4) H 01/12/22 03:59 Neut % (Auto) 93.1 % 01/12/22 03:59 Lymph % (Auto) 4.4 % 01/12/22 03:59 [place] % (Auto) 1.2 % 01/12/22 03:59 Eos % (Auto) 0.0 % 01/12/22 03:59 Baso % (Auto) 0.1 % 01/12/22 03:59 Neut # (Auto) 9.51 10^3/uL (1.8-7.7) H 01/12/22 03:59 Lymph # (Auto) 0.5 10^3/uL (0.8-4.8) L 01/12/22 03:59 [place] # (Auto) 0.1 10^3/uL (0.2-0.9) L 01/12/22 03:59 Eos # (Auto) 0.0 10^3/uL (0.0-0.8) 01/12/22 03:59 Baso # (Auto) 0.0 10^3/uL (0.0-0.1) 01/12/22 03:59 Nucleated RBC % (auto) 0 % 01/12/22 03:59 Nucleated RBCs # 0.0 /100WBC 01/12/22 03:59 Specimen Type Arterial 01/08/22 11:20 Sample Site Radial, left 01/08/22 11:20 ABG pH 7.42 (7.35-7.45) 01/08/22 11:20 ABG pCO2 38.6 mmHg (35-45) 01/08/22 11:20 ABG pO2 114.0 mmHg (80.0-100.0) H 01/08/22 11:20 ABG HCO3 25.2 mmol/L (22-26) 01/08/22 11:20 ABG O2 Saturation 99.5 01/08/22 11:20 ABG Base Excess 0.8 mmol/L (-2.0-2.0) 01/08/22 11:20 Pito Test Pos 01/08/22 11:20 A-a O2 Gradient 8.3 mmHg (5-10) 01/08/22 11:20 Hematocrit 27.3 % (37-47) L 01/08/22 11:20 Hgb O2 Saturation 97.9 % (95-100) 01/08/22 11:20 Carboxyhemoglobin 1.5 %THgb (0.4-20.1) 01/08/22 11:20 Methemoglobin 0.1 % (0.4-1.5) L 01/08/22 11:20 Total Hemoglobin 8.9 g/dL (12-16) L 01/08/22 11:20 Sodium 135.0 mmol/L (131-143) 01/08/22 11:20 Potassium 3.9 mmol/L (3.5-5.0) 01/08/22 11:20 Glucose 116.0 mg/dL (70-115) H 01/08/22 11:20 Ionized Calcium 1.3 mmol/L (1.1-1.4) 01/08/22 11:20 O2 Delivery Device Nc 01/08/22 11:20 O2 Liters/Min 3.0 % 01/08/22 11:20 FiO2 32.0 % 01/08/22 11:20 Road Manager ID Amh 01/08/22 11:20 Sodium 138 mmol/L (136-145) 01/12/22 03:59 Potassium 3.9 mmol/L (3.5-5.1) 01/12/22 03:59 Chloride 111 mmol/L (98-107) H 01/12/22 03:59 Carbon Dioxide 21 mmol/L (22-29) L 01/12/22 03:59 Anion Gap 9.9 (5-19) 01/12/22 03:59 BUN 23 mg/dL (8-23) 01/12/22 03:59 Creatinine 0.4 mg/dL (0.5-0.9) L 01/12/22 03:59 GFR Calculation 159.2 mL/min (90-130) H 01/12/22 03:59 Glucose 108 mg/dL (65-115) 01/12/22 03:59 Calculated Osmolality 290 mOsm/kg (285-295) 01/12/22 03:59 Calcium 7.2 mg/dL (8.5-10.5) L 01/12/22 03:59 Magnesium 1.8 mg/dL (1.7-2.3) 01/11/22 04:35 Iron 15 ug/dL (37-145) L 01/08/22 11:05 TIBC 133 mcg/dl 01/08/22 11:05 % Saturation 11.2 % (20-50) L 01/08/22 11:05 Unsat Iron Binding 118 ug/dL (112-347) 01/08/22 11:05 Ferritin 493 ng/mL (15-150) H 01/08/22 11:05 Total Bilirubin 0.2 mg/dL (0.15-1.2) 01/11/22 04:35 AST 15 U/L (0-32) 01/11/22 04:35 ALT 10 U/L (0-33) 01/11/22 04:35 Alkaline Phosphatase 46 U/L (35-105) 01/11/22 04:35 Total Protein 5.2 g/dL (6.6-8.7) L 01/11/22 04:35 Albumin 2.4 g/dL (3.5-5.2) L 01/11/22 04:35 Globulin 2.8 g/dL (1.3-4.6) 01/11/22 04:35 TSH 3.84 uIU/mL (0.27-4.20) 01/08/22 11:05 TSH Cancelled 01/08/22 11:05 Random Cortisol 29.50 ug/dL (2.47-19.5) H 01/08/22 11:10 Urine Color Yellow (Yellow) 01/08/22 20:05 Urine Appearance Sl hazy (CLEAR) A 01/08/22 20: Urine pH 5 (5-7) 01/08/22 20:05 Ur Specific [place] 1.015 (1.005-1.030) 01/08/22 20:05 Urine Protein Trace (Negative) 01/08/22 20:05 Urine Glucose (UA) Norm (Normal) 01/08/22 20:05 Urine Ketones 1+ (Negative) H 01/08/22 20:05 Urine Blood 2+ (Negative) H 01/08/22 20:05 Urine Nitrate Negative (Negative) 01/08/22 20: Urine Bilirubin 1+ (Negative) H 01/08/22 20:05 Urine Urobilinogen Norm mg/dL (Negative) 01/08/22 20:05 Ur Leukocyte Esterase Trace (Negative) H 01/08/22 20:05 Urine RBC 5-10 /hpf (0-2) H 01/08/22 20:05 Urine WBC 0-4 /hpf (0-5) H 01/08/22 20:05 Ur Squamous Epith Cells 5-10 /hpf (0-5) H 01/08/22 20:05 Ur Renal Epithelial Cell 0-2 /hpf 01/08/22 20:05 Amorphous Sediment Not Reportable 01/08/22 20:05 Urine Bacteria Trace /hpf (NONE) 01/08/22 20:05 Hyaline Casts 0-4 /lpf H 01/08/22 20:05 Blood Type A Positive 01/11/22 12:03 Rho(D) Type Positive 01/11/22 12:03 Antibody Screen Negative 01/11/22 12:03 Crossmatch See Detail 01/11/22 12:03 Vitals Last Vital Signs Temp 97.6 F 01/12/22 04:00 Pulse 85 01/12/22 04:00 Resp 17 01/12/22 04:00 BP 174/83 01/12/22 04:00 Pulse Ox 94 01/12/22 04:00 O2 Del Method 01/11/22 15:52 O2 Flow Rate 4 01/10/22 20:00 Discharge Plan Discharge Patient Disposition: Home Condition: Stable Prescriptions: Continued alprazolam 1 mg tablet 1 mg PO QPM lovastatin 40 mg tablet 40 mg PO DAILY Qty: 30 12RF albuterol sulfate 90 mcg/actuation HFA aerosol inhaler 2 puff inhalation Q6H PRN (Reason: shortness of breath or wheezing) Qty: 8.5 0RF Trelegy Ellipta 100-62.5-25 mcg blister with device 1 inh inhalation DAILY Qty: 60 6RF Ensure Liquid 1 ea PO TID oxycodone 10 mg tablet 10 mg PO Q6H PRN (Reason: pain) Qty: 20 0RF sennosides-docusate sodium [Senna-S] 8.6-50 mg tablet 1 tab-cap PO DAILY Qty: 20 0RF omeprazole 20 mg tablet,delayed release (DR/EC) 20 mg PO DAILY PRN (Reason: Heartburn) lisinopril 20 mg tablet 10 mg PO DAILY Qty: 30 1RF Discontinued carvedilol 6.25 mg tablet 6.25 mg PO BID Qty: 60 12RF fluconazole 100 mg tablet 100 mg PO DAILY 14 Days Qty: 14 0RF Discharge Orders: Discharge Order (Routine); Ordered 01/12/22 Ordered By: Charity Chowdary Other Ambulatory Orders: DME: Antoine (Order) Location: None Selected Ordered By: Charity Chowdary Referrals: [facility] [place] Home Care ([facility]) [Outside] Galen Felipe [Primary Care Provider] - 1 week (Please call Thursday morning to schedule a hospital follow up appointment within 1 week. ) Miguel Ángel Jade MD [Hospitalist] - 1-3 days Patient Instructions: Lung Cancer (DC), Hyponatremia (GEN), Anemia (GEN), PICC (Peripherally Inserted Central Catheter) (GEN), GI Discharge Instructions, Opioid Safety Patient's Health Concerns: Your blood pressure was very low when you came in?so we held your antihypertensive regimen. If your systolic blood pressure remains above 140 mmHg you can take lisinopril 10 mg daily in case it is very high at that stay above 150 mmHg you can take another tablet to make it 20 mg daily maximum dose of lisinopril in 1 days [address] Jade's office on Thursday to learn about the chemotherapy sessions EGD showed gastritis and hiatal hernia You can eat solid food as per your taste there are no contraindications. Discharge Attestations Time Spent in Discharge Care*: less than 30 min Quality Metrics Clinical Quality Measures [ No reported AMI, CVA or VTE this stay] Coding Level of Care Code Acute Chg FW DC note Diagnoses Failure to thrive Pneumonia J18.9 Anemia D64.9 Hyponatremia E87.1 Hypotension I95.9 Acute dehydration E86.0 Non-small cell cancer of right lung C34.91 Dysphagia R13.10 Generalized weakness R53.1
[2022-01-12 08:00] VITALS: BP 181/96; PULSE 84; PULSE 92; RESP 16; TEMP 36.6; O2SAT 90; O2SAT 94
[2022-01-12] MEDS: pantoprazole DR 40 mg Tablet PO (08:41)
[2022-01-12 08:42] VITALS: RESP 18; O2SAT 92
[2022-01-12] MEDS: oxyCODONE 5 mg IR Tab/Cap 10 MG PO (08:42)
[2022-01-12] MEDS: predniSONE 10 mg Tablet PO (08:42)
[2022-01-12] MEDS: atorvastatin 40 mg Tablet 20 MG PO (08:42)
[2022-01-12] MEDS: lisinopril 10 mg Tablet PO (10:20)
[2022-01-12 11:42] VITALS: BP 152/73; PULSE 92; RESP 18; TEMP 36.6; O2SAT 92
--- NOTE | 2022-01-12 11:45 | PC.NURSE ---
Discharge Note Patient discharged to home via private vehicle accompanied by . Discharge instructions reviewed with patient and/or floor representative. Mobile pharmacy medications and/or prescriptions provided. Belongings/home medications returned. Instructed pt to call jhonny mann/oncologist for a ff-up appointment tomorrow. contact# for her to call them tomorrow. [phone].
== END 2022-01-12 11:44 | disposition home or self-care (01) ==
LOC: ER 11:53 → ICU 13:27 → MEDSURG 01-09 00:51 → ICU 01-17 16:43
PROVIDERS: Surgery; Admitting Provider Internal Medicine; Emergency Provider Family Medicine; PCP Family Medicine; Visit Provider Internal Medicine
PROC: 0DJ08ZZ Inspection of Upper Intestinal Tract, Via Natural or Artificial Opening Endoscopic (ICD-10-PCS; CPT 43235; principal; 2022-01-10 11:30)
DX: R62.7 Adult failure to thrive (principal); J18.9 Pneumonia, unspecified organism; D64.9 Anemia, unspecified; E86.0 Dehydration; I95.9 Hypotension, unspecified; C34.91 Malignant neoplasm of unspecified part of right bronchus or lung; R13.10 Dysphagia, unspecified; R53.1 Weakness; E87.1 Hypo-osmolality and hyponatremia; J43.8 Other emphysema; I25.10 Atherosclerotic heart disease of native coronary artery without angina pectoris; I25.2 Old myocardial infarction; I10 Essential (primary) hypertension; E78.5 Hyperlipidemia, unspecified; Z87.891 Personal history of nicotine dependence; F41.9 Anxiety disorder, unspecified; F32.A Depression, unspecified
CPT/HCPCS: 36415; 36430; 36569; 36592; 36600; 43235; 71045; 80048; 80051; 80053; 81001; 82330; 82533; 82728; 82805; 83540; 83550; 83735; 84443; 85025; 86850; 86900; 86920; 87040; 93005; 94640; 96360; 96361; 97110; 97161; 97530; 99213; 99285; G0378; J1200; J1453; J1756; J1956; J2469; J2704; J2930; J3490; J7030; J7040; J7050; J7512; J7626; J8540; J9045; J9267; P9016

== ENCOUNTER 2022-01-20 05:59 | Day surgery (SDC) | payer MEDICARE, SELFPAY ==
[2022-01-17 13:34] VITALS: BMI 19.3
[2022-01-20 06:24] LABS: Basophils % 0.6 %; Eosinophils % 0.6 %; Hematocrit 31.7 % (37.0-47.0); Hemoglobin 10.3 g/dL (11.5-15.3); Lymphocytes # 0.8 10^3/uL (0.8-4.8); Lymphocytes % 44.1 %; Mean Corpuscular HGB Conc 32.5 g/dL (30.0-36.0); Mean Corpuscular Hemoglobin 28.9 pg (28.0-34.0); Mean Platelet Volume 10.8 fL (7.4-10.4); Monocytes # 0.4 10^3/uL (0.2-0.9); Monocytes % 22.6 %; Neutrophils % 29.3 %; Nucleated Red Blood Cells % 0 %; Platelet Count 126 10^3/cmm (130-400); Red Blood Count 3.56 10^6/uL (4.1-5.3); Red Cell Distribution Width 16.2 % (12.1-15.1); White Blood Count 1.8 10^3/uL (4.0-10.0)
[2022-01-20 06:36] LABS: Neutrophils # 0.52 10^3/uL (1.8-7.7)
--- NOTE | 2022-01-20 07:01 | W.PM.OPSUD ---
Surgery/Procedure H&P Update DATE OF PROCEDURE: January 20, 2022 DATE H&P PERFORMED: 01/08/22 H&P UPDATE INFORMATION: I have reviewed H&P completed within last 30 days and Changes to prior documentation as noted here (Patient has remarkable neutropenia and will postpone the procedure and have the patient follow-up with Dr. Jade's office) PREOP DIAGNOSIS: Odynophagia PLANNED PROCEDURE: Operation Date: 01/20/22 07:00 Proposed Procedures p port a cath placement 35574,C34.2(Not Applicable) - Curt Peguero MD
== END 2022-01-20 06:45 | disposition home or self-care (01) ==
PROVIDERS: PCP Family Medicine; Visit Provider Surgery
DX: Z01.818 Encounter for other preprocedural examination (principal)
CPT/HCPCS: 36592; 85025

== ENCOUNTER 2022-01-23 13:00 | Oncology outpatient (recurring) (ONCR) | payer MEDICARE, SELFPAY ==
--- NOTE | 2022-01-02 | CT_ITS ---
Radiation Therapy Planning CT images; total exam DLP: 326.06 mGy-cm MTDD
[2022-01-02] MEDS: iodixanol 320 mg/mL 100mL Btl (RAD THERAPY ONLY) IV (13:12)
[2022-01-02] MEDS: lactated ringers 1,000 ML 999 ML IV (14:36)
[2022-01-02 15:43] VITALS: BP 129/59; PULSE 82; TEMP 36.7; O2SAT 94
[2022-01-16 11:10] LABS: Basophils % 0.6 %; Eosinophils % 0.3 %; Hemoglobin 8.9 g/dL (11.5-15.3); Lymphocytes # 0.7 10^3/uL (0.8-4.8); Lymphocytes % 19.2 %; Mean Corpuscular HGB Conc 31.8 g/dL (30.0-36.0); Mean Corpuscular Volume 91.2 fl (81-99); Mean Platelet Volume 10.3 fL (7.4-10.4); Monocytes # 0.1 10^3/uL (0.2-0.9); Monocytes % 4.1 %; Neutrophils # 2.51 10^3/uL (1.8-7.7); Neutrophils % 74.3 %; Nucleated Red Blood Cells % 0 %; Platelet Count 160 10^3/cmm (130-400); Red Blood Count 3.07 10^6/uL (4.1-5.3); Red Cell Distribution Width 16.7 % (12.1-15.1); White Blood Count 3.4 10^3/uL (4.0-10.0)
[2022-01-16 11:28] LABS: Alanine Aminotransferase 21 U/L (0-33); Albumin Level 2.8 g/dL (3.5-5.2); Alkaline Phosphatase 44 U/L (35-105); Anion Gap 14.7 (5-19); Aspartate Amino Transferase 16 U/L (0-32); Blood Urea Nitrogen 25 mg/dL (8-23); Carbon Dioxide 27 mmol/L (22-29); Chloride 95 mmol/L (98-107); Globulin 3.2 g/dL (1.3-4.6); Glomerular Filtration Rate 159.2 mL/min (90-130); Glucose 132 mg/dL (65-115); Osmolality Calculated 280 mOsm/kg (285-295); Potassium 4.7 mmol/L (3.5-5.1); Sodium 132 mmol/L (136-145); Total Bilirubin 0.2 mg/dL (0.15-1.2)
[2022-01-20] MEDS: filgrastim-sndz 300 mcg/0.5 mL Syringe SUBCUT (09:16)
[2022-01-23 13:04] LABS: Hematocrit 33.5 % (37.0-47.0); Hemoglobin 10.8 g/dL (11.5-15.3); Mean Corpuscular HGB Conc 32.2 g/dL (30.0-36.0); Mean Corpuscular Hemoglobin 29.6 pg (28.0-34.0); Mean Corpuscular Volume 91.8 fl (81-99); Mean Platelet Volume 11.6 fL (7.4-10.4); Platelet Count 119 10^3/cmm (130-400); Red Blood Count 3.65 10^6/uL (4.1-5.3); Red Cell Distribution Width 18.3 % (12.1-15.1)
[2022-01-23 13:12] VITALS: BP 114/82; PULSE 123; RESP 18; TEMP 36.9; O2SAT 98
[2022-01-23 13:28] LABS: White Blood Count 32.1 10^3/uL (4.0-10.0)
[2022-01-23 13:45] LABS: Absolute Segmented Neutrophil 29.2 10/cmm (1.6-7.1); Band Neutrophils Absolute 0.3 10^3/cmm (0.0-1.2); Eosinophils 0 %; Lymphocytes 5 %; Lymphocytes Absolute 1.9 10^3/cmm (1.2-3.4); Monocytes Absolute 0.6 10^3/cmm (0.1-0.6); Segmented Neutrophils 91 %; Total Cells Counted 100 (0-100)
[2022-01-23 13:47] LABS: Absolute Neutrophil 29.5 10^3/cmm (1.4-6.5); Giant Platelets Trace; Platelet Estimate Decreased (Normal)
[2022-01-23 13:48] LABS: Anisocytosis 1+; Hypochromasia 1+; Macrocytosis 2+; Microcytosis 1+; Poikilocytosis 2+; Spherocytes 1+; Target Cells Trace
[2022-01-23 13:49] LABS: Ovalocytes 1+; Stomatocytes Trace
[2022-01-23 14:25] VITALS: BP 114/82; PULSE 82; RESP 18; TEMP 36.6; O2SAT 97
--- NOTE | 2022-01-23 15:03 | PC.NURSE ---
Patient came in for the PICC line dressing change after the cbc drawn from dual lumen catheter
== END 2022-01-27 23:59 | disposition home or self-care (01) ==
PROVIDERS: Internal Medicine Medical Oncology; PCP Family Medicine; Visit Provider Radiology Radiation Oncology
DX: C34.2 Malignant neoplasm of middle lobe, bronchus or lung (principal); Z87.891 Personal history of nicotine dependence
CPT/HCPCS: 36592; 77334; 80053; 85007; 85025; 96360; 96372; 99214; Q5101; Q9967

== ENCOUNTER 2022-02-19 07:48 | Emergency (ER) | payer MEDICARE, SELFPAY ==
[2022-02-19] VITALS (30 sets, daily range): BP systolic 95–183; BP diastolic 65–115; PULSE 78–136; RESP 14–20; TEMP 36.6–36.8; O2SAT 86–100; BMI 19.4
--- NOTE | 2022-02-19 08:10 | XRR_ITS ---
PROCEDURE INFORMATION: Exam: XR Chest Exam date and time: 02/19/2022 9:19 AM Age: 66 years old Clinical indication: Cough with hemorrhage; Prior surgery; Surgery type: Cardiac stents; Patient HX: Throwing up blood from mouth and nose since this morning; Additional info: Hemoptysis TECHNIQUE: Imaging protocol: Radiologic exam of the chest. Views: 1 view. COMPARISON: CT chest w con* [id number] 02/13/2022 1:18 PM FINDINGS: Tubes, catheters and devices: PICC line is noted with its tip overlying the superior vena cava. Lungs: There is again volume loss noted on the right. Minimal linear streaking is seen within the right base with thickening of the minor fissure. The the left lung is hyperinflated. Pleural spaces: See Lungs finding. Heart/Mediastinum: Unremarkable. No cardiomegaly. Bones/joints: Unremarkable. XR/XR chest 1V portable [id number] IMPRESSION: Minimal infiltrate right base similar to the CT scan possibly fibrotic.
--- NOTE | 2022-02-19 08:36 | W.ED.GENADLT ---
Documented by User: RUTHIE Knight 02/22/22 07:11 HPI - General Adult General: Chief complaint: General Medical Stated complaint: bleeding Time Seen by Provider: 02/19/22 08:10 History of Present Illness: Patient is a 66-year-old female comes to the ED with hemoptysis. Patient has small cell Right lung cancer and she is currently on chemo therapy treatments with Dr. Jade. Patient also said that she is currently being treated for pneumonia and is on antibiotic. Patient is not on any oxygen at home. This morning patient woke up and started coughing and coughed up blood. She has had multiple episodes of hemoptysis this morning. Endorses some shortness of breath which is chronic with her since she was diagnosed with lung cancer. Denies any fevers, chills, abdominal pain, nausea/vomiting, bladder or bowel symptoms. Associated symptoms: Reports dyspnea; Deny chest pain, headache(s), nausea, rash, palpitations or vomiting Review of Systems Const: Denies: fever(s), chills or fatigue Eyes: Denies: change in vision or eye discomfort ENMT: Denies: throat pain, odynophagia, nasal discharge or nasal congestion Card: Denies: chest pain, palpitations, edema, swelling of feet/ankles, dyspnea on exertion or orthopnea Resp: Reports: dyspnea, productive cough and hemoptysis; Denies: non-productive cough GI: Denies: abdominal pain, nausea, vomiting, diarrhea, constipation or hematochezia : Denies: flank pain, dysuria or hematuria Musc: Denies: neck pain, back pain or extremity swelling Skin/Breast: Denies: rash or new lesions Neuro: Denies: headache(s), numbness in extremities or weakness in extremities PFSH ED PFSH: Medical History Anemia Anxiety and depression CAD (coronary artery disease) COPD (chronic obstructive pulmonary disease) GERD (gastroesophageal reflux disease) History of ST elevation myocardial infarction (STEMI) HTN (hypertension) Hyperlipidemia Hyponatremia Non-small cell cancer of right lung Peripheral arterial disease Stress-induced cardiomyopathy Surgical History Hx of colonoscopy S/P peripheral artery angioplasty with stent placement S/P PTCA (percutaneous transluminal coronary angioplasty) Family History Mother Cancer Father Cancer Hypertension Brother Myocardial infarction CAD (coronary artery disease) Denies family history of Diabetes Clotting disorder Dementia Hyperlipidemia Psychiatric illness Chronic kidney disease (CKD) Suicide Anesthesia complication Bleeding disorder Lung disease Stroke Social History Smoking and tobacco status: former smoker (smoked x 50+ years) Alcohol intake: never Physical Exam Const: COMMON NORMALS: patient oriented x3 and alert GENERAL APPEARANCE: cooperative HENMT: COMMON NORMALS: normocephalic HEAD & SCALP: normocephalic MOUTH: Normal oral and palatal mucosa present THROAT: posterior oropharynx normal and uvula midline Neck/C-Spine: COMMON NORMALS: supple GENERAL: Yes normal visual inspection Resp: COMMON NORMALS: normal respiratory effort, No retractions and No use of accessory muscles AUSCULTATION: diminished lung sounds on the right in the lower lung bess Cardio: COMMON NORMALS: regular rate, regular rhythm, S1 normal heart sound present, S2 normal heart sound present, No gallops present (Cardio), No clicks present (Cardio), No murmurs present (Cardio) and Peripheral pulses 2+ throughout RATE: regular rate RHYTHM: regular rhythm HEART SOUNDS: S1 normal heart sound present and S2 normal heart sound present PERIPHERAL PULSES: Peripheral pulses 2+ throughout GI: COMMON NORMALS: Normal to inspection, nondistended, normoactive bowel sounds present, Soft to palpation, non-tender and no masses PALPATION: Yes Soft to palpation : COMMON NORMALS: Yes no CVA tenderness BLADDER/KIDNEY EXAM: Yes no CVA tenderness Back/Pelvis: COMMON NORMALS: no CVA tenderness Extremity: COMMON NORMALS: normal to inspection Neuro: COMMON NORMALS: patient oriented x3 SENSORIUM/ORIENTATION: Yes alert GAIT: Yes Normal gait present Skin: GENERAL SKIN EXAM: dry skin Course Vital Signs: Vital signs: Vital Signs Temperature 97.9 F 02/19/22 19:03 Pulse Rate 136 H 02/19/22 19:03 Respiratory Rate 16 02/19/22 19:03 Blood Pressure 182/111 02/19/22 19:03 Pulse Oximetry 98 02/19/22 19:03 Oxygen Delivery Me thod 02/19/22 18:06 Oxygen Flow Rate 2 02/19/22 12:32 Fraction of Inspir ed Oxygen 100 02/19/22 18:41 MDM - General Adult Lab Data I reviewed the patient's lab results. 02/19/22 08:43 02/19/22 08:43 Radiology Impressions Chest CTA 02/19/22 09:12 IMPRESSION: 1. Development of subsegmental RIGHT lower lobe pulmonary emboli since 02/13/2022. 2. Chronic emphysema. 3. The large RIGHT hilar mass was recently described on 02/13/2022 with no interval change. 4. Atherosclerosis aorta. 5. LEFT ventricular hypertrophy. Chest X-Ray 02/19/22 18:12 IMPRESSION: Interval placement of an ETT, which terminates 1 cm above the jaida. No other significant change since the prior exam. Laboratory Results WBC 11.3 10^3/uL (4.0-10.0) H 02/19/22 08:43 RBC 4.17 10^6/uL (4.1-5.3) 02/19/22 08:43 Hgb 12.2 g/dL (11.5-15.3) 02/19/22 08:43 Hct 37.3 % (37.0-47.0) 02/19/22 08:43 MCV 89.4 fl (81-99) 02/19/22 08:43 MCH 29.3 pg (28.0-34.0) 02/19/22 08:43 MCHC 32.7 g/dL (30.0-36.0) 02/19/22 08:43 RDW 17.4 % (12.1-15.1) H 02/19/22 08:43 Plt Count 188 10^3/cmm (130-400) D 02/19/22 08:43 MPV 11.0 fL (7.4-10.4) H 02/19/22 08:43 Neut % (Auto) 70.8 % 02/19/22 08:43 Lymph % (Auto) 9.7 % 02/19/22 08:43 Stoddard % (Auto) 11.3 % 02/19/22 08:43 Eos % (Auto) 0.2 % 02/19/22 08:43 Baso % (Auto) 0.7 % 02/19/22 08:43 Neut # (Auto) 7.97 10^3/uL (1.8-7.7) H 02/19/22 08:43 Lymph # (Auto) 1.1 10^3/uL (0.8-4.8) 02/19/22 08:43 Stoddard # (Auto) 1.3 10^3/uL (0.2-0.9) H 02/19/22 08:43 Eos # (Auto) 0.0 10^3/uL (0.0-0.8) 02/19/22 08:43 Baso # (Auto) 0.1 10^3/uL (0.0-0.1) 02/19/22 08:43 Nucleated RBC % (auto) 0 % 02/19/22 08:43 Nucleated RBCs # 0.0 /100WBC 02/19/22 08:43 PT 13.70 SECONDS (12.1-14.9) 02/19/22 08:43 INR 1.02 (0.8-1.2) 02/19/22 08:43 APTT 32.4 SECONDS (23.9-36.7) 02/19/22 08:43 Specimen Type Arterial 02/19/22 17:50 Sample Site Femoral, right 02/19/22 17:50 ABG pH 7.08 (7.35-7.45) L* 02/19/22 17:50 ABG pCO2 35.4 mmHg (35-45) 02/19/22 17:50 ABG pO2 151.0 mmHg (80.0-100.0) H 02/19/22 17:50 ABG HCO3 10.5 mmol/L (22-26) L 02/19/22 17:50 ABG O2 Saturation 98.1 02/19/22 17:50 ABG Base Excess -18.5 mmol/L (-2.0-2.0) L 02/19/22 17:50 Pito Test N/a 02/19/22 17:50 A-a O2 Gradient 67.1 mmHg (5-10) H 02/19/22 17:50 Hematocrit 36.0 % (37-47) L 02/19/22 17:50 Hgb O2 Saturation 96.7 % (95-100) 02/19/22 17:50 Carboxyhemoglobin 0.4 %THgb (0.4-20.1) 02/19/22 17:50 Methemoglobin 1.1 % (0.4-1.5) 02/19/22 17:50 Total Hemoglobin 11.8 g/dL (12-16) L 02/19/22 17:50 Sodium 132.0 mmol/L (131-143) 02/19/22 17:50 Potassium 6.3 mmol/L (3.5-5.0) H 02/19/22 17:50 Glucose 235.0 mg/dL (70-115) H 02/19/22 17:50 Ionized Calcium 1.3 mmol/L (1.1-1.4) 02/19/22 17:50 O2 Delivery Device Ambu 02/19/22 17:50 FiO2 100.0 % 02/19/22 17:50 Channel Marketing Specialist ID Amh 02/19/22 17:50 Sodium 132 mmol/L (136-145) L 02/19/22 08:43 Potassium 4.0 mmol/L (3.5-5.1) 02/19/22 08:43 Chloride 95 mmol/L (98-107) L 02/19/22 08:43 Carbon Dioxide 23 mmol/L (22-29) 02/19/22 08:43 Anion Gap 18.0 (5-19) 02/19/22 08:43 BUN 20 mg/dL (8-23) 02/19/22 08:43 Creatinine 0.6 mg/dL (0.5-0.9) 02/19/22 08:43 GFR Calculation 99.7 mL/min (90-130) 02/19/22 08:43 Glucose 103 mg/dL (65-115) 02/19/22 08:43 Calculated Osmolality 277 mOsm/kg (285-295) L 02/19/22 08:43 Calcium 9.8 mg/dL (8.5-10.5) 02/19/22 08:43 Total Bilirubin 0.2 mg/dL (0.15-1.2) 02/19/22 08:43 AST 27 U/L (0-32) 02/19/22 08:43 ALT 22 U/L (0-33) 02/19/22 08:43 Alkaline Phosphatase 65 U/L (35-105) 02/19/22 08:43 Total Protein 6.9 g/dL (6.6-8.7) 02/19/22 08:43 Albumin 3.1 g/dL (3.5-5.2) L 02/19/22 08:43 Globulin 3.8 g/dL (1.3-4.6) 02/19/22 08:43 Blood Type A Positive 02/19/22 17:31 Rho(D) Type Positive 02/19/22 17:31 Antibody Screen Negative 02/19/22 17:31 Crossmatch See Detail 02/19/22 17:30 Discharge Plan Discharge Patient Disposition: Transfer to ED Clinical Impression: Cardiopulmonary arrest with successful resuscitation, Hematemesis of fresh blood, Cough with hemoptysis, Lung cancer, Pulmonary embolism, Pneumothorax, acute Condition: Stable Prescriptions: No Action alprazolam 1 mg tablet 1 mg PO QPM oxycodone 10 mg tablet 10 mg PO Q6H PRN (Reason: pain) 30 Days Qty: 120 0RF prednisone 10 mg tablet 10 mg PO BID Qty: 60 2RF albuterol sulfate 90 mcg/actuation HFA aerosol inhaler 2 puff inhalation Q6H PRN (Reason: shortness of breath or wheezing) Qty: 8.5 5RF sulfamethoxazole-trimethoprim [Bactrim DS] 800-160 mg tablet 1 tab PO BID 14 Days Qty: 28 0RF fluconazole [Diflucan] 100 mg tablet 100 mg PO DAILY Qty: 14 0RF Rx Instructions: take until resolved Ensure Liquid 1 ea PO 5XD omeprazole 20 mg capsule,delayed release(DR/EC) 20 mg PO DAILY Advil 200 mg Tablet 400 mg PO Q6H PRN (Reason: Pain) Dulcolax Stool Softener (dss) 100 mg Capsule 100 mg PO DAILY PRN (Reason: Constipation) Referrals: Galen Felipe [Primary Care Provider] - Coding Level of Care Code ED Tableau Lead for Chg Fwd Exam Comprehensive Documented by User: Ismael Rodgers 02/19/22 19:00 HPI - General Adult General: Chief complaint: General Medical Stated complaint: bleeding Time Seen by Provider: 02/19/22 08:10 PFSH ED PFSH: Medical History Anemia Anxiety and depression CAD (coronary artery disease) COPD (chronic obstructive pulmonary disease) GERD (gastroesophageal reflux disease) History of ST elevation myocardial infarction (STEMI) HTN (hypertension) Hyperlipidemia Hyponatremia Non-small cell cancer of right lung Peripheral arterial disease Stress-induced cardiomyopathy Surgical History Hx of colonoscopy S/P peripheral artery angioplasty with stent placement S/P PTCA (percutaneous transluminal coronary angioplasty) Family History Mother Cancer Father Cancer Hypertension Brother Myocardial infarction CAD (coronary artery disease) Denies family history of Diabetes Clotting disorder Dementia Hyperlipidemia Psychiatric illness Chronic kidney disease (CKD) Suicide Anesthesia complication Bleeding disorder Lung disease Stroke Social History Smoking and tobacco status: former smoker (smoked x 50+ years) Alcohol intake: never Procedures Chest Tube Chest Tube 1: Chest Tube Location: left, mid axillary line and fourth interspace Size of Tube (cm): 36 Chest Tube Prep: Yes betadine prep and sterile drapes applied Incision Made With: #10 blade Post Procedure: sutured to skin and sterile dressing applied Tube Drainage: none Post Procedure CXR?: Yes Patient Tolerated Procedure: Yes Intubation sedative: Etomidate Mg Given: 20 paralytic: Rocuronium Mg Given: 80 Laryngoscope: fiber optic video scope ET Tube Size: 8 ET Tube Uncuffed: Yes Tube Secured Depth (cm): 21 Tube Secured Location: lips Tube Placement Confirmation: visualized tube passing through cords, equal breath sounds bilaterally, no breath sounds over epigastrium and confirmation by capnometry Patient Tolerated Procedure: well Intubation Complications: none Course Vital Signs: Vital signs: Vital Signs Temperature 97.9 F 02/19/22 19:03 Pulse Rate 136 H 02/19/22 19:03 Respiratory Rate 16 02/19/22 19:03 Blood Pressure 182/111 02/19/22 19:03 Pulse Oximetry 98 02/19/22 19:03 Oxygen Delivery Me thod 02/19/22 18:06 Oxygen Flow Rate 2 02/19/22 12:32 Fraction of Inspir ed Oxygen 100 02/19/22 18:41 MDM - General Adult Medical Decision Making I Dr. Rodgers was summoned into the patient's room by nursing staff as the patient started having active hemoptysis versus hematemesis. Patient prior to my care had already been granted acceptance at [facility]/ . was immediately typed and screened 2 units of packed red blood cells for the patient which patient was moved to room 11. In which Dr. Barton recontacted back [facility] in regards to need for immediate transfer via air. Upon transfer the patient to room 11 the patient had a seizure in which she went unresponsive in which had a seizure in which in which patient was with rapid sequence intubation. Patient has a PICC line on the right side in which a large bore IV was also established a left. Patient went to cardiopulmonary arrest, iimmediately CPR was initiated 2 rounds of CPR were done as well as 2 doses of epinephrine given in which return of spontaneous circulation Post intubation a chest x-ray was obtained that revealed a large left-sided deep sulcus sign suggestive of pneumothorax. Patient is oxygenation is in the mid 80s. The determination for a chest tube placement was a determined by myself and Dr. Barton as well as Dr. House as comparison to prior from did not reveal deep sulcus sign. As well as patient had reduced oxygenation on [id number] please see note in regards to the patient's chest tube placement no difficulties or complications were noted immediately upon going into the chest wall gush of air was noted as well as fogging of the tube. Repeat chest x-ray was obtained that revealed that the chest tube was too deep and when she was pulled back approximately 4 cm. In which the chest tube was secured [facility] was recontacted back in which Dr. Rhodes in the ER granted acceptance as this patient will need to go to a higher level care then the medical surgical bed she was originally going to be transferred to. Lab Data 02/19/22 08:43 02/19/22 08:43 Radiology Impressions Chest CTA 02/19/22 09:12 IMPRESSION: 1. Development of subsegmental RIGHT lower lobe pulmonary emboli since 02/13/2022. 2. Chronic emphysema. 3. The large RIGHT hilar mass was recently described on 02/13/2022 with no interval change. 4. Atherosclerosis aorta. 5. LEFT ventricular hypertrophy. Chest X-Ray 02/19/22 18:12
[2022-02-19 08:49] LABS: Basophils # 0.1 10^3/uL (0.0-0.1); Basophils % 0.7 %; Eosinophils % 0.2 %; Hematocrit 37.3 % (37.0-47.0); Hemoglobin 12.2 g/dL (11.5-15.3); Lymphocytes # 1.1 10^3/uL (0.8-4.8); Lymphocytes % 9.7 %; Mean Corpuscular HGB Conc 32.7 g/dL (30.0-36.0); Mean Corpuscular Hemoglobin 29.3 pg (28.0-34.0); Mean Corpuscular Volume 89.4 fl (81-99); Monocytes # 1.3 10^3/uL (0.2-0.9); Monocytes % 11.3 %; Neutrophils # 7.97 10^3/uL (1.8-7.7); Neutrophils % 70.8 %; Nucleated Red Blood Cells % 0 %; Platelet Count 188 10^3/cmm (130-400); Red Blood Count 4.17 10^6/uL (4.1-5.3); Red Cell Distribution Width 17.4 % (12.1-15.1); White Blood Count 11.3 10^3/uL (4.0-10.0)
[2022-02-19 08:54] LABS: Slide Review Slide Review Perform
[2022-02-19 09:05] LABS: INR 1.02 (0.8-1.2)
[2022-02-19 09:06] LABS: Partial Thromboplastin Time 32.4 SECONDS (23.9-36.7)
[2022-02-19 09:11] LABS: Alanine Aminotransferase 22 U/L (0-33); Albumin Level 3.1 g/dL (3.5-5.2); Alkaline Phosphatase 65 U/L (35-105); Blood Urea Nitrogen 20 mg/dL (8-23); Calcium 9.8 mg/dL (8.5-10.5); Carbon Dioxide 23 mmol/L (22-29); Chloride 95 mmol/L (98-107); Globulin 3.8 g/dL (1.3-4.6); Glomerular Filtration Rate 99.7 mL/min (90-130); Glucose 103 mg/dL (65-115); Osmolality Calculated 277 mOsm/kg (285-295); Sodium 132 mmol/L (136-145); Total Bilirubin 0.2 mg/dL (0.15-1.2); Total Protein 6.9 g/dL (6.6-8.7)
--- NOTE | 2022-02-19 09:12 | CT_ITS ---
WS: [id number] CT CHEST ANGIOGRAPHY WITH REFORMATS HISTORY: coughing up blood, currently be treated for lung cancer TECHNIQUE: Contiguous axial images are obtained through the chest during arterial injection of intrav enous contrast. Images are reconstructed to evaluate the pulmonary arteries. MIP imaging also reviewe d. All CT scans at [facility] use at least one of these dose optimization techniques: automat ed exposure control; mA and/or kV adjustment per patient size (includes targeted exams where dose is matched to clinical indication); or iterative reconstruction. CONTRAST: Omnipaque 350; 61 mL IV. DLP: 199.23 mGy.cm COMPARISON: 02/13/2022 No central pulmonary embolism. Filling defects are present in the subsegmental branches of the RIGHT lower lobe. These defects are new since 02/13/2022. Moderate atherosclerotic plaque within the aorta. No aneurysm. Patient has a known RIGHT hilar mass measuring 3.0 x 3.2 cm. There is encasement of the RIGHT central bronchial tree with moderate stenosis but no occlusion. Soft tissue and tumor extends along the RIGHT lower lobe bronchovascular tree. These changes were recently described on 02/13/2022. There is adjacent groundglass attenuation with bronchial wall thickening and fibrotic changes extend ing into the RIGHT lower lobe. Air-filled collections or cavitation is reidentified superior segment RIGHT lower lobe. No interval change. Solid mass in the RIGHT upper lobe has resolved and there is no w a subsolid nodular cystic lesion. No change in the soft tissue burden in the mediastinum. LEFT ventricular hypertrophy. Tricuspid regur gitation into hepatic veins. No adrenal mass. CT/CT angio chest PE protcl [id number] IMPRESSION: 1. Development of subsegmental RIGHT lower lobe pulmonary emboli since 022. 2. Chronic emphysema. 3. The large RIGHT hilar mass was recently described on 02/13/2022 with no int erval change. 4. Atherosclerosis aorta. 5. LEFT ventricular hypertrophy.
[2022-02-19 09:36] LABS: Aspartate Amino Transferase 27 U/L (0-32)
[2022-02-19] MEDS: iohexol 350 mg/mL 500 mL Btl (per mL) IV (09:43)
[2022-02-19] MEDS: ipratropium-albuterol 3 mL Neb 6 ML INHALATION (09:48)
--- NOTE | 2022-02-19 11:00 | PC.NURSE ---
This nurse discussed with Rancho HENDRICKS about need for Lovenox due to patient's complaint of coughing up blood.
[2022-02-19] MEDS: enoxaparin 100 mg/mL Syringe 53 MG SUBCUT (11:05)
--- NOTE | 2022-02-19 17:38 | PC.NURSE ---
Pt shouted for help. This nurse entered pt room and saw patient vomiting large amounts of blood. pt transferred to ED room 10.
[2022-02-19] MEDS: octreotide 100 mcg/mL SDV 50 MCG IVP (17:46)
--- NOTE | 2022-02-19 17:55 | XRR_ITS ---
PROCEDURE INFORMATION: Exam: XR Chest Exam date and time: 02/19/2022 7:18 PM Age: 66 years old Clinical indication: Condition or disease and device placement; Ett placement (vent status); Lung condition and disease; Cancer of the lung; Right; Hilus; Prior surgery; Surgery date: 6+ months; Surgery type: Port; Additional info: Et tube placement TECHNIQUE: Imaging protocol: Radiologic exam of the chest. Views: 1 view. COMPARISON: CR XR chest 1V portable [id number] 02/19/2022 6:56 PM XR/XR chest 1V [id number] IMPRESSION: A left chest tube has been placed since the prior exam, with its tip in the superomedial left hemithorax. No pneumothorax is visualized. The ETT has been slightly retracted and now terminates 2.1 cm above the jaida. No other significant change.
--- NOTE | 2022-02-19 18:12 | XRR_ITS ---
PROCEDURE INFORMATION: Exam: XR Chest Exam date and time: 02/19/2022 6:56 PM Age: 66 years old Clinical indication: Condition or disease; Lung condition and disease; Cancer of the lung; Right; Hilus; Prior surgery; Surgery date: 6+ months; Surgery type: Port; Additional info: Bleeding TECHNIQUE: Imaging protocol: Radiologic exam of the chest. Views: 1 view. COMPARISON: 02/19/2022 CT scan of the chest FINDINGS: Tubes, catheters and devices: An ETT has been placed terminating 1 cm above the jaida. The right PICC line is stable in position. Lungs: The patient is mildly rotated to the right. Right lower lobe superior segment and faint right basilar opacities are again seen. The lungs are emphysematous. Pleural spaces: Unremarkable. No pleural effusion. No pneumothorax. Heart/Mediastinum: Unremarkable. No cardiomegaly. Bones/joints: Unremarkable. XR/XR chest 1V portable [id number] IMPRESSION: Interval placement of an ETT, which terminates 1 cm above the jaida. No other significant change since the prior exam.
--- NOTE | 2022-02-19 18:23 | PC.NURSE ---
Addendum entered by Marianna Gale RN 02/19/22 18:41: 1739 20 Etomidate administered. 1740 10 Rocuronium Original Note: 1540 Pt transferred to ED treatment room 11. Pt vomiting up large amounts of blood. Pt became pulseless and CPR was started. 1742 Pulse check. PEA. CPR continued. 1000mL NS Bag #1 started. \1744 1 Epinepherine given. 1745 Pulse check. PEA. 1746 50mcg Octreotide given in 20gIV in the Left AC. 1747 Pulse check. PEA. CPR continued. 1749 Pulse check. PEA. CPR continued. 1751 Pulse check. 1 Epinepherine administered. Pulses present. 1753 Unit blood #1 started on rapid infuser. 1803 Unit blood #1 complete. 1804 Unit blood #2 started on rapid infuser. 1818 Unit blood #2 complete. 1000mL NS Bag #2 Started.
[2022-02-19] MEDS: pantoprazole 40 mg SDV 80 MG IVP (18:39)
[2022-02-19 18:44] LABS: ABG PCO2 35.4 mmHg (35-45); Alveolar-Arterial Oxygen Gradi 67.1 mmHg (5-10); Base Excess ABG -18.5 mmol/L (-2.0-2.0); Blood Gas Operator Identificat AMH; Blood Gas Sample Site Femoral, right; Blood Gas Sample Type Arterial; Carboxyhemoglobin 0.4 %THgb (0.4-20.1); HCO3 ABG 10.5 mmol/L (22-26); HGB O2 Sat 96.7 % (95-100); Ionized Calcium Level - ABG 1.3 mmol/L (1.1-1.4); Methemoglobin 1.1 % (0.4-1.5); Oxygen Device AMBU; Oxygen Saturation ABG 98.1; Potassium Level - ABG 6.3 mmol/L (3.5-5.0); Total Hemoglobin 11.8 g/dL (12-16)
[2022-02-19 18:46] LABS: ABG PH Result 7.08 (7.35-7.45)
--- NOTE | 2022-02-19 19:52 | PC.NURSE ---
Addendum entered by Ирина Nance RN 02/19/22 20:16: 1915 Original Note: Report received from Yasmeen Biggs RN - patient, however, is being transferred out of facility at this time. Pt is intubated, has chest tube, right DL PICC line, left UA IV in place. [facility] team, [facility] team, Yasmeen Flowers RN; COLIN Cabral in room and transferring pt to EMS transport [facility]. No family noted in waiting room or here in room - clothing, shoes, and blue purse are all labled and given to EMS crew to go with patient. Patient left at 1925 with [facility] team.
== END 2022-02-19 19:15 ==
PROVIDERS: Physician Assistant; Emergency Provider Emergency Medicine; PCP Family Medicine
DX: I46.9 Cardiac arrest, cause unspecified (principal); K92.0 Hematemesis; R04.2 Hemoptysis; C34.90 Malignant neoplasm of unspecified part of unspecified bronchus or lung; I26.99 Other pulmonary embolism without acute cor pulmonale; J93.83 Other pneumothorax; Z87.891 Personal history of nicotine dependence; I25.10 Atherosclerotic heart disease of native coronary artery without angina pectoris; J44.9 Chronic obstructive pulmonary disease, unspecified; I25.2 Old myocardial infarction; I10 Essential (primary) hypertension; Z79.899 Other long term (current) drug therapy
CPT/HCPCS: 36430; 36600; 51702; 71045; 71275; 80051; 80053; 82330; 82805; 85025; 85610; 85730; 86850; 86900; 86920; 94002; 94640; 94799; 96372; 96374; 96375; 99291; C9113; J0171; J1650; J2354; J3490; P9016; Q9967

== ENCOUNTER 2022-02-25 10:30 | Oncology outpatient (recurring) (ONCR) | payer MEDICARE, SELFPAY ==
[2022-01-30 08:31] LABS: Basophils # 0.1 10^3/uL (0.0-0.1); Basophils % 0.4 %; Hematocrit 32.1 % (37.0-47.0); Hemoglobin 10.1 g/dL (11.5-15.3); Lymphocytes # 0.9 10^3/uL (0.8-4.8); Lymphocytes % 6.4 %; Mean Corpuscular HGB Conc 31.5 g/dL (30.0-36.0); Mean Corpuscular Hemoglobin 28.7 pg (28.0-34.0); Mean Corpuscular Volume 91.2 fl (81-99); Mean Platelet Volume 10.9 fL (7.4-10.4); Monocytes # 0.1 10^3/uL (0.2-0.9); Neutrophils # 11.96 10^3/uL (1.8-7.7); Neutrophils % 87.6 %; Nucleated Red Blood Cells % 0 %; Platelet Count 365 10^3/cmm (130-400); Red Blood Count 3.52 10^6/uL (4.1-5.3); Red Cell Distribution Width 19.5 % (12.1-15.1); White Blood Count 13.7 10^3/uL (4.0-10.0)
[2022-01-30 08:50] LABS: Alanine Aminotransferase 19 U/L (0-33); Albumin Level 3.4 g/dL (3.5-5.2); Alkaline Phosphatase 85 U/L (35-105); Anion Gap 15.3 (5-19); Aspartate Amino Transferase 15 U/L (0-32); Blood Urea Nitrogen 18 mg/dL (8-23); Calcium 9.8 mg/dL (8.5-10.5); Carbon Dioxide 25 mmol/L (22-29); Chloride 94 mmol/L (98-107); Globulin 3.4 g/dL (1.3-4.6); Glomerular Filtration Rate 123.1 mL/min (90-130); Glucose 188 mg/dL (65-115); Osmolality Calculated 277 mOsm/kg (285-295); Potassium 4.3 mmol/L (3.5-5.1); Sodium 130 mmol/L (136-145); Total Bilirubin 0.2 mg/dL (0.15-1.2); Total Protein 6.8 g/dL (6.6-8.7)
[2022-01-30 09:06] LABS: Slide Review Slide Review Perform
[2022-01-30] MEDS: sodium chloride 0.9% 250 ML 100 ML IV (10:37)
[2022-01-30] MEDS: palonosetron 0.25 mg/5 mL SDV IVP (10:37)
[2022-01-30] MEDS: famotidine 20 mg/2 mL INJ IVP (10:38)
[2022-01-30] MEDS: diphenhydrAMINE 50 mg/mL SDV 1mL IVP (10:39)
[2022-01-30] MEDS: OLANZapine 5 mg TABLET PO (10:41)
[2022-01-30] MEDS: fosaprepitant 150 MG in sodium chloride 0.9% 150 ML 300 MG IV (10:44)
[2022-01-30] MEDS: CARBOplatin 520 MG in sodium chloride 0.9% 500 ML 552 MG IV (14:40)
[2022-01-30] MEDS: pegfilgrastim 6 mg/0.6 mL Kit (onpro) SUBCUT (16:03)
--- NOTE | 2022-02-07 10:53 | PC.NURSE ---
PICC line sterile dressing change and flushed per protocol. Patient given next scheduled dressing change appt. Patient had c/o upper respiratory infection and coughing up green mucus and she wanted to be put on antibiotics. This nurse spoke to Dr. Smith regarding the patient and he gave verbal order for 500 mg Levaquin daily for 1 week. Kim SHAW was sending in the script to patient's pharmacy. Patient had no other questions or concerns.
[2022-02-13 12:01] LABS: Basophils # 0.1 10^3/uL (0.0-0.1); Basophils % 0.8 %; Hematocrit 23.5 % (37.0-47.0); Hemoglobin 7.9 g/dL (11.5-15.3); Lymphocytes # 1.6 10^3/uL (0.8-4.8); Lymphocytes % 25.9 %; Mean Corpuscular HGB Conc 33.6 g/dL (30.0-36.0); Mean Corpuscular Hemoglobin 29.9 pg (28.0-34.0); Monocytes # 0.5 10^3/uL (0.2-0.9); Monocytes % 7.5 %; Neutrophils # 3.94 10^3/uL (1.8-7.7); Nucleated Red Blood Cells % 0 %; Red Blood Count 2.64 10^6/uL (4.1-5.3); Red Cell Distribution Width 18.5 % (12.1-15.1); White Blood Count 6.2 10^3/uL (4.0-10.0)
[2022-02-13] MEDS: iohexol 350 mg/mL 500 mL Btl (per mL) IV (12:35)
[2022-02-13 12:57] LABS: Platelet Count 22 10^3/cmm (130-400); Slide Review Slide Review Perform
--- NOTE | 2022-02-13 13:00 | CT_ITS ---
WS: [id number] CT CHEST TECHNIQUE: Contrast enhanced CT of the chest with coronal and sagittal reformatted images. CLINICAL INFORMATION: Restaging COMPARISON: CT chest December 30, 2021, PET/CT 2021. CT chest November 11, 2021 DLP: 527.[address] scans at [facility] use at least one of these dose optimization techniques: automated e xposure control; mA and/or kV adjustment per patient size (includes targeted exams where dose is matc hed to clinical indication); or iterative reconstruction. FINDINGS: Advanced chronic emphysematous changes. Previous described RIGHT lower lobe necrotic tumor and/or emp yema has improved or evacuated in the interim. Associated cavitation in the superior segment RIGHT lo wer lobe extending to the RIGHT hilum in this area today. Mild associated peripheral nodular pleural thickening. Soft tissue thickening about the hilum has improved compared to previous. Residual soft t issue mass in this area measures 3.1 x 2.5 CM. Previously described spiculated RIGHT upper lobe lesion has essentially resolved with a small amount of residual hazy opacity in this location. 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 Recommend correlation with infectious or inflammatory symptoms. LEFT lung is wel l aerated. Aortic calcification. Coronary calcification. No axillary lymphadenopathy. Adrenal glands are normal. Normal spleen. Normal GE junction. Fatty atrophy of the pancreas. Splenic artery calcification. CT/CT chest w con* [id number] IMPRESSION: Overall findings compatible with interval response to treatment wit h improved but residual RIGHT hilar tumor. 1. Previously described spiculated RIGHT upper lobe nodule has essentially res olved with a small amount of residual hazy opacity. 2. Previously described RIGHT lower lobe collapse with associated necrotic roshan or and/or empyema has improved or evacuated in the interim. Cavitation in this area today with nodular peripheral pleural thickening. 3. RIGHT hilar mass has improved and today measures 3.1 x 2.5 CM. RIGHT mainst em bronchus remains patent. 4. 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 5. No other remarkable changes.
--- NOTE | 2022-02-18 | CT_ITS ---
Radiation Therapy Planning CT images; total exam DLP: 336.59 mGy-cm MTDD
--- NOTE | 2022-02-18 09:20 | PC.NURSE ---
PICC line dressing change per protocol. Pt tolerated procedure well. To radiation for treatment. dh
[2022-02-18 09:21] LABS: Basophils # 0.1 10^3/uL (0.0-0.1); Basophils % 0.8 %; Eosinophils % 0.1 %; Hemoglobin 12.5 g/dL (11.5-15.3); Lymphocytes # 1.1 10^3/uL (0.8-4.8); Lymphocytes % 13.3 %; Mean Corpuscular HGB Conc 32.9 g/dL (30.0-36.0); Mean Corpuscular Hemoglobin 29.2 pg (28.0-34.0); Mean Corpuscular Volume 88.8 fl (81-99); Mean Platelet Volume 11.2 fL (7.4-10.4); Monocytes # 0.9 10^3/uL (0.2-0.9); Monocytes % 10.6 %; Neutrophils # 5.69 10^3/uL (1.8-7.7); Neutrophils % 67.5 %; Nucleated Red Blood Cells % 0 %; Platelet Count 130 10^3/cmm (130-400); Red Blood Count 4.28 10^6/uL (4.1-5.3); Red Cell Distribution Width 17.5 % (12.1-15.1); White Blood Count 8.4 10^3/uL (4.0-10.0)
[2022-02-18 09:52] LABS: Slide Review Slide Review Perform
--- NOTE | 2022-02-18 10:22 | ONCRAD EPV_ITS ---
Radiation Oncology Established Patient Visit Patient: Jerod Rajput [id number] : 1955> Age: 66> Sex: Female> Dictated by: Dr. Damian Granados Date of Service: 02/18/2022 Referring Physician(s) : Diagnosis: C34.10 - Malignant neoplasm of upper lobe, unspecified bronchus or lung, Diagnosed 11/26/2021 (Active) Stage IIIB, T4, N2, M0 Radiotherapy to Date: None. Current History: Current Medications: Allergies: penicillin. Current Complaints / Review of Systems: . She complains of fatigue, weakness, aversion to food, altered taste, and cough productive of greenish sputum. She was put on the generic equivalent of Bactrim today by Dr. Jade. Her last chemotherapy was about [address] scan following chemotherapy shows dramatic improvement. The atelectasis of the right lower lobe appears completely resolved. The mass in the lower lobe has become cavitary. The lymphadenopathy looks stable. The right upper lobe nodule has almost completely resolved. Vital Signs: Performed on 02/18/2022 9:26 AM BMI - 18.884 kg/m2, Height - 66 in, Weight - 117 lbs, Temperature - 98.2 f, Pulse - 109 /min (high), Respiration - 18 /min, O2 Sat - 96 %, Pain - 0, Fatigue - 8 and BP - 109/ 64 mm(hg)(/low). Physical Exam: General: Alert and oriented x 3. No acute distress. She appears weak and chronically ill. HEENT: Normocephalic, atraumatic. Extraocular Movements Intact: Sclerae anicteric. Oral cavity has diffuse candidiasis. No other lesions seen. Mucous membranes are dry. NECK: Supple without cervical or supraclavicular Performance Status: ECOG 2 Lab: None pending. Pathology: Primary, c34.10 - malignant neoplasm of upper lobe, unspecified bronchus or lung, Diagnosed 11/26/2021 (active) stage iiib, t4, n2, m0. Imaging: See HPI Impression: Much improved on imaging. She has completed neoadjuvant chemotherapy. She is now ready for radiation with concomitant lower dose chemotherapy. I discussed the results of her CT. She was very relieved. I discussed nutrition extensively with her. I want her to take 5 cans of Ensure per day as well as eating what she is able to swallow. She will go on Diflucan 100 mg daily for 14 days. I explained to her that taking the Diflucan is particularly important since she is on an antibiotic for her lungs. Also recommended salt and soda rinses which, which may help the bad taste in her mouth. I discussed the proximity of her esophagus to the lymphadenopathy in the mediastinum. I told her she will have significant esophagitis during treatment and will probably need pain medication. Also discussed that she may develop esophageal stenosis and require a dilatation. I told her the improvement on her CT diminishes the risk of lung injury and permanent oxygen dependence, though it does not eliminate it. I discussed the risk of pericarditis, but told her that we would minimize the amount of heart in the field as much as possible. Mrs. Newsome is anxious to proceed with the recommended treatment. Simulation will be performed today. Signed by: 02/18/2022 10:20:42 AM <<Signature on File>> Time spent with patient: CPT Code: CPT Code:
== END 2022-02-26 23:59 | disposition home or self-care (01) ==
PROVIDERS: Internal Medicine Medical Oncology; PCP Family Medicine; Visit Provider Specialist
DX: C34.2 Malignant neoplasm of middle lobe, bronchus or lung
CPT/HCPCS: 36415; 36592; 71260; 77300; 77301; 77338; 80053; 85025; 87070; 87077; 87186; 96367; 96372; 96375; 96377; 96413; 96415; 96417; 99214; J1200; J1453; J2469; J2506; J3490; J7030; J7040; J7050; J9045; J9267